=== PATIENT | female | born 1960 | race Caucasian/White ===

== ENCOUNTER 2021-08-31 11:47 | Emergency (ER) | payer OTHER, SELFPAY ==
--- NOTE | ~2021-08-31 | CT_ITS ---
EXAMINATION: CT ABDOMEN AND PELVIS WITHOUT CONTRAST CLINICAL INFORMATION: Difficulty voiding, significant L CVA tenderness COMPARISON: Ultrasound abdomen 12/09/[address] abdomen pelvis 08/05/2009r TECHNIQUE: Multidetector volumetric imaging was performed from the superior aspect of the liver through the pubic symphysis. Sagittal and coronal reformatted images were obtained on the technologist's workstation. This CT examination was performed using dose optimization techniques as appropriate, variously including the following: *Automated exposure control *Adjustment of mA and/or kV according to patient size (this includes techniques or standardized protocols for targeted exams where dose is matched to indication/reason for exam; i.e. extremities or head) *Use of iterative reconstruction technique DLP: 560 mGy-cm FINDINGS: LUNG BASES: The visualized lung bases are unremarkable. LIVER, GALLBLADDER, AND BILIARY TREE: The liver is enlarged measuring 21 cm in cephalocaudad dimension and demonstrates decreased attenuation consistent with hepatic steatosis. No focal hepatic lesion or biliary ductal dilatation is present. The gallbladder is unremarkable with no evidence of radiopaque gallstones, gallbladder wall thickening, or obvious pericholecystic inflammatory changes. PANCREAS: Unremarkable. SPLEEN: Unremarkable. ADRENAL GLANDS: Unremarkable. KIDNEYS AND URETERS: The kidneys are normal in size, shape, and attenuation. Benign bilateral parapelvic renal cysts are present, increased in size since 2009. No solid renal masses. No hydronephrosis, hydroureter, or calculi seen. No perinephric stranding. BLADDER: Unremarkable. GASTROINTESTINAL TRACT: The small and large bowel are unremarkable. The appendix is not seen but there is no evidence of appendicitis.. ABDOMINAL WALL: No significant hernia is appreciated. LYMPH NODES: Normal. VASCULAR: Unremarkable. PELVIC VISCERA: Uterus is mildly enlarged with lobulation consistent with fibroids which have been seen in the past. OSSEOUS STRUCTURES: Unremarkable. CT/CT abdomen pelvis wo con IMPRESSION: No evidence of obstructive uropathy. Benign bilateral parapelvic cysts which need no further imaging or follow-up. Redemonstration of uterine fibroids. Fleischner guidelines were followed.
[2021-08-31 13:25] VITALS: BP 114/67; PULSE 79; RESP 18; TEMP 36.7; O2SAT 100; BMI 28.1
[2021-08-31 14:33] VITALS: BP 104/69; PULSE 80; RESP 13; TEMP 36.9; O2SAT 97
--- NOTE | 2021-08-31 14:43 | ED_ITS ---
HPI - Female Genitourinary General Chief complaint: Urogenital-Female Stated complaint: Blatter pain ,trouble urinating and walking Time Seen by Provider: 08/31/21 14:26 Source: patient Mode of arrival: ambulatory Limitations: no limitations History of Present Illness HPI Narrative: Patient presents emergency department for evaluation of urinary symptoms. She reports onset of symptoms 2 days ago. Feeling suprapubic pressure having difficulty voiding, and voiding very small amounts of urine with a persistent f eeling of a full bladder afterwards. Urinary urgency as well. Today she is experiencing lower back pain radiating into the bilateral legs. She attempted to take azo [id number] for her symptoms this morning, but had no relief. She does report associated nausea without vomiting. Denies fevers, chills, upper abdominal pain, chest pain, shortness of breath, numbness or tingling of the extremities, weakness Related Data Previous Rx's Medication Instructions Recorded ciprofloxacin HCl 500 mg tablet 500 mg PO Q12H 7 days #14 tabs 08/31/21 Allergies Allergy/AdvReac Type Severity Reaction Status Date / Time No Known Allergies Allergy Verified 08/31/21 13:25 Review of Systems Review of Systems: Constitutional: No weight loss, fever, chills, weakness or fatigue. Skin: No rash or itching. Cardiovascular: No chest pain, chest pressure or chest discomfort. No palpitations Respiratory: No shortness of breath, cough or sputum production. Gastrointestinal: Positive nausea No vomiting or diarrhea. Positive abdominal pain Genitourinary: Positive burning micturition. Positive urinary urgency and hesitancy. Positive suprapubic pain Musculoskeletal: Positive back pain. No joint pain or stiffness. Psychiatric: No depression or anxiety. Yes all other systems are reviewed and are negative [facility] Past Medical History Attestation statement: The following information was validated with the patient. Source: old records reviewed Medical History (Updated 08/31/21 @ 16:37 by Lovely Moon CNP) Carpal tunnel syndrome, bilateral Diabetes HTN (hypertension) Surgical History (Updated 08/31/21 @ 15:49 by Vesta Hill) Hx of appendectomy Social History Social History Patient Tobacco Use Status: Never used Tobacco Use of substances other than those prescribed or required for medical reasons: No Advance Directives: Yes Advance Directives Information Provided: Yes Advance Directives on File: No Patient : No Physical Exam Vital Signs: Vital Signs: Last Vital Signs Temp 98.4 F 08/31/21 14:33 Pulse 75 08/31/21 15:37 Resp 14 08/31/21 15:37 BP 100/66 08/31/21 15:37 Pulse Ox 97 08/31/21 15:37 O2 Del Method 08/31/21 14:33 BMI result Body Mass Index 28.1 Vital signs have been reviewed as normal and appeared to be correct. Blood pressure normal.? Heart rate normal.? Respiration rate normal. Temperature normal.? Oxygen saturation normal. Appearance: Alert.?Oriented to person, place and time. No acute distress.?Normal affect. Eyes: Pupils equal, round and reactive to light.? ENT: Pharynx normal.?? Neck: Normal inspection.? Neck supple.?? CVS: Heart sounds normal. Normal heart rate and rhythm.? Pulses normal.?? Respiratory: No respiratory distress.? Lung sounds clear to auscultation bilaterally?? Abdomen: Soft with tenderness over the suprapubic region. Normoactive bowel sounds. Significant left CVA tenderness Skin: Skin warm and dry.? Normal skin color.? ?? Extremities: No lower extremity edema.? ? Neuro: Moves all extremities spontaneously. Sensation intact bilaterally. CN II- XII intact. No focal neuro deficits. Ambulates with normal steady gait. Course Course Course Narrative: Patient is a 61-year-old female with a past medical history of type 2 diabetes, hyperlipidemia presents emergency department for evaluation genitourinary complaints. She is overall well appearing, hemodynamically stable. Will obtain CBC to evaluate for leukocytosis/ anemia, CMP to evaluate for abnormal electrolytes /abnormal renal function/ abnormal hepatic function, Urinalysis., and CT of the abdomen/pelvis to evaluate for renal calculi, hydronephrosis given significant left CVA tenderness, in addition to a PVR bladder scan.. Reevaluation(s) Reevaluation #1: PVR bladder scan 92, no urinary retention. CBC overall unremarkable, no leukocytosis. CMP overall unremarkable, no SONI. Urinalysis reveals significant glucosuria, positive nitrates and WBC consistent with urinary tract infection, in addition microscopic hematuria. Time: 15:19 Reevaluation #2: CT of the abdomen reveals no obstructive pathology, benign bilateral parapelvic renal cysts, no hydronephrosis no perinephric stranding no calculi. At this time will treat patient for urinary tract infection with a course of antibiotics, discussed worrisome signs and symptoms to return back to the emergency department for outpatient follow-up with her primary care provider within 3 days, all questions were answered, and she was discharged home in stable condition. Time: 16:38 [facility] - Female Genitourinary Medical Records Attestation: I reviewed the patient's medical records. Lab Data Attestation: I reviewed the patient's lab results. Result diagrams: 08/31/21 14:40 08/31/21 14:40 Labs: Lab Results 08/31/21 08/31/21 08/31/21 Range/Units 14:40 14:40 14:41 WBC 8.6 (4.8-10.8) X10*3/uL RBC 5.47 (4.20-5.50) X10*6/uL Hgb 14.1 (12.0-16.0) g/dl Hct 43.8 (37.0-47.0) % MCV 80.1 (80.0-98.0) fL MCH 25.8 L (27.0-33.0) pg MCHC 32.2 (31.0-35.0) g/dl RDW 15.9 (11.0-16.0) % Plt Count 180 (160-400) X10*3/uL MPV 9.5 (9.4-12.3) fL Immature Gran % (Auto) 0.1 (0.0-0.4) % Neut % (Auto) 63.5 (45-73) % Lymph % (Auto) 28.0 (20-40) % Sampson % (Auto) 7.7 (2-11) % Eos % (Auto) 0.5 (0-4) % Baso % (Auto) 0.2 (0-2) % Lymph # (Auto) 2.4 (1.2-4.9) X10*3/uL Sampson # (Auto) 0.7 (0.1-1.2) X10*3/uL Eos # (Auto) 0.0 (0.0-0.4) X10*3/uL Baso # (Auto) 0.0 (0.0-0.2) X10*3/uL Abs Immat Gran (auto) 0.01 (0.00-0.03) X10*3/uL Absolute Neuts (auto) 5.5 (2.0-8.3) x10*3/uL Absolute Nucleated RBC 0.000 (0.0-0.012) X10*3/uL Nucleated RBC % (auto) 0.0 (0.0-0.2) /100WBC Sodium 140 (135-145) mmol/L Potassium 4.2 (3.3-5.1) mmol/L Chloride 107 (96-108) mmol/L Carbon Dioxide 25 (22-29) mmol/L Anion Gap 12 (12-20) BUN 17 H (9-16) mg/dL Creatinine 0.72 (0.5-1.4) mg/dL Estim Creat Clear Calc 92.4 Estimated GFR > 60 Random Glucose 140 H (60-115) mg/dL Calcium 9.5 (8.4-10.2) mg/dL Total Bilirubin 0.5 (0.0-1.0) mg/dL AST 12 (5-31) U/L ALT 21 (0-31) U/L Alkaline Phosphatase 84 (39-117) U/L Total Protein 6.7 (6.5-8.0) g/dL Albumin 4.2 (3.5-5.0) g/dL Urine Color ORANGE A Urine Appearance HAZY Urine pH 5.0 (5.0-8.0) Ur Specific [place] 1.025 (1.005-1.025) Urine Protein 2+ H (NEG-TRACE) MG/DL Urine Glucose (UA) >=1000 H (NEG) MG/DL Urine Ketones 5 (NEG) MG/DL Urine Blood 3+ H (NEG) Urine Nitrite POS H (NEG) Ur Leukocyte Esterase TRACE H (NEG) Urine RBC 30-49 H (0) /HPF Urine WBC 50-75 H (0-4) /HPF Ur Squamous Epith Cells NONE /LPF Urine Bacteria 3+ /LPF Imaging Data CT scan - abdomen: Radiologist's impression: CT/CT abdomen pelvis wo con IMPRESSION: No evidence of obstructive uropathy. Benign bilateral parapelvic cysts which need no further imaging or follow-up. Redemonstration of uterine fibroids Discharge Plan Discharge Clinical Impression: Urinary tract infection Patient Disposition: Home, Self-Care Instructions: Urinary Tract Infection in Women (ED) Additional Instructions: You were found to have a urinary tract infection, you have been given a prescription for an antibiotic, please complete this entire course. You should be re-evaluated if you develop severe or worsening symptoms such as fevers, chills, nausea with constant vomiting, worsening pain, inability to urinate. Follow-up with your primary care provider within 3 days. Prescriptions: New ciprofloxacin HCl 500 mg tablet 500 mg PO Q12H 7 Days Qty: 14 0RF Referrals: Ly Anderson NP [Primary Care Provider] - 3 days Interventions: ED Discharge Assessment Last Done: 08/31/21 16:59 Discharge Date/Time: 08/31/21 16:59 Print Language: [place]
[2021-08-31 14:45] LABS: MANUAL DIFF FLAG NO
[2021-08-31 14:50] LABS: Basophils Percent Auto 0.2 % (0-2); Eosinophils Percent Auto 0.5 % (0-4); Hematocrit 43.8 % (37.0-47.0); Hemoglobin 14.1 g/dl (12.0-16.0); Imm Gran Abs Auto 0.01 X10*3/uL (0.00-0.03); Imm Gran Pct Auto 0.1 % (0.0-0.4); Lymphocytes Absolute Auto 2.4 X10*3/uL (1.2-4.9); Mean Corpuscular HGB Conc 32.2 g/dl (31.0-35.0); Mean Corpuscular Hemoglobin 25.8 pg (27.0-33.0); Mean Corpuscular Volume 80.1 fL (80.0-98.0); Mean Platelet Volume 9.5 fL (9.4-12.3); Monocytes Absolute Auto 0.7 X10*3/uL (0.1-1.2); Monocytes Percent Auto 7.7 % (2-11); Neutrophils Absolute Auto 5.5 x10*3/uL (2.0-8.3); Neutrophils Percent Auto 63.5 % (45-73); Platelet Count 180 X10*3/uL (160-400); Red Blood Count 5.47 X10*6/uL (4.20-5.50); Red Cell Distribution Width 15.9 % (11.0-16.0); White Blood Count 8.6 X10*3/uL (4.8-10.8)
[2021-08-31 14:59] LABS: Appearance Urine HAZY; Color Urine ORANGE; Glucose Urine UA >=1000 MG/DL (NEG); Leukocyte Esterase Urine TRACE (NEG); Nitrite Urine POS (NEG); Specific Gravity - Urine 1.025 (1.005-1.025); UACC Culture Trigger YES; Urine Blood 3+ (NEG); Urine Ketones 5 MG/DL (NEG); Urine Protein 2+ MG/DL (NEG-TRACE)
[2021-08-31 15:08] LABS: Alanine Aminotransferase 21 U/L (0-31); Albumin Level 4.2 g/dL (3.5-5.0); Alkaline Phosphatase 84 U/L (39-117); Anion Gap 12 (12-20); Aspartate Amino Transferase 12 U/L (5-31); Bilirubin Total 0.5 mg/dL (0.0-1.0); Blood Urea Nitrogen 17 mg/dL (9-16); Calcium 9.5 mg/dL (8.4-10.2); Carbon Dioxide 25 mmol/L (22-29); Chloride 107 mmol/L (96-108); Creatinine Clr Calc Pharmacy 92.4; Estimated Glomerular Filt Rate > 60; Glucose Random 140 mg/dL (60-115); Potassium 4.2 mmol/L (3.3-5.1); Sodium 140 mmol/L (135-145); Total Protein 6.7 g/dL (6.5-8.0)
[2021-08-31 15:14] LABS: WBC Urine 50-75 /HPF (0-4)
[2021-08-31 15:15] LABS: Bacteria Urine 3+ /LPF; RBC Urine 30-49 /HPF (0)
[2021-08-31 15:37] VITALS: BP 100/66; PULSE 75; RESP 14; O2SAT 97
== END 2021-08-31 16:59 | disposition home or self-care (01) ==
PROVIDERS: Emergency Provider Emergency Medicine Emergency Medical Services; PCP Nurse Practitioner Family
DX: N39.0 Urinary tract infection, site not specified (principal); B96.20 Unspecified Escherichia coli [E. coli] as the cause of diseases classified elsewhere; R31.29 Other microscopic hematuria; R39.15 Urgency of urination; E11.9 Type 2 diabetes mellitus without complications; I10 Essential (primary) hypertension
CPT/HCPCS: 36415; 51798; 74176; 80053; 81001; 85025; 87086; 87088; 87186; 99284

== ENCOUNTER 2022-04-29 23:28 | Emergency (ER) | payer OTHER, SELFPAY ==
--- NOTE | ~2022-04-29 | CT_ITS ---
EXAMINATION: CT ABDOMEN AND PELVIS WITH CONTRAST CLINICAL INFORMATION: Epigastric pain COMPARISON: 08/31/2021 TECHNIQUE: Multidetector volumetric images were obtained from the superior aspect of the liver through the pubic symphysis following administration 85 mL of Omnipaque 350 intravenous contrast. Sagittal and coronal reformatted images were obtained on the technologist's workstation. Oral contrast: No This CT examination was performed using dose optimization techniques as appropriate, variously including the following: *Automated exposure control *Adjustment of mA and/or kV according to patient size (this includes techniques or standardized protocols for targeted exams where dose is matched to indication/reason for exam; i.e. extremities or head) *Use of iterative reconstruction technique DLP: 573 mGy-cm FINDINGS: LUNG BASES: The visualized lung bases are unremarkable. LIVER, GALLBLADDER, AND BILIARY TREE: The liver is enlarged measuring 21 cm in CC dimension. Normal shape and attenuation. No focal hepatic lesion or biliary ductal dilatation is present. The gallbladder is unremarkable with no evidence of radiopaque gallstones, gallbladder wall thickening, or obvious pericholecystic inflammatory changes. PANCREAS: Unremarkable. SPLEEN: Unremarkable. ADRENAL GLANDS: Unremarkable. KIDNEYS AND URETERS: The kidneys are normal in size, shape, and attenuation. No hydronephrosis, hydroureter, or calculi seen. No perinephric stranding. Simple cyst at the upper pole of the right kidney. Small parapelvic cysts on the left. No specific follow-up recommended. BLADDER: Unremarkable. GASTROINTESTINAL TRACT: The stomach is distended. Normal caliber small bowel. No obstruction. No colonic wall thickening or inflammation. No free air or free fluid. ABDOMINAL WALL: No significant hernia is appreciated. LYMPH NODES: Normal. VASCULAR: Unremarkable. PELVIC VISCERA: Anteverted uterus with lobulations, suggestive of fibroids. No adnexal mass. OSSEOUS STRUCTURES: No acute or suspicious osseous abnormality. Mild degenerative change in the spine and hips. Fixation hardware in the left femur. CT/CT abdomen pelvis w IV con IMPRESSION: 1. No acute findings in the abdomen or pelvis. No inflammatory changes. 2. Hepatomegaly. 3. Distended stomach Fleischner guidelines were followed.
[2022-04-29 23:30] VITALS: BP 127/83; PULSE 104; RESP 20; TEMP 36.5; O2SAT 99; BMI 26.6
[2022-04-30 00:09] LABS: MANUAL DIFF FLAG NO
[2022-04-30 00:11] LABS: Basophils Percent Auto 0.2 % (0-2); Eosinophils Absolute Auto 0.1 X10*3/uL (0.0-0.4); Eosinophils Percent Auto 1.5 % (0-4); Hematocrit 45.3 % (37.0-47.0); Hemoglobin 14.8 g/dl (12.0-16.0); Imm Gran Abs Auto 0.02 X10*3/uL (0.00-0.03); Imm Gran Pct Auto 0.2 % (0.0-0.4); Lymphocytes Absolute Auto 1.5 X10*3/uL (1.2-4.9); Lymphocytes Percent Auto 17.6 % (20-40); Mean Corpuscular HGB Conc 32.7 g/dl (31.0-35.0); Mean Corpuscular Volume 76.6 fL (80.0-98.0); Mean Platelet Volume 9.1 fL (9.4-12.3); Monocytes Absolute Auto 0.5 X10*3/uL (0.1-1.2); Monocytes Percent Auto 5.3 % (2-11); Neutrophils Absolute Auto 6.6 x10*3/uL (2.0-8.3); Neutrophils Percent Auto 75.2 % (45-73); Platelet Count 209 X10*3/uL (160-400); Red Blood Count 5.91 X10*6/uL (4.20-5.50); Red Cell Distribution Width 14.1 % (11.0-16.0); White Blood Count 8.8 X10*3/uL (4.8-10.8)
[2022-04-30 00:27] LABS: Alanine Aminotransferase 17 U/L (0-31); Alkaline Phosphatase 99 U/L (39-117); Anion Gap 15 (12-20); Aspartate Amino Transferase 15 U/L (5-31); Bilirubin Direct < 0.2 mg/dL (0.0-0.5); Bilirubin Total 0.6 mg/dL (0.0-1.0); Blood Urea Nitrogen 18 mg/dL (9-16); Calcium 9.2 mg/dL (8.4-10.2); Carbon Dioxide 25 mmol/L (22-29); Chloride 104 mmol/L (96-108); Creatinine Clr Calc Pharmacy 93.9; Estimated Glomerular Filt Rate > 60; Glucose Random 164 mg/dL (60-115); Lipase 20 U/L (8-78); Sodium 140 mmol/L (135-145); Total Protein 6.3 g/dL (6.5-8.0)
--- OUTSIDE RECORDS SUMMARY | 2022-04-30 00:34 | XMS_ITS | Continuity of Care Document ---
:1960 Author Organization [facility] Address [address] [place] [address]- Care Team Providers Name Role Phone Justin MIMS, Ly Rivers Primary Care Physician [phone] [place] [facility]): [place]/08[place]19 - 07/08/19 [facility] [address] [place] [id number] [facility] Attending Physician: Trevon Walls Admitting Physician: AdmtrTrevon Referring Physician: Admtr, Ar8 Allergies, Adverse Reactions, Alerts Substance Reaction Severity Status NKA Active Immunizations Given and Recorded Vaccine Date Status Refusal Reason influenza virus vaccine, inactivated1 03/10/19 Given tetanus/diphtheria/pertussis, acel(Tdap) 06/22/11 Recorde d Hepatitis B Vaccine (old term) 01/03/10 Recorded Hepatitis B Vaccine (old term) 03/19/08 Recorded Hepatitis B Vaccine (old term) 01/16/08 Recorded pneumococcal 23-valent vaccine 01/03/10 Recorded tetanus-diphtheria toxoids (Td) 05/20/07 Recorded 1Result Comment: [facility]U [facility] [id number] Medications amitriptyline 25 mg oral tablet 50 mg, 2, tablet, By Mouth, Daily at bedtime, 2 tab at bedtime. print in swedish please, # 60 tablet, Refills 6, Tot. Refills 6, Maintenance, 04/21/19 10:06:00 EDT, Route to Pharmacy Electronically, [facility] - [place], 167, cm, 03/17... Start Date: 04/21/19 Stop Date: 11/17/19 Status: OrderedGas-X Extra Strength 125 mg oral tablet, chewable See Instructions, 1 tablet Chew 4 times a day, # 90 tablet, 1 Refills, Maintenance, 08/18/18 9:53:36EDT, Chew Tablet Start Date: 08/18/18 Status: OrderedJardiance 10 mg oral tablet 1 tablet = 10 mg, By Mouth, Daily in AM, # 30 tablet, 4 Refills, Maintenance, 04/30/19 16:56:00 EDT,Tablet, [facility], 167, cm, 04/30/19 8:51:00 EDT, Height Start Date: 04/30/19 Stop Date: 09/27/19 Status: OrderedLantus Solostar Pen 100 units/mL subcutaneous solution = 45 units, Subcutaneous Injection, Daily at bedtime, rotate injection sites with evening meal, # 15mL, 3 Refills, Maintenance, 05/12/19 14:23:00 EDT, Injection, [facility], dose increase, 167, cm, 05/12/19 13:30:00 EDT, Height Start Date: 05/12/19 Stop Date: 09/09/19 Status: Orderedlisinopril 30 mg oral tablet 1 tablet = 30 mg, By Mouth, Daily, # 30 tablet, 5 Refills, Maintenance, 05/04/19 9:58:00 EDT, Tablet, [facility], 167, cm, 04/30/19 8:51:00 EDT, Height Start Date: 05/04/19 Stop Date: 10/31/19 Status: OrderedmetFORMIN 1000 mg oral tablet 1 tablet = 1,000 mg, By Mouth, 2 times a day, # 60 tablet, 5 Refills, Maintenance, 03/09/19 14:35:00EST, Tablet, [facility] - [place], 167, cm, 11/18/18 14:43:00 EDT, Height Start Date: 03/09/19 Stop Date: 09/05/19 Status: Orderedomeprazole 20 mg oral delayed release tablet 1 tablet = 20 mg, By Mouth, Daily, # 30 tablet, 11 Refills, Maintenance, 08/18/18 9:49:46 EDT Start Date: 08/18/18 Stop Date: 08/13/19 Status: Orderedsimvastatin 40 mg oral tablet 40 mg, 1, tablet, By Mouth, Daily at bedtime, # 30 tablet, Refills 5, Tot. Refills 5, Maintenance, 03/09/19 14:28:00 EST, Route to Pharmacy Electronically, [facility] - , 167, cm,11/18/18 14:43:00 EDT, Height Start Date: 03/09/19 Stop Date: 09/05/19 Status: OrderedTrulicity Pen 1.5 mg/0.5 mL subcutaneous solution 0.5 mL = 1.5 mg, Subcutaneous Injection, Every week, rotate injection sites, # 2 mL, 11 Refills, Maintenance, 05/12/19 14:21:00 EDT, Solution, [facility], 167, cm, 05/12/19 13:30:00EDT, Height Start Date: 05/12/19 Status: OrderedUlticare pen needles 4mm 32g Ulticare pen needles 4mm 32g, See Instructions, # 200 each, Refills 2, Tot. Refills 2, Maintenance, use daily to test blood sugars dx e11.6, 10/09/18 16:44:57 EDT, Compound Start Date: 10/09/18 Status: OrderedVitamin D3 2000 intl units oral capsule 1 capsule = 2,000 International_Units, By Mouth, Daily, # 30 capsule, 3 Refills, Maintenance, 07/01/19 14:51:00 EDT, Capsule, [facility], 167, cm, 05/12/19 13:30:00 EDT, Height Start Date: 07/01/19 Stop Date: 10/29/19 Status: Ordered Problem List Condition Effective Dates Status Health Status Informant Diabetes(Confirmed) Active Hypertension(Confirmed) Active Hypertriglyceridemia(Confirmed) Active Migraines(Confirmed) Active Uncontrolled type 2 diabetes Active mellitus(Confirmed) Social History Social History Type Response Smoking Status Never (less than 100 in life time) entered on: 06/12/18 Sex
--- OUTSIDE RECORDS SUMMARY | 2022-04-30 00:35 | XMS_ITS | Continuity of Care Document ---
:1960 Author Organization [facility] Address [address] [place] [address]- Care Team Providers Name Role Phone Justin MIMS, Ly Rivers Primary Care Physician [phone] [facility] [place] [facility] [address] [place] [id number]- Allergies, Adverse Reactions, Alerts No Known Allergies Immunizations Given and Recorded Vaccine Date Status Refusal Reason SARS-CoV-2 (COVID-19) mRNA BNT-162b2 vac 10/06/20 Recorde d SARS-CoV-2 (COVID-19) mRNA BNT-162b2 vac 09/15/20 Recorde d influenza virus vaccine, inactivated 10/15/19 Recorded influenza virus vaccine, inactivated1 03/10/19 Given influenza virus vaccine, inactivated 12/18/16 Recorded influenza virus vaccine, inactivated 12/09/13 Recorded influenza virus vaccine, inactivated 10/21/09 Recorded influenza virus vaccine, inactivated 01/16/08 Recorded Influenza Virus Vaccine (oldterm) 10/13/19 Recorded tetanus/diphtheria/pertussis, acel(Tdap) 06/22/11 Recorde d pneumococcal 23-valent vaccine 01/03/10 Recorded Hepatitis B Vaccine (old term) 01/03/10 Recorded Hepatitis B Vaccine (old term) 03/19/08 Recorded Hepatitis B Vaccine (old term) 01/16/08 Recorded tetanus-diphtheria toxoids (Td) 05/20/07 Recorded 1Result Comment: FLU [facility] 84133-414-86 Medications amitriptyline 25 mg oral tablet 2, tablet, By Mouth, Daily at bedtime, # 60 tablet, Refills 7, Route to Pharmacy Electronically, [facility], 167, cm, 08/03/21 14:26:00 EDT, Height Start Date: 08/15/21 Status: Orderedcetirizine 10 mg oral tablet 1 tablet = 10 mg, By Mouth, Daily, # 14 tablet, 0 Refills, Maintenance, 05/26/20 8:18:00 EDT, Tablet, [facility], [place] instructions, 167, cm, 04/19/20 9:56:00 EST, Height Start Date: 05/26/20 Stop Date: 06/09/20 Status: Ordereddulaglutide 1.5 mg/0.5 mL subcutaneous solution 0.5 mL = 1.5 mg, Subcutaneous Injection, Every week, # 4 each, 11 Refills, Maintenance, 07/20/21 9:20:00 EDT, Solution, [facility], Partial fill upon patient request if the prescription is for a schedule II opioid drug., 167, cm, 0... Start Date: 07/20/21 Stop Date: 07/15/22 Status: OrderedFreestyle lite glucometer Freestyle lite glucometer, See Instructions, # 1 pack/packet, Refills 0, Tot. Refills 0, Maintenance, freestyle lite glucometer, 05/17/21 16:04:00 EDT, Supply, 167, cm, 05/17/21 15:37:00 EDT, Height Start Date: 05/17/21 Status: Orderedfreestyle lite lancets freestyle lite lancets, See Instructions, # 1 pack/packet, Refills 6, Tot. Refills 6, Maintenance, to use to check blood sugars up to 4 times a day with 30 days supply, 05/17/21 16:04:00 EDT, Supply, 167, cm, 05/17/21 15:37:00 EDT, Height Start Date: 05/17/21 Status: Orderedfreestyle lite strips freestyle lite strips, See Instructions, # 1 pack/packet, Refills 6, Tot. Refills 6, Maintenance, freestyle lite strips to check blood sugars four times a day 30 days supply, 05/17/21 16:04:00 EDT, Supply, 167, cm, 05/17/21 15:37:00 EDT, Height Start Date: 05/17/21 Status: OrderedGas-X Extra Strength 125 mg oral tablet, chewable See Instructions, 1 tablet Chew 4 times a day, # 90 tablet, 1 Refills, Maintenance, 08/18/18 9:53:36EDT, Chew Tablet Start Date: 08/18/18 Status: Orderedhydrocortisone 2.5% topical ointment See Instructions, 1 application Topically 3 times a day, as needed for rash. apply in a thin film tothe affected skin and rub in gently and completel, # 20 Gm, 0 Refills, Maintenance, 08/16/21 16:27:00 EDT, Ointment, [facility],... Start Date: 08/16/21 Status: OrderedhydrOXYzine hydrochloride 25 mg oral tablet 1 tablet = 25 mg, By Mouth, 3 times a day, PRN for itching, # 90 tablet, 0 Refills, Maintenance, 08/23/20 11:33:00 EDT, Tablet, [facility], Partial fill upon patient request if the prescription is for a schedule II opioid drug., 16... Start Date: 08/23/20 Stop Date: 09/22/20 Status: OrderedJardiance 25 mg oral tablet 1 tablet = 25 mg, By Mouth, Daily in AM, # 30 tablet, 11 Refills, Maintenance, 10/25/20 16:03:00 EDT, Tablet, [facility], Partial fill upon patient request if the prescription is for a schedule II opioid drug., 167, cm, 10/25/20 15... Start Date: 10/25/20 Stop Date: 10/20/21 Status: OrderedLantus Solostar Pen 100 units/mL subcutaneous solution See Instructions, INJECT 50 UNITS SUBCUTANEOUSLY EVERY EVENING WITH DINNER. ROTATE INJECTION SITES.,# 15 mL, 5 Refills, 06/08/21 11:27:00 EDT, [facility], 167, cm, 05/17/21 15:37:00 EDT, Height Start Date: 06/08/21 Status: Orderedlisinopril 30 mg oral tablet See Instructions, TAKE 1 TABLET BY MOUTH EVERYDAY AT NOON, # 30 tablet, 2 Refills, [facility], 167, cm, 08/16/21 16:12:00 EDT, Height Start Date: 09/07/21 Status: OrderedmetFORMIN 1000 mg oral tablet See Instructions, TAKE 1 TABLET BY MOUTH TWICE DAILY IN THE MORNING AND AT BEDTIME, # 180 tablet, 1 Refills, 06/08/21 11:58:00 EDT, [facility], 167, cm, 05/17/21 15:37:00 EDT, Height Start Date: 06/08/21 Status: OrderedMetroCream 0.75% topical cream 1 application, Topically, 2 times a day, to facial rash, after washing, # 45 Gm, 0 Refills, Maintenance, 09/11/21 11:03:00 EDT, Cream, [facility], Partial fill upon patient request if the prescription is for a schedule II opioid dr... Start Date: 09/11/21 Status: Orderedomeprazole 20 mg oral delayed release tablet 1 tablet = 20 mg, By Mouth, Daily, PRN for acid reflux, for 30 days, # 30 tablet, 11 Refills, Acute 07/15/22 9:24:00 EDT, 07/20/21 9:24:00 EDT, [facility], 167, cm, 07/20/21 8:40:00EDT, Height Start Date: 07/20/21 Stop Date: 07/15/22 Status: OrderedPen [place], 31 G x 5 mm BD Ultra Fine III See Instructions, # 100 each, Refills 5, Tot. Refills 5, Maintenance, Use to inject insulin everydayDx: Type 2 Diabetes Mellitus, 01/23/21 14:48:00 EST, Supply, 167, cm, 10/25/20 16:32:00 EDT, Height Start Date: 01/23/21 Stop Date: 07/22/21 Status: OrderedProAir HFA 90 mcg/inh inhalation aerosol 1 puffs, Inhalation, 4 times a day, PRN Shortness of Breath, # 1 each, 0 Refills, Maintenance, 03/17/20 8:42:00 EST, Aerosol, [facility], Partial fill upon patient request if the prescription is for a schedule II opioid drug., 1 pu... Start Date: 03/17/20 Stop Date: 04/16/20 Status: Orderedsertraline 25 mg oral tablet 1 tablet = 25 mg, By Mouth, Daily, # 30 tablet, 6 Refills, Maintenance, 09/28/21 9:11:00 EDT, Tablet, [facility], Partial fill upon patient request if the prescription is for a schedule II opioid drug., 167, keny, 09/11/21 10:23:00 E... Start Date: 09/28/21 Stop Date: 04/26/22 Status: Orderedsimvastatin 40 mg oral tablet 1, tablet, By Mouth, Daily at bedtime, # 90 tablet, Refills 1, Route to Pharmacy Electronically, [facility], 167, keny, 05/17/21 15:37:00 EDT, Height Start Date: 06/01/21 Status: OrderedUlticare pen needles 4mm 32g Ulticare pen needles 4mm 32g, See Instructions, # 200 each, Refills 2, Tot. Refills 2, Maintenance, use daily to test blood sugars dx e11.6, 10/09/18 16:44:57 EDT, Compound Start Date: 10/09/18 Status: OrderedVitamin D3 2000 intl units oral capsule See Instructions, TAKE 1 CAPSULE BY MOUTH EVERYDAY AT NOON, # 30 capsule, 5 Refills, 09/07/21 15:33:00 EDT, [facility], 167, keny, 08/16/21 16:12:00 EDT, Height Start Date: 09/07/21 Status: Ordered Problem List Condition Effective Dates Status Health Status Informant Hypertension(Confirmed) Active Hypertriglyceridemia(Confirmed) Active Migraines(Confirmed) Active MDD (major depressive disorder), Active recurrent severe, 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
--- OUTSIDE RECORDS SUMMARY | 2022-04-30 00:35 | XMS_ITS | Continuity of Care Document ---
:1960 Author Organization [facility] Address [address] [place] [address]- Care Team Providers Name Role Phone Justin MIMS, Ly Rivers Primary Care Physician [phone] [place] [facility] [place]21 [facility] [address] [place] [phone]- Attending Physician: Ly Anderson NP Allergies, Adverse Reactions, Alerts No Known Allergies [...] toxoids (Td) 05/20/07 Recorded 1Result Comment: FLU [facility] [id number] Medications amitriptyline 25 mg oral tablet 2, tablet, By Mouth, Daily at bedtime, # 60 tablet, Refills 7, Route to Pharmacy Electronically, [facility], 167, cm, 10/25/20 16:32:00 EDT, Height Start Date: 11/29/20 Status: Orderedcetirizine 10 mg oral tablet 1 tablet = 10 mg, By Mouth, Daily, # 14 tablet, 0 Refills, Maintenance, 05/26/20 8:18:00 EDT, Tablet, [facility], [place] instructions, 167, cm, 04/19/20 9:56:00 EST, Height Start Date: 05/26/20 Stop Date: 06/09/20 Status: Ordereddulaglutide 1.5 mg/0.5 mL subcutaneous solution 0.5 mL = 1.5 mg, Subcutaneous Injection, Every week, # 4 each, 11 Refills, Maintenance, 07/20/21 9:20:00 EDT, Solution, [facility], Partial fill upon patient request if [...] 9:53:36EDT, Chew Tablet Start Date: 08/18/18 Status: OrderedhydrOXYzine hydrochloride 25 mg oral tablet 1 tablet = 25 mg, By Mouth, 3 times a day, PRN for itching, # 90 tablet, 0 Refills, Maintenance, 08/23/20 11:33:00 EDT, Tablet, [facility], Partial fill upon patient request if the prescription is for a schedule II opioid drug., 16... Start Date: 08/23/20 Stop Date: 09/22/20 Status: OrderedJardiance 25 mg oral tablet 1 tablet = 25 mg, By Mouth, Daily in AM, # 30 tablet, 11 Refills, Maintenance, 10/25/20 16:03:00 EDT, Tablet, [facility], Partial fill upon patient request if the prescription is for a schedule II opioid drug., 167, cm, 10/25/20 15... Start Date: 10/25/20 Stop Date: 10/20/21 Status: OrderedLantus Solostar Pen 100 units/mL subcutaneous solution See Instructions, INJECT 50 UNITS SUBCUTANEOUSLY EVERY EVENING WITH DINNER. ROTATE INJECTION SITES.,# 15 mL, 5 Refills, 06/08/21 11:27:00 EDT, [facility], 167, cm, 05/17/21 15:37:00 EDT, Height Start Date: 06/08/21 Status: Orderedlisinopril 30 mg oral tablet See Instructions, TAKE 1 TABLET BY MOUTH EVERYDAY AT NOON, # 30 tablet, 2 Refills, [facility], 167, cm, 05/17/21 15:37:00 EDT, Height Start Date: 06/08/21 Status: OrderedmetFORMIN 1000 mg oral tablet See Instructions, TAKE 1 TABLET BY MOUTH TWICE DAILY IN THE MORNING AND AT BEDTIME, # 180 tablet, 1 Refills, 06/08/21 11:58:00 EDT, [facility], 167, cm, 05/17/21 15:37:00 EDT, Height Start Date: 06/08/21 Status: Orderedomeprazole 20 mg oral delayed release tablet 1 tablet = 20 mg, By Mouth, Daily, PRN for acid reflux, for 30 days, # 30 tablet, 11 Refills, Acute 07/15/22 9:24:00 EDT, 07/20/21 9:24:00 EDT, [facility], 167, cm, 07/20/21 8:40:00EDT, Height Start Date: 07/20/21 Stop Date: 07/15/22 Status: OrderedPen [place], 31 G x 5 mm BD Ultra [...] 0 Refills, Maintenance, 03/17/20 8:42:00 EST, Aerosol, [facility], Partial fill upon patient request if the prescription is for a schedule II opioid drug., 1 pu... Start Date: 03/17/20 Stop Date: 04/16/20 Status: Orderedsimvastatin 40 mg oral tablet 1, tablet, By Mouth, Daily at bedtime, # 90 tablet, Refills 1, Route to Pharmacy Electronically, [facility], 167, cm, 05/17/21 15:37:00 EDT, Height Start Date: 06/01/21 [...] AT NOON, # 30 capsule, 5 Refills, [facility], 167, cm, 02/24/21 11:47:00 EST, Height Start Date: 03/05/21 Status: Ordered Problem List Condition Effective Dates Status Health Status Informant Hypertension(Confirmed) Active Hypertriglyceridemia(Confirmed) Active Migraines(Confirmed) Active Uncontrolled type 2 diabetes Active mellitus(Confirmed) Social History Social History Type Response Smoking Status Never (less than 100 in life time) entered on: 06/12/18 Sex
--- OUTSIDE RECORDS SUMMARY | 2022-04-30 00:35 | XMS_ITS | Continuity of Care Document ---
:1960 Author Organization [facility] Address [address] [place] [id number]- Care Team Providers Name Role Phone Justin MIMS, Ly Rivers Primary Care Physician [place] [facility] [place] 05[place]14/[address] [address]- [facility] Discharge Disposition: A-D/C Home Attending Physician: Ly Anderson NP Admitting Physician: Ly Anderson NP Referring Physician: Ly Anderson NP Allergies, Adverse Reactions, Alerts Substance Reaction Severity [...] toxoids (Td) 05/20/07 Recorded 1Result Comment: FLU [facility] [id number] Medications amitriptyline 25 mg oral tablet 50 mg, 2, tablet, By Mouth, Daily at bedtime, 2 tab at bedtime. print in romansh please, # 60 tablet, Refills 6, Tot. Refills 6, Maintenance, 04/21/19 10:06:00 EDT, Route to Pharmacy Electronically, [facility] [place], 167, cm, 03/17... [...] tablet, 4 Refills, Maintenance, 04/30/19 16:56:00 EDT,Tablet, [facility], 167, cm, 04/30/19 8:51:00 EDT, Height Start Date: 04/30/19 Stop Date: 09/27/19 Status: OrderedLantus Solostar Pen 100 units/mL subcutaneous solution = 45 units, Subcutaneous Injection, Daily at bedtime, rotate injection sites with evening meal, # 15mL, 3 Refills, Maintenance, 05/12/19 14:23:00 EDT, Injection, [facility], dose increase, 167, cm, 05/12/19 13:30:00 EDT, Height Start Date: 05/12/19 Stop Date: 09/09/19 Status: Orderedlisinopril 30 mg oral tablet 1 tablet = 30 mg, By Mouth, Daily, # 30 tablet, 5 Refills, Maintenance, 05/04/19 9:58:00 EDT, Tablet, [facility], 167, cm, 04/30/19 8:51:00 EDT, Height Start Date: 05/04/19 Stop Date: 10/31/19 Status: OrderedmetFORMIN 1000 mg oral tablet 1 tablet = 1,000 mg, By Mouth, 2 times a day, # 60 tablet, 5 Refills, Maintenance, 03/09/19 14:35:00EST, Tablet, [facility] [place], 167, cm, 11/18/18 [...] 03/09/19 14:28:00 EST, Route to Pharmacy Electronically, [facility] - , 167, cm,11/18/18 14:43:00 EDT, Height Start Date: 03/09/19 Stop Date: 09/05/19 Status: OrderedTrulicity Pen 1.5 mg/0.5 mL subcutaneous solution 0.5 mL = 1.5 mg, Subcutaneous Injection, Every week, rotate injection sites, # 2 mL, 11 Refills, Maintenance, 05/12/19 14:21:00 EDT, Solution, [facility], 167, cm, 05/12/19 13:30:00EDT, Height [...] Daily, # 30 capsule, 3 Refills, Maintenance, 03/09/19 11:00:00 EST, Capsule, [facility] - , 167, cm, 11/18/18 14:43:00 EDT, Height Start Date: 03/09/19 Stop Date: 07/07/19 Status: Ordered Problem List Condition Effective Dates Status Health Status Informant Diabetes(Confirmed) Active Hypertension(Confirmed) Active Hypertriglyceridemia(Confirmed) Active Migraines(Confirmed) Active Uncontrolled type 2 diabetes Active mellitus(Confirmed) Social History Social History Type Response Smoking Status Never (less than 100 in life time) entered on: 06/12/18 Sex
--- OUTSIDE RECORDS SUMMARY | 2022-04-30 00:35 | XMS_ITS | Continuity of Care Document ---
:1960 Author Organization [facility] Address [address] [place] [address]- Care Team Providers Name Role Phone Justin MIMS, Ly Rivers Primary Care Physician [place] [facility] [place] 08[place]21 [facility] [address] [place] [address]- Encounter Diagnosis Facial rash (Discharge Diagnosis) - 08/16/21 Attending Physician: Kevin Vale DO Referring Physician: Ly Anderson NP Allergies, Adverse [...] toxoids (Td) 05/20/07 Recorded 1Result Comment: FLU [facility] [id number] Medications amitriptyline 25 mg oral tablet 2, tablet, By Mouth, Daily at bedtime, # 60 tablet, Refills 7, Route to Pharmacy Electronically, [facility], 167, cm, 08/03/21 14:26:00 EDT, Height Start Date: 08/15/21 Status: Orderedcetirizine 10 mg oral tablet 1 tablet = 10 mg, By Mouth, Daily, # 14 tablet, 0 Refills, Maintenance, 05/26/20 8:18:00 EDT, Tablet, [facility], [place] instructions, 167, cm, 04/19/20 9:56:00 EST, Height Start Date: 05/26/20 Stop Date: 06/09/20 Status: Ordereddulaglutide 1.5 mg/0.5 mL subcutaneous solution 0.5 mL = 1.5 mg, Subcutaneous Injection, Every week, # 4 each, 11 Refills, Maintenance, 07/20/21 9:20:00 EDT, Solution, [facility], Partial fill upon patient request if [...] 0 Refills, Maintenance, 08/16/21 16:27:00 EDT, Ointment, [facility],... Start Date: 08/16/21 Status: OrderedhydrOXYzine hydrochloride 25 mg oral tablet 1 tablet = 25 mg, By Mouth, 3 times a day, PRN for itching, # 90 tablet, 0 Refills, Maintenance, 08/23/20 11:33:00 EDT, Tablet, [facility], Partial fill upon patient request if the prescription is for a schedule II opioid drug., 16... Start Date: 08/23/20 Stop Date: 09/22/20 Status: OrderedJardiance 25 mg oral tablet 1 tablet = 25 mg, By Mouth, Daily in AM, # 30 tablet, 11 Refills, Maintenance, 10/25/20 16:03:00 EDT, Tablet, [facility], Partial fill upon patient request if the prescription is for a schedule II opioid drug., 167, cm, 10/25/20 15... Start Date: 10/25/20 Stop Date: 10/20/21 Status: OrderedLantus Solostar Pen 100 units/mL subcutaneous solution See Instructions, INJECT 50 UNITS SUBCUTANEOUSLY EVERY EVENING WITH DINNER. ROTATE INJECTION SITES.,# 15 mL, 5 Refills, 06/08/21 11:27:00 EDT, [facility], 167, cm, 05/17/21 15:37:00 EDT, Height Start Date: 06/08/21 Status: Orderedlisinopril 30 mg oral tablet See Instructions, TAKE 1 TABLET BY MOUTH EVERYDAY AT NOON, # 30 tablet, 2 Refills, [facility], 167, cm, 05/17/21 15:37:00 EDT, Height Start Date: 06/08/21 Status: OrderedmetFORMIN 1000 mg oral tablet See Instructions, TAKE 1 TABLET BY MOUTH TWICE DAILY IN THE MORNING AND AT BEDTIME, # 180 tablet, 1 Refills, 06/08/21 11:58:00 EDT, [facility], 167, cm, 05/17/21 15:37:00 EDT, Height Start Date: 06/08/21 Status: Orderedomeprazole 20 mg oral delayed release tablet 1 tablet = 20 mg, By Mouth, Daily, PRN for acid reflux, for 30 days, # 30 tablet, 11 Refills, Acute 07/15/22 9:24:00 EDT, 07/20/21 9:24:00 EDT, [facility], 167, cm, 07/20/21 8:40:00EDT, Height Start Date: 07/20/21 Stop Date: 07/15/22 Status: OrderedPen [place], 31 G x 5 mm BD Ultra [...] 0 Refills, Maintenance, 03/17/20 8:42:00 EST, Aerosol, [facility], Partial fill upon patient request if the prescription is for a schedule II opioid drug., 1 pu... Start Date: 03/17/20 Stop Date: 04/16/20 Status: Orderedsimvastatin 40 mg oral tablet 1, tablet, By Mouth, Daily at bedtime, # 90 tablet, Refills 1, Route to Pharmacy Electronically, [facility], 167, cm, 05/17/21 15:37:00 EDT, Height [...] AT NOON, # 30 capsule, 5 Refills, [facility], 167, cm, 02/24/21 11:47:00 EST, Height Start Date: 03/05/21 Status: Ordered Problem List Condition Effective Dates Status Health Status Informant Hypertension(Confirmed) Active Hypertriglyceridemia(Confirmed) Active Migraines(Confirmed) Active MDD (major depressive disorder), Active recurrent severe, 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) Uncontrolled type 2 diabetes Active mellitus(Confirmed) Diagnosis Diagnosis Type Effective Dates Health Status Clinical Serv ice Informant Facial rash Discharge 08/16/21 Diagnosis Vital Signs Most recent to oldest [Reference Range]: 1 Height 167 cm (08/16/21 4:12 PM) Oxygen Saturation [94-100 %] 100 % (08/16/21 4:12 PM) Pulse Rate [55-90 bpm] 69 bpm (08/16/21 4:12 PM) Blood Pressure [90-138/55-84 mm Hg] 121/72 mm Hg (08/16/21 4:12 PM) Respiratory Rate [16-30 br/min] 18 br/min (08/16/21 4:12 PM) Temperature [96.8-100.4 DegF] 97.6 DegF (08/16/21 4:12 PM) Mode of Delivery (Oxygen) Room air (08/16/21 4:12 PM) Blood pressure sites Arm, right (08/16/21 4:12 PM) Temperature Route Temporal (08/16/21 4:12 PM) Social History Social History Type Response Smoking Status Never (less than 100 in life time) entered on: 06/12/18 Sex
--- OUTSIDE RECORDS SUMMARY | 2022-04-30 00:35 | XMS_ITS | Continuity of Care Document ---
:1960 Author Organization [facility] Address [address] [place] [address], 3rd Floor, [address] [place] [address]- Care Team Providers Name Role Phone Justin MIMS, Ly Rivers Primary Care Physician [phone] [place] [facility] [place]): [place]20 - 04/21/20 [facility] [address] [facility], 3rd Floor, [address] [place] [id number] Attending Physician: Mackenzie Woodard MD Referring Physician: Ly Anderson NP Allergies, Adverse Reactions, Alerts Substance Reaction Severity Status NKA Active Immunizations Given and Recorded Vaccine Date Status Refusal Reason Influenza Virus Vaccine (oldterm) 10/13/19 Recorded influenza virus vaccine, inactivated1 03/10/19 Given tetanus/diphtheria/pertussis, acel(Tdap) 06/22/11 Recorde d pneumococcal 23-valent vaccine 01/03/10 Recorded Hepatitis B Vaccine (old term) 01/03/10 Recorded Hepatitis B Vaccine (old term) 03/19/08 Recorded Hepatitis B Vaccine (old term) 01/16/08 Recorded tetanus-diphtheria toxoids (Td) 05/20/07 Recorded 1Result Comment: FLU [facility] [id number] Medications amitriptyline 25 mg oral tablet 50 mg, 2, tablet, By Mouth, Daily at bedtime, 2 tab at bedtime. print in salvadorean please, # 60 tablet, Refills 7, Tot. Refills 7, Maintenance, 04/14/20 13:04:00 EST, Route to Pharmacy Electronically, [facility], 167, cm, 03/17/20 7... Start Date: 04/14/20 Stop Date: 12/10/20 Status: OrderedGas-X Extra Strength 125 mg oral tablet, chewable See Instructions, 1 tablet Chew 4 times a day, # 90 tablet, 1 Refills, Maintenance, 08/18/18 9:53:36EDT, Chew Tablet Start Date: 08/18/18 Status: OrderedJardiance 10 mg oral tablet 1 tablet = 10 mg, By Mouth, Daily in AM, # 30 tablet, 4 Refills, Maintenance, 02/24/20 10:42:00 EST,Tablet, [facility], 167, cm, 12/25/19 10:26:00 EST, Height Start Date: 02/24/20 Stop Date: 07/23/20 Status: OrderedLantus Solostar Pen 100 units/mL subcutaneous solution = 45 units, Subcutaneous Injection, Daily at bedtime, rotate injection sites with evening meal, # 15mL, 3 Refills, Maintenance, 02/23/20 14:16:00 EST, Injection, [facility], dose increase, 167, cm, 12/25/19 10:26:00 EST, Height Start Date: 02/23/20 Stop Date: 06/22/20 Status: Orderedlisinopril 30 mg oral tablet 1 tablet = 30 mg, By Mouth, Daily, # 30 tablet, 2 Refills, Maintenance, 02/24/20 10:42:00 EST, Tablet, [facility], 167, cm, 12/25/19 10:26:00 EST, Height Start Date: 02/24/20 Stop Date: 05/24/20 Status: OrderedmetFORMIN 1000 mg oral tablet 1 tablet = 1,000 mg, By Mouth, 2 times a day, # 60 tablet, 2 Refills, Maintenance, 03/23/20 10:18:00EST, Tablet, [facility], 167, cm, 03/17/20 7:33:00 EST, Height Start Date: 03/23/20 Stop Date: 06/21/20 Status: Orderedomeprazole 20 mg oral delayed release tablet 1 tablet = 20 mg, By Mouth, Daily, # 30 tablet, 11 Refills, Maintenance, 09/03/19 21:29:00 EDT, [facility], 167, cm, 08/21/19 16:17:00 EDT, Height Start Date: 09/03/19 Stop Date: 08/28/20 Status: OrderedPen [place], 31 G x 5 mm BD Ultra Fine III See Instructions, # 100 each, Refills 5, Tot. Refills 5, Maintenance, Use to inject insulin everydayDx: Type 2 Diabetes Mellitus, 10/30/19 10:32:00 EDT, Supply, 167, cm, 10/15/19 12:43:00 EDT, Height Start Date: 10/30/19 Stop Date: 04/27/20 Status: OrderedProAir HFA 90 mcg/inh inhalation aerosol 1 puffs, Inhalation, 4 times a day, PRN Shortness of Breath, # 1 each, 0 Refills, Maintenance, 03/17/20 8:42:00 EST, Aerosol, [facility], Partial fill upon patient request if the prescription is for a schedule II opioid drug., 1 pu... Start Date: 03/17/20 Stop Date: 04/16/20 Status: Orderedsimvastatin 40 mg oral tablet 40 mg, 1, tablet, By Mouth, Daily at bedtime, # 90 tablet, Refills 0, Tot. Refills 0, Maintenance, 03/23/20 10:17:00 EST, Route to Pharmacy Electronically, [facility], 167, cm, 03/17/20 7:33:00 EST, Height Start Date: 03/23/20 Stop Date: 09/19/20 Status: OrderedTrulicity Pen 0.75 mg/0.5 mL subcutaneous solution = 0.75 mg, Intramuscular, Every week, # 4 each, 2 Refills, Maintenance, 02/15/20 12:22:00 EST, [facility], 167, cm, 12/25/19 10:26:00 EST, Height Start Date: 02/15/20 Stop Date: 05/15/20 Status: OrderedUlticare pen needles 4mm 32g Ulticare pen needles 4mm 32g, See Instructions, # 200 each, Refills 2, Tot. Refills 2, Maintenance, use daily to test blood sugars dx e11.6, 10/09/18 16:44:57 EDT, Compound Start Date: 10/09/18 Status: OrderedVitamin D3 2000 intl units oral capsule See Instructions, TAKE 1 CAPSULE BY MOUTH EVERYDAY AT NOON, # 30 capsule, 5 Refills, 03/15/20 7:53:00 EST, [facility], 167, cm, 03/03/20 12:52:00 EST, Height Start Date: 03/15/20 Status: Ordered Problem List Condition Effective Dates Status Health Status Informant Diabetes(Confirmed) Active Hypertension(Confirmed) Active Hypertriglyceridemia(Confirmed) Active Migraines(Confirmed) Active Uncontrolled type 2 diabetes Active mellitus(Confirmed) Social History Social History Type Response Smoking Status Never (less than 100 in life time) entered on: 06/12/18 Sex
--- OUTSIDE RECORDS SUMMARY | 2022-04-30 00:35 | XMS_ITS | Continuity of Care Document ---
:1960 Author Organization [facility] Address [address] [place] [address]- Care Team Providers Name Role Phone Justin MIMS, Ly Rivers Primary Care Physician [place] [facility] [place] 05[place]19 [facility] [address] [place] [id number]- [facility] Attending Physician: Trevon Walls Admitting Physician: [...] toxoids (Td) 05/20/07 Recorded 1Result Comment: FLU [facility] [id number] Medications amitriptyline 25 mg oral tablet 50 mg, 2, tablet, By Mouth, Daily at bedtime, 2 tab at bedtime. print in senegalese please, # 60 tablet, Refills 6, Tot. Refills 6, Maintenance, 04/21/19 10:06:00 EDT, Route to Pharmacy Electronically, [facility], 167, cm, 03/17... Start [...] tablet, 4 Refills, Maintenance, 04/30/19 16:56:00 EDT,Tablet, [facility], 167, cm, 04/30/19 8:51:00 EDT, Height Start Date: 04/30/19 Stop Date: 09/27/19 Status: OrderedLantus Solostar Pen 100 units/mL subcutaneous solution = 45 units, Subcutaneous Injection, Daily at bedtime, rotate injection sites with evening meal, # 15mL, 3 Refills, Maintenance, 05/12/19 14:23:00 EDT, Injection, [facility], dose increase, 167, cm, 05/12/19 13:30:00 EDT, Height Start Date: 05/12/19 Stop Date: 09/09/19 Status: Orderedlisinopril 30 mg oral tablet 1 tablet = 30 mg, By Mouth, Daily, # 30 tablet, 5 Refills, Maintenance, 05/04/19 9:58:00 EDT, Tablet, [facility], 167, cm, 04/30/19 8:51:00 EDT, Height Start Date: 05/04/19 Stop Date: 10/31/19 Status: OrderedmetFORMIN 1000 mg oral tablet 1 tablet = 1,000 mg, By Mouth, 2 times a day, # 60 tablet, 5 Refills, Maintenance, 03/09/19 14:35:00EST, Tablet, [facility] - , 167, cm, 11/18/18 14:43:00 [...] 03/09/19 14:28:00 EST, Route to Pharmacy Electronically, [facility] - , 167, cm,11/18/18 14:43:00 EDT, Height Start Date: 03/09/19 Stop Date: 09/05/19 Status: OrderedTrulicity Pen 1.5 mg/0.5 mL subcutaneous solution 0.5 mL = 1.5 mg, Subcutaneous Injection, Every week, rotate injection sites, # 2 mL, 11 Refills, Maintenance, 05/12/19 14:21:00 EDT, Solution, [facility], 167, cm, 05/12/19 13:30:00EDT, Height Start [...] 3 Refills, Maintenance, 03/09/19 11:00:00 EST, Capsule, [facility] - , 167, cm, 11/18/18 14:43:00 [...]
--- OUTSIDE RECORDS SUMMARY | 2022-04-30 00:35 | XMS_ITS | Continuity of Care Document ---
:1960 Author Organization [facility] Address [address] [place] [id number]- Care Team Providers Name Role Phone Justin MIMS, Ly Rivers Primary Care Physician [phone] [place] [facility] [place]21 [facility] [address] [place] [id number] Allergies, Adverse Reactions, Alerts No Known Allergies [...] toxoids (Td) 05/20/07 Recorded 1Result Comment: [place] [facility] [place] [id number] Medications amitriptyline 25 mg oral tablet 2, tablet, By Mouth, Daily at bedtime, # 60 tablet, Refills 7, Route to Pharmacy Electronically, [facility], 167, cm, 10/25/20 16:32:00 EDT, Height Start Date: 11/29/20 Status: Orderedcetirizine 10 mg oral tablet 1 tablet = 10 mg, By Mouth, Daily, # 14 tablet, 0 Refills, Maintenance, 05/26/20 8:18:00 EDT, Tablet, [facility], Faroese instructions, 167, cm, 04/19/20 9:56:00 EST, Height Start Date: 05/26/20 Stop Date: 06/09/20 Status: Ordereddulaglutide 1.5 mg/0.5 mL subcutaneous solution 0.5 mL = 1.5 mg, Subcutaneous Injection, Every week, # 2.5 mL, 7 Refills, Maintenance, 06/08/21 11:27:00 EDT, Solution, [facility], Partial fill upon patient request if the prescription is for a schedule II opioid drug., 167, cm, 0... Start Date: 06/08/21 Stop Date: 02/03/22 Status: OrderedFreestyle lite glucometer Freestyle lite glucometer, [...] 0 Refills, Maintenance, 08/23/20 11:33:00 EDT, Tablet, [facility], Partial fill upon patient request if the prescription is for a schedule II opioid drug., 16... Start Date: 08/23/20 Stop Date: 09/22/20 Status: OrderedJardiance 25 mg oral tablet 1 tablet = 25 mg, By Mouth, Daily in AM, # 30 tablet, 11 Refills, Maintenance, 10/25/20 16:03:00 EDT, Tablet, [facility], Partial fill upon patient request if the prescription is for a schedule II opioid drug., 167, cm, 10/25/20 15... Start Date: 10/25/20 Stop Date: 10/20/21 Status: OrderedLantus Solostar Pen 100 units/mL subcutaneous solution See Instructions, INJECT 50 UNITS SUBCUTANEOUSLY EVERY EVENING WITH DINNER. ROTATE INJECTION SITES.,# 15 mL, 5 Refills, 06/08/21 11:27:00 EDT, [facility], 167, cm, 05/17/21 15:37:00 EDT, Height Start Date: 06/08/21 Status: Orderedlisinopril 30 mg oral tablet See Instructions, TAKE 1 TABLET BY MOUTH EVERYDAY AT NOON, # 30 tablet, 2 Refills, [facility], 167, cm, 05/17/21 15:37:00 EDT, Height Start Date: 06/08/21 Status: OrderedmetFORMIN 1000 mg oral tablet See Instructions, TAKE 1 TABLET BY MOUTH TWICE DAILY IN THE MORNING AND AT BEDTIME, # 180 tablet, 1 Refills, 06/08/21 11:58:00 EDT, [facility], 167, cm, 05/17/21 15:37:00 EDT, Height Start Date: 06/08/21 Status: Orderedomeprazole 20 mg oral delayed release tablet 1 tablet = 20 mg, By Mouth, Daily, # 30 tablet, 11 Refills, Maintenance, 08/17/20 13:14:00 EDT, [facility], 167, cm, 06/01/20 12:40:00 EDT, Height Start Date: 08/17/20 Stop Date: 08/12/21 Status: OrderedPen [place], 31 G x 5 mm BD Ultra [...] 0 Refills, Maintenance, 03/17/20 8:42:00 EST, Aerosol, [facility], Partial fill upon patient request if the prescription is for a schedule II opioid drug., 1 pu... Start Date: 03/17/20 Stop Date: 04/16/20 Status: Orderedsimvastatin 40 mg oral tablet 1, tablet, By Mouth, Daily at bedtime, # 90 tablet, Refills 1, Route to Pharmacy Electronically, [facility], 167, cm, 05/17/21 15:37:00 EDT, [...] AT NOON, # 30 capsule, 5 Refills, [facility], 167, cm, 02/24/21 11:47:00 EST, Height Start Date: 03/05/21 Status: Ordered Problem List Condition Effective Dates Status Health Status Informant Hypertension(Confirmed) Active Hypertriglyceridemia(Confirmed) Active Migraines(Confirmed) Active Uncontrolled type 2 diabetes Active mellitus(Confirmed) Social History Social History Type Response Smoking Status Never (less than 100 in life time) entered on: 06/12/18 Sex
--- OUTSIDE RECORDS SUMMARY | 2022-04-30 00:35 | XMS_ITS | Continuity of Care Document ---
:1960 Author Organization [facility] Address [address] [place] [phone]- Care Team Providers Name Role Phone Justin MIMS, Ly Rivers Primary Care Physician [phone] [place] [id number] Date(s): 01/19/19 - 01/29/19 [facility] [address] [place] [phone]- [facility] Attending Physician: Trevon Walls Admitting Physician: Admtr, Ta8 Referring Physician: Admtr, Ar8 Allergies, Adverse Reactions, Alerts Substance Reaction Severity Status NKA Active Immunizations Given and Recorded Vaccine Date Status Refusal Reason tetanus/diphtheria/pertussis, acel(Tdap) 06/22/11 Recorde d Hepatitis B Vaccine (old term) 01/03/10 Recorded Hepatitis B Vaccine (old term) 03/19/08 Recorded Hepatitis B Vaccine (old term) 01/16/08 Recorded pneumococcal 23-valent vaccine 01/03/10 Recorded tetanus-diphtheria toxoids (Td) 05/20/07 Recorded Medications amitriptyline 25 mg oral tablet 50 mg, 2, tablet, By Mouth, Daily at bedtime, week 1 take 1 tab, then increase to 2 tab at bedtime. print in slovak please, # 60 tablet, Refills 5, Tot. Refills 5, Maintenance, 10/17/18 10:29:25 EDT, Route to Pharmacy Electronically, [id number]... Start Date: 10/17/18 Stop Date: 04/15/19 Status: OrderedGas-X Extra Strength 125 mg oral tablet, chewable See Instructions, 1 tablet Chew 4 times a day, # 90 tablet, 1 Refills, Maintenance, 08/18/18 9:53:36EDT, Chew Tablet Start Date: 08/18/18 Status: OrderedLantus Solostar Pen 100 units/mL subcutaneous solution = 40 units, Subcutaneous Injection, Daily at bedtime, # 6 each, 3 Refills, Maintenance, 06/12/18 9:41:10 EDT, Injection Start Date: 06/12/18 Stop Date: 10/10/18 Status: Orderedlisinopril 30 mg oral tablet 1 tablet = 30 mg, By Mouth, Daily, # 30 tablet, 5 Refills, Maintenance, 12/01/18 11:02:47 EDT, Tablet Start Date: 12/01/18 Stop Date: 05/30/19 Status: OrderedmetFORMIN 1000 mg oral tablet 1 tablet = 1,000 mg, By Mouth, 2 times a day, # 60 tablet, 3 Refills, Maintenance, 10/09/18 13:43:22EDT, Tablet Start Date: 10/09/18 Stop Date: 02/06/19 Status: Orderedomeprazole 20 mg oral delayed release tablet 1 tablet = 20 mg, By Mouth, Daily, # 30 tablet, 11 Refills, Maintenance, 08/18/18 9:49:46 EDT Start Date: 08/18/18 Stop Date: 08/13/19 Status: Orderedsimvastatin 40 mg oral tablet 40 mg, 1, tablet, By Mouth, Daily at bedtime, # 30 tablet, Refills 3, Tot. Refills 3, Maintenance, 10/09/18 13:34:55 EDT, Route to Pharmacy Electronically, [id number], [facility] - Start Date: 10/09/18 Stop Date: 02/06/19 Status: OrderedTrulicity Pen 0.75 mg/0.5 mL subcutaneous solution 0.5 mL = 0.75 mg, Subcutaneous Injection, Every week, # 4 each, 3 Refills, Maintenance, 10/09/18 13:41:45 EDT, Solution Start Date: 10/09/18 Stop Date: 02/06/19 Status: OrderedUlticare pen needles 4mm 32g Ulticare pen needles 4mm 32g, See Instructions, # 200 each, Refills 2, Tot. Refills 2, Maintenance, use daily to test blood sugars dx e11.6, 10/09/18 16:44:57 EDT, Compound Start Date: 10/09/18 Status: OrderedVitamin D3 2000 intl units oral capsule 1 capsule = 2,000 International_Units, By Mouth, Daily, # 30 capsule, 3 Refills, Maintenance, 10/09/18 13:37:33 EDT, Capsule Start Date: 10/09/18 Stop Date: 02/06/19 Status: OrderedVitamin D3 1999 intl units oral capsule 1 capsule = 2,000 International_Units, By Mouth, Daily, # 30 capsule, 3 Refills, Maintenance, 06/12/18 9:41:51 EDT, Capsule Start Date: 06/12/18 Stop Date: 10/10/18 Status: Ordered Problem List Condition Effective Dates Status Health Status Informant Diabetes(Confirmed) Active Hypertension(Confirmed) Active Migraines(Confirmed) Active Social History Social History Type Response Smoking Status Never (less than 100 in life time) entered on: 06/12/18 Sex
--- OUTSIDE RECORDS SUMMARY | 2022-04-30 00:35 | XMS_ITS | Continuity of Care Document ---
:1960 Author Organization [facility] Address [address] [place] [address]- Care Team Providers Name Role Phone Justin MIMS, Ly Rivers Primary Care Physician Encounter [facility] [place] Date(s): 06/01/20 - 06/08/20 [facility] [address] [place] [phone]- Encounter Diagnosis COVID-19 (Discharge Diagnosis) - 06/01/20 Attending Physician: Ly Anderson NP Allergies, Adverse [...] toxoids (Td) 05/20/07 Recorded 1Result Comment: [facility] [id number] Medications amitriptyline 25 mg oral tablet 50 mg, 2, tablet, By Mouth, Daily at bedtime, 2 tab at bedtime. print in bengali please, # 60 tablet, Refills 7, Tot. Refills 7, Maintenance, 04/14/20 13:04:00 EST, Route to Pharmacy Electronically, [facility], 167, cm, 03/17/20 7... Start Date: 04/14/20 Stop Date: 12/10/20 Status: Orderedcetirizine 10 mg oral tablet 1 tablet = 10 mg, By Mouth, Daily, # 14 tablet, 0 Refills, Maintenance, 05/26/20 8:18:00 EDT, Tablet, [facility], Sinhala instructions, 167, cm, 04/19/20 9:56:00 EST, Height Start Date: 05/26/20 Stop Date: 06/09/20 Status: OrderedGas-X Extra Strength 125 mg oral tablet, chewable See Instructions, 1 tablet Chew 4 times a day, # 90 tablet, 1 Refills, Maintenance, 08/18/18 9:53:36EDT, Chew Tablet Start Date: 08/18/18 Status: OrderedJardiance 10 mg oral tablet 1 tablet = 10 mg, By Mouth, Daily in AM, # 30 tablet, 4 Refills, Maintenance, 02/24/20 10:42:00 EST,Tablet, [facility], 167, cm, 12/25/19 10:26:00 EST, Height Start Date: 02/24/20 Stop Date: 07/23/20 Status: OrderedLantus Solostar Pen 100 units/mL subcutaneous solution = 45 units, Subcutaneous Injection, Daily at bedtime, rotate injection sites with evening meal, # 15mL, 3 Refills, Maintenance, 02/23/20 14:16:00 EST, Injection, [facility], dose increase, 167, cm, 12/25/19 10:26:00 EST, Height Start Date: 02/23/20 Stop Date: 06/22/20 Status: Orderedlisinopril 30 mg oral tablet 1 tablet = 30 mg, By Mouth, Daily, # 30 tablet, 5 Refills, Maintenance, 05/24/20 10:42:00 EDT, Tablet, [facility], 167, cm, 04/19/20 9:56:00 EST, Height Start Date: 05/24/20 Stop Date: 11/20/20 Status: OrderedmetFORMIN 1000 mg oral tablet 1 tablet = 1,000 mg, By Mouth, 2 times a day, # 60 tablet, 2 Refills, Maintenance, 03/23/20 10:18:00EST, Tablet, [facility], 167, cm, 03/17/20 7:33:00 EST, Height Start Date: 03/23/20 Stop Date: 06/21/20 Status: Orderedomeprazole 20 mg oral delayed release tablet 1 tablet = 20 mg, By Mouth, Daily, # 30 tablet, 11 Refills, Maintenance, 09/03/19 21:29:00 EDT, [facility], 167, cm, 08/21/19 16:17:00 EDT, Height Start Date: 09/03/19 Stop Date: 08/28/20 Status: OrderedPen [place], 31 G x 5 mm BD Ultra [...] 0 Refills, Maintenance, 03/17/20 8:42:00 EST, Aerosol, [facility], Partial fill upon patient request if the prescription is for a schedule II opioid drug., 1 pu... Start Date: 03/17/20 Stop Date: 04/16/20 Status: Orderedsimvastatin 40 mg oral tablet 40 mg, 1, tablet, By Mouth, Daily at bedtime, # 90 tablet, Refills 0, Tot. Refills 0, Maintenance, 03/23/20 10:17:00 EST, Route to Pharmacy Electronically, [facility], 167, cm, 03/17/20 7:33:00 EST, Height Start Date: 03/23/20 Stop Date: 09/19/20 Status: OrderedTrulicity Pen 0.75 mg/0.5 mL subcutaneous solution = 0.75 mg, Intramuscular, Every week, # 2 mL, 5 Refills, Maintenance, 05/15/20 12:22:00 EDT, [facility], 167, cm, 04/19/20 9:56:00 EST, Height Start Date: 05/15/20 Stop Date: 11/11/20 Status: OrderedUlticare pen needles 4mm 32g Ulticare pen needles 4mm 32g, See Instructions, # 200 each, Refills 2, Tot. Refills 2, Maintenance, use daily to test blood sugars dx e11.6, 10/09/18 16:44:57 EDT, Compound Start Date: 10/09/18 Status: OrderedVitamin D3 2000 intl units oral capsule See Instructions, TAKE 1 CAPSULE BY MOUTH EVERYDAY AT NOON, # 30 capsule, 5 Refills, 03/15/20 7:53:00 EST, [facility], 167, cm, 03/03/20 12:52:00 EST, Height Start Date: 03/15/20 Status: Ordered Problem List Condition Effective Dates Status Health Status Informant Diabetes(Confirmed) Active Hypertension(Confirmed) Active Hypertriglyceridemia(Confirmed) Active Migraines(Confirmed) Active Uncontrolled type 2 diabetes Active mellitus(Confirmed) Diagnosis Diagnosis Type Effective Dates Health Status Clinical Serv ice Informant COVID-19 Discharge 06/01/20 Diagnosis Vital Signs Most recent to oldest [Reference Range]: 1 Height 167 cm (06/01/20 12:40 PM) Social History Social History Type Response Smoking Status Never (less than 100 in life time) entered on: 06/12/18 Sex
--- OUTSIDE RECORDS SUMMARY | 2022-04-30 00:35 | XMS_ITS | Continuity of Care Document ---
:1960 Author Organization [facility] Address [address] [place] [address]- Care Team Providers Name Role Phone Justin MIMS, Ly Rivers Primary Care Physician Encounter [facility] [place] Date(s): 11/19/19 - 12/19/19 [facility] [address] [place] [id number] Allergies, Adverse Reactions, Alerts Substance Reaction Severity [...] toxoids (Td) 05/20/07 Recorded 1Result Comment: FLU [facility] [id number] Medications amitriptyline 25 mg oral tablet 50 mg, 2, tablet, By Mouth, Daily at bedtime, 2 tab at bedtime. print in anguillan please, # 60 tablet, Refills 7, Tot. Refills 7, Maintenance, 10/15/19 13:03:00 EDT, Route to Pharmacy Electronically, [facility], 167, cm, 10/15/19 1... Start Date: 10/15/19 Stop Date: 06/11/20 Status: OrderedGas-X Extra Strength 125 mg oral tablet, chewable See Instructions, 1 tablet Chew 4 times a day, # 90 tablet, 1 Refills, Maintenance, 08/18/18 9:53:36EDT, Chew Tablet Start Date: 08/18/18 Status: OrderedJardiance 10 mg oral tablet 1 tablet = 10 mg, By Mouth, Daily in AM, # 30 tablet, 4 Refills, Maintenance, 09/23/19 11:28:00 EDT,Tablet, [facility], 167, cm, 08/21/19 16:17:00 EDT, Height Start Date: 09/23/19 Stop Date: 02/20/20 Status: OrderedLantus Solostar Pen 100 units/mL subcutaneous solution = 45 units, Subcutaneous Injection, Daily at bedtime, rotate injection sites with evening meal, # 15mL, 3 Refills, Maintenance, 09/25/19 8:59:00 EDT, Injection, [facility], dose increase, 167, cm, 08/21/19 16:17:00 EDT, Height Start Date: 09/25/19 Stop Date: 01/23/20 Status: Orderedlisinopril 30 mg oral tablet 1 tablet = 30 mg, By Mouth, Daily, # 30 tablet, 2 Refills, Maintenance, 12/01/19 15:23:00 EDT, Tablet, [facility], 167, cm, 11/23/19 14:14:00 EDT, Height Start Date: 12/01/19 Stop Date: 02/29/20 Status: OrderedmetFORMIN 1000 mg oral tablet 1 tablet = 1,000 mg, By Mouth, 2 times a day, # 60 tablet, 5 Refills, Maintenance, 10/02/19 13:18:00EDT, Tablet, [facility], 167, cm, 08/21/19 16:17:00 EDT, Height Start Date: 10/02/19 Stop Date: 03/30/20 Status: Orderednaproxen 500 mg oral tablet 1 tablet = 500 mg, By Mouth, 2 times a day, for 30 days, # 60 tablet, 0 Refills, Acute 12/23/19 14:07:00 EST, 11/23/19 14:07:00 EDT, [facility], 167, cm, 11/23/19 13:51:00 EDT, Height Start Date: 11/23/19 Stop Date: 12/23/19 Status: Orderedomeprazole 20 mg oral delayed release tablet 1 tablet = 20 mg, By Mouth, Daily, # 30 tablet, 11 Refills, Maintenance, 09/03/19 21:29:00 EDT, [facility], 167, cm, 08/21/19 16:17:00 EDT, Height Start Date: 09/03/19 Stop Date: 08/28/20 Status: OrderedPen [place], 31 G x 5 mm BD Ultra Fine III See Instructions, # 100 each, Refills 5, Tot. Refills 5, Maintenance, Use to inject insulin everydayDx: Type 2 Diabetes Mellitus, 10/30/19 10:32:00 EDT, Supply, 167, cm, 10/15/19 12:43:00 EDT, Height Start Date: 10/30/19 Stop Date: 04/27/20 Status: Orderedsimvastatin 40 mg oral tablet 40 mg, 1, tablet, By Mouth, Daily at bedtime, # 30 tablet, Refills 5, Tot. Refills 5, Maintenance, 09/29/19 14:25:00 EDT, Route to Pharmacy Electronically, [facility], 167, cm, 08/21/19 16:17:00 EDT, Height Start Date: 09/29/19 Stop Date: 03/27/20 Status: OrderedTrulicity Pen 0.75 mg/0.5 mL subcutaneous solution = 0.75 mg, Intramuscular, Every week, # 4 each, 3 Refills, Maintenance, 10/13/19 17:07:00 EDT, [facility], 167, cm, 10/13/19 14:02:00 EDT, Height Start Date: 10/13/19 Stop Date: 02/10/20 Status: OrderedUlticare pen needles 4mm 32g Ulticare pen needles 4mm 32g, See Instructions, # 200 each, Refills 2, Tot. Refills 2, Maintenance, use daily to test blood sugars dx e11.6, 10/09/18 16:44:57 EDT, Compound Start Date: 10/09/18 Status: OrderedVitamin D3 2000 intl units oral capsule See Instructions, TAKE 1 CAPSULE BY MOUTH EVERYDAY AT NOON, # 30 capsule, 3 Refills, Maintenance, [facility], 167, cm, 10/15/19 12:43:00 EDT, Height Start Date: 11/19/19 Status: Ordered Problem List Condition Effective Dates Status Health Status Informant Diabetes(Confirmed) Active Hypertension(Confirmed) Active Hypertriglyceridemia(Confirmed) Active Migraines(Confirmed) Active Uncontrolled type 2 diabetes Active mellitus(Confirmed) Social History Social History Type Response Smoking Status Never (less than 100 in life time) entered on: 06/12/18 Sex
--- OUTSIDE RECORDS SUMMARY | 2022-04-30 00:35 | XMS_ITS | Continuity of Care Document ---
:1960 Author Organization [facility] Address [address] [place] [address], [address] Floor, [address] [place] [address]- Care Team Providers Name Role Phone Justin MIMS, Ly Rivers Primary Care Physician Encounter [facility] [place] R [id number] Date(s): 01/20/19 - 01/30/19 [facility] [address] [place], [address], [address] [place] [address]- [facility] Attending Physician: Trevon Walls Admitting Physician: AdmTrevon britton Referring Physician: AdmtrTrevon Allergies, Adverse Reactions, Alerts Substance Reaction Severity [...] to 2 tab at bedtime. print in turkmen please, # 60 tablet, Refills 5, Tot. Refills 5, Maintenance, 10/17/18 10:29:25 EDT, Route to Pharmacy Electronically, [id number]... Start Date: 10/17/18 Stop Date: 04/15/19 Status: [...] 10/09/18 13:34:55 EDT, Route to Pharmacy Electronically, [id number], [facility] - Start Date: 10/09/18 Stop Date: [...] 10/09/18 Stop Date: 02/06/19 Status: OrderedVitamin D3 2000 intl units oral [...]
--- OUTSIDE RECORDS SUMMARY | 2022-04-30 00:35 | XMS_ITS | Continuity of Care Document ---
:1960 Author Organization [facility] Address [address] [place] [address]- Care Team Providers Name Role Phone Justin MIMS, Ly Rivers Primary Care Physician Encounter [facility] [place] Date(s): 01/13/20 - 02/10/[address] [address] Discharge Disposition: A-D/C Home Attending Physician: Ly [...] (Td) 05/20/07 Recorded 1Result Comment: FLU [facility] [id number] Medications amitriptyline 25 mg oral tablet 50 mg, 2, tablet, By Mouth, Daily at bedtime, 2 tab at bedtime. print in ethiopian please, # 60 tablet, Refills 7, Tot. Refills 7, Maintenance, 10/15/19 13:03:00 EDT, Route to Pharmacy Electronically, [facility], 167, cm, 10/15/19 1... Start Date: [...] tablet, 4 Refills, Maintenance, 09/23/19 11:28:00 EDT,Tablet, [facility], 167, cm, 08/21/19 16:17:00 EDT, Height Start Date: 09/23/19 Stop Date: 02/20/20 Status: OrderedLantus Solostar Pen 100 units/mL subcutaneous solution = 45 units, Subcutaneous Injection, Daily at bedtime, rotate injection sites with evening meal, # 15mL, 3 Refills, Maintenance, 09/25/19 8:59:00 EDT, Injection, [facility], dose increase, 167, cm, 08/21/19 16:17:00 EDT, Height Start Date: 09/25/19 Stop Date: 01/23/20 Status: Orderedlisinopril 30 mg oral tablet 1 tablet = 30 mg, By Mouth, Daily, # 30 tablet, 2 Refills, Maintenance, 12/01/19 15:23:00 EDT, Tablet, [facility], 167, cm, 11/23/19 14:14:00 EDT, Height Start Date: 12/01/19 Stop Date: 02/29/20 Status: OrderedmetFORMIN 1000 mg oral tablet 1 tablet = 1,000 mg, By Mouth, 2 times a day, # 60 tablet, 5 Refills, Maintenance, 10/02/19 13:18:00EDT, Tablet, [facility], 167, cm, 08/21/19 16:17:00 EDT, Height Start Date: 10/02/19 Stop Date: 03/30/20 Status: Orderedomeprazole 20 mg oral delayed release tablet 1 tablet = 20 mg, By Mouth, Daily, # 30 tablet, 11 Refills, Maintenance, 09/03/19 21:29:00 EDT, [facility], 167, cm, 08/21/19 16:17:00 EDT, Height Start Date: 09/03/19 Stop Date: 08/28/20 Status: OrderedPen [place], 31 G x 5 mm BD Ultra [...] 09/29/19 14:25:00 EDT, Route to Pharmacy Electronically, [facility], 167, cm, 08/21/19 16:17:00 EDT, Height Start Date: 09/29/19 Stop Date: 03/27/20 Status: OrderedTrulicity Pen 0.75 mg/0.5 mL subcutaneous solution = 0.75 mg, Intramuscular, Every week, # 4 each, 3 Refills, Maintenance, 10/13/19 17:07:00 EDT, [facility], 167, cm, 10/13/19 14:02:00 EDT, Height [...] NOON, # 30 capsule, 3 Refills, Maintenance, [facility], 167, cm, 10/15/19 12:43:00 EDT, Height Start Date: 11/19/19 Status: Ordered Problem List Condition Effective Dates Status Health Status Informant Diabetes(Confirmed) Active Hypertension(Confirmed) Active Hypertriglyceridemia(Confirmed) Active Migraines(Confirmed) Active Uncontrolled type 2 diabetes Active mellitus(Confirmed) Social History Social History Type Response Smoking Status Never (less than 100 in life time) entered on: 06/12/18 Sex
--- OUTSIDE RECORDS SUMMARY | 2022-04-30 00:35 | XMS_ITS | Continuity of Care Document ---
:1960 Author Organization [facility] Address [address] [place] [address]- Care Team Providers Name Role Phone Justin MIMS, Ly Rivers Primary Care Physician Encounter [facility] [place] Date(s): 03/13/21 - 04/12/21 [facility] [address] [place] [address]- Attending Physician: Trevon Walls Admitting Physician: AdmtrTrevon Referring Physician: trTrevon Allergies, Adverse Reactions, Alerts No Known Allergies [...] toxoids (Td) 05/20/07 Recorded 1Result Comment: FLU [facility] [id number] Medications amitriptyline 25 mg oral tablet 2, tablet, By Mouth, Daily at bedtime, # 60 tablet, Refills 7, Route to Pharmacy Electronically, [facility], 167, cm, 10/25/20 16:32:00 EDT, Height Start Date: 11/29/20 Status: Orderedcetirizine 10 mg oral tablet 1 tablet = 10 mg, By Mouth, Daily, # 14 tablet, 0 Refills, Maintenance, 05/26/20 8:18:00 EDT, Tablet, [facility], Cambodian instructions, 167, cm, 04/19/20 9:56:00 EST, Height [...] 0 Refills, Maintenance, 08/23/20 11:33:00 EDT, Tablet, [facility], Partial fill upon patient request if the prescription is for a schedule II opioid drug., 16... Start Date: 08/23/20 Stop Date: 09/22/20 Status: OrderedJardiance 25 mg oral tablet 1 tablet = 25 mg, By Mouth, Daily in AM, # 30 tablet, 11 Refills, Maintenance, 10/25/20 16:03:00 EDT, Tablet, [facility], Partial fill upon patient request if the prescription is for a schedule II opioid drug., 167, cm, 10/25/20 15... Start Date: 10/25/20 Stop Date: 10/20/21 Status: OrderedLantus Solostar Pen 100 units/mL subcutaneous solution See Instructions, INJECT 45 UNITS SUBCUTANEOUSLY EVERY EVENING WITH DINNER. ROTATE INJECTION SITES.,# 15 mL, 5 Refills, [facility], 167, cm, 02/01/21 13:19:00 EST, Height Start Date: 02/11/21 Status: Orderedlisinopril 30 mg oral tablet See Instructions, TAKE 1 TABLET BY MOUTH EVERYDAY AT NOON, # 30 tablet, 3 Refills, [facility], 167, cm, 02/01/21 13:19:00 EST, Height Start Date: 02/09/21 Status: OrderedmetFORMIN 1000 mg oral tablet See Instructions, TAKE 1 TABLET BY MOUTH TWICE DAILY IN THE MORNING AND AT BEDTIME, # 60 tablet, 5 Refills, [facility], 167, cm, 10/25/20 16:32:00 EDT, Height Start Date: 11/29/20 Status: Orderednaproxen 500 mg oral tablet 1 tablet = 500 mg, By Mouth, 2 times a day, for 30 days, # 60 tablet, 0 Refills, Acute 04/15/21 15:10:00 EST, 03/16/21 15:10:00 EST, Tablet, [facility], Partial fill upon patient request if the prescription is for a schedule II opi... Start Date: 03/16/21 Stop Date: 04/15/21 Status: Orderedomeprazole 20 mg oral delayed release tablet 1 tablet = 20 mg, By Mouth, Daily, # 30 tablet, 11 Refills, Maintenance, 08/17/20 13:14:00 EDT, [facility], 167, cm, 06/01/20 12:40:00 EDT, Height Start Date: 08/17/20 Stop Date: 08/12/21 Status: OrderedPen [place], 31 G x 5 mm BD Ultra [...] 0 Refills, Maintenance, 03/17/20 8:42:00 EST, Aerosol, [facility], Partial fill upon patient request if the prescription is for a schedule II opioid drug., 1 pu... Start Date: 03/17/20 Stop Date: 04/16/20 Status: Orderedsimvastatin 40 mg oral tablet 1, tablet, By Mouth, Daily at bedtime, # 90 tablet, Refills 1, Route to Pharmacy Electronically, [facility], 167, cm, 10/25/20 16:32:00 EDT, Height Start Date: 12/28/20 Status: OrderedTrulicity Pen 0.75 mg/0.5 mL subcutaneous solution = 0.75 mg, Intramuscular, Every week, # 2 mL, 5 Refills, Maintenance, 11/11/20 11:26:00 EDT, [facility], 167, cm, 10/25/20 16:32:00 EDT, Height Start Date: 11/11/20 Stop Date: 05/10/21 Status: OrderedUlticare pen needles 4mm 32g Ulticare pen needles 4mm 32g, See Instructions, # 200 each, Refills 2, Tot. Refills 2, Maintenance, use daily to test blood sugars dx e11.6, 10/09/18 16:44:57 EDT, Compound Start Date: 10/09/18 Status: OrderedVitamin D3 2000 intl units oral capsule See Instructions, TAKE 1 CAPSULE BY MOUTH EVERYDAY AT NOON, # 30 capsule, 5 Refills, [facility], 167, cm, 02/24/21 11:47:00 EST, Height Start Date: 03/05/21 Status: Ordered Problem List Condition Effective Dates Status Health Status Informant Hypertension(Confirmed) Active Hypertriglyceridemia(Confirmed) Active Migraines(Confirmed) Active Uncontrolled type 2 diabetes Active mellitus(Confirmed) Social History Social History Type Response Smoking Status Never (less than 100 in life time) entered on: 06/12/18 Sex
--- OUTSIDE RECORDS SUMMARY | 2022-04-30 00:35 | XMS_ITS | Continuity of Care Document ---
:1960 Author Organization [facility] Address [address] [place] [address]- Care Team Providers Name Role Phone Justin MIMS, Ly Rivers Primary Care Physician Encounter [facility] [place] Date(s): 10/13/19 - 11/12/19 [facility] [address] [place] [address] [facility] Allergies, Adverse Reactions, Alerts Substance Reaction Severity [...] toxoids (Td) 05/20/07 Recorded 1Result Comment: FLU [facility] [id number] Medications amitriptyline 25 mg oral tablet 50 mg, 2, tablet, By Mouth, Daily at bedtime, 2 tab at bedtime. print in egyptian please, # 60 tablet, Refills 7, Tot. Refills 7, Maintenance, 10/15/19 13:03:00 EDT, Route to Pharmacy Electronically, [facility], 167, cm, 10/15/19 1... Start Date: [...] tablet, 4 Refills, Maintenance, 09/23/19 11:28:00 EDT,Tablet, [facility], 167, cm, 08/21/19 16:17:00 EDT, Height Start Date: 09/23/19 Stop Date: 02/20/20 Status: OrderedLantus Solostar Pen 100 units/mL subcutaneous solution = 45 units, Subcutaneous Injection, Daily at bedtime, rotate injection sites with evening meal, # 15mL, 3 Refills, Maintenance, 09/25/19 8:59:00 EDT, Injection, [facility], dose increase, 167, cm, 08/21/19 16:17:00 EDT, Height Start Date: 09/25/19 Stop Date: 01/23/20 Status: Orderedlisinopril 30 mg oral tablet 1 tablet = 30 mg, By Mouth, Daily, # 30 tablet, 5 Refills, Maintenance, 05/04/19 9:58:00 EDT, Tablet, [facility], 167, cm, 04/30/19 8:51:00 EDT, Height Start Date: 05/04/19 Stop Date: 10/31/19 Status: OrderedmetFORMIN 1000 mg oral tablet 1 tablet = 1,000 mg, By Mouth, 2 times a day, # 60 tablet, 5 Refills, Maintenance, 10/02/19 13:18:00EDT, Tablet, [facility], 167, cm, 08/21/19 16:17:00 EDT, Height Start Date: 10/02/19 Stop Date: 03/30/20 Status: Orderedomeprazole 20 mg oral delayed release tablet 1 tablet = 20 mg, By Mouth, Daily, # 30 tablet, 11 Refills, Maintenance, 09/03/19 21:29:00 EDT, [facility], 167, cm, 08/21/19 16:17:00 EDT, Height Start Date: 09/03/19 Stop Date: 08/28/20 Status: OrderedPen [place], 31 G x 5 mm BD Ultra [...] 09/29/19 14:25:00 EDT, Route to Pharmacy Electronically, [facility], 167, cm, 08/21/19 16:17:00 EDT, Height Start Date: 09/29/19 Stop Date: 03/27/20 Status: OrderedTrulicity Pen 0.75 mg/0.5 mL subcutaneous solution = 0.75 mg, Intramuscular, Every week, # 4 each, 3 Refills, Maintenance, 10/13/19 17:07:00 EDT, [facility], 167, cm, 10/13/19 14:02:00 EDT, Height [...] 3 Refills, Maintenance, 07/01/19 14:51:00 EDT, Capsule, [facility], 167, cm, 05/12/19 13:30:00 EDT, Height [...]
--- OUTSIDE RECORDS SUMMARY | 2022-04-30 00:35 | XMS_ITS | Continuity of Care Document ---
:1960 Author Organization [facility] Address [address] [place] [phone]- Care Team Providers Name Role Phone Justin MIMS, Ly Rivers Primary Care Physician [phone] Encounter [facility] [place] Date(s): 02/10/20 - 03/11/[address] [address] Attending Physician: Trevon Walls Admitting Physician: AdmtrTrevon [...] toxoids (Td) 05/20/07 Recorded 1Result Comment: FLU [facility] [id number] Medications amitriptyline 25 mg oral tablet 50 mg, 2, tablet, By Mouth, Daily at bedtime, 2 tab at bedtime. print in angolan please, # 60 tablet, Refills 7, Tot. Refills 7, Maintenance, 10/15/19 13:03:00 EDT, Route to Pharmacy Electronically, [facility], 167, cm, 10/15/19 1... Start [...] tablet, 4 Refills, Maintenance, 02/24/20 10:42:00 EST,Tablet, [facility], 167, cm, 12/25/19 10:26:00 EST, Height Start Date: 02/24/20 Stop Date: 07/23/20 Status: OrderedLantus Solostar Pen 100 units/mL subcutaneous solution = 45 units, Subcutaneous Injection, Daily at bedtime, rotate injection sites with evening meal, # 15mL, 3 Refills, Maintenance, 02/23/20 14:16:00 EST, Injection, [facility], dose increase, 167, cm, 12/25/19 10:26:00 EST, Height Start Date: 02/23/20 Stop Date: 06/22/20 Status: Orderedlisinopril 30 mg oral tablet 1 tablet = 30 mg, By Mouth, Daily, # 30 tablet, 2 Refills, Maintenance, 02/24/20 10:42:00 EST, Tablet, [facility], 167, cm, 12/25/19 10:26:00 EST, Height Start Date: 02/24/20 Stop Date: 05/24/20 Status: OrderedmetFORMIN 1000 mg oral tablet 1 tablet = 1,000 mg, By Mouth, 2 times a day, # 60 tablet, 5 Refills, Maintenance, 10/02/19 13:18:00EDT, Tablet, [facility], 167, cm, 08/21/19 16:17:00 EDT, Height Start Date: 10/02/19 Stop Date: 03/30/20 Status: Orderedomeprazole 20 mg oral delayed release tablet 1 tablet = 20 mg, By Mouth, Daily, # 30 tablet, 11 Refills, Maintenance, 09/03/19 21:29:00 EDT, [facility], 167, cm, 08/21/19 16:17:00 EDT, Height Start Date: 09/03/19 Stop Date: 08/28/20 Status: OrderedPen [place], 31 G x 5 mm BD Ultra [...] 09/29/19 14:25:00 EDT, Route to Pharmacy Electronically, [facility], 167, cm, 08/21/19 16:17:00 EDT, Height Start Date: 09/29/19 Stop Date: 03/27/20 Status: OrderedTrulicity Pen 0.75 mg/0.5 mL subcutaneous solution = 0.75 mg, Intramuscular, Every week, # 4 each, 2 Refills, Maintenance, 02/15/20 12:22:00 EST, [facility], 167, cm, 12/25/19 10:26:00 EST, Height [...] NOON, # 30 capsule, 3 Refills, Maintenance, [facility], 167, cm, 10/15/19 12:43:00 EDT, Height Start Date: 11/19/19 Status: Ordered Problem List Condition Effective Dates Status Health Status Informant Diabetes(Confirmed) Active Hypertension(Confirmed) Active Hypertriglyceridemia(Confirmed) Active Migraines(Confirmed) Active Uncontrolled type 2 diabetes Active mellitus(Confirmed) Social History Social History Type Response Smoking Status Never (less than 100 in life time) entered on: 06/12/18 Sex
--- OUTSIDE RECORDS SUMMARY | 2022-04-30 00:36 | XMS_ITS | Continuity of Care Document ---
:1960 Author Organization [facility] Address [address] [place] [address]- Care Team Providers Name Role Phone Ly Anderson NP Primary Care Physician Encounter [place] Date(s): 08/21/19 - 08/28/19 [facility] [address] [place] [address]- [facility] Attending Physician: Ly Anderson NP Allergies, Adverse [...] toxoids (Td) 05/20/07 Recorded 1Result Comment: FLU [facility] [id number] Medications amitriptyline 25 mg oral tablet 50 mg, 2, tablet, By Mouth, Daily at bedtime, 2 tab at bedtime. print in new zealander please, # 60 tablet, Refills 6, Tot. Refills 6, Maintenance, 04/21/19 10:06:00 EDT, Route to Pharmacy Electronically, [facility], 167, cm, 03/17... [...] tablet, 4 Refills, Maintenance, 04/30/19 16:56:00 EDT,Tablet, [facility], 167, cm, 04/30/19 8:51:00 EDT, Height Start Date: 04/30/19 Stop Date: 09/27/19 Status: OrderedLantus Solostar Pen 100 units/mL subcutaneous solution = 45 units, Subcutaneous Injection, Daily at bedtime, rotate injection sites with evening meal, # 15mL, 3 Refills, Maintenance, 05/12/19 14:23:00 EDT, Injection, [facility], dose increase, 167, cm, 05/12/19 13:30:00 EDT, Height Start Date: 05/12/19 Stop Date: 09/09/19 Status: Orderedlisinopril 30 mg oral tablet 1 tablet = 30 mg, By Mouth, Daily, # 30 tablet, 5 Refills, Maintenance, 05/04/19 9:58:00 EDT, Tablet, [facility], 167, cm, 04/30/19 8:51:00 EDT, Height Start Date: 05/04/19 Stop Date: 10/31/19 Status: OrderedmetFORMIN 1000 mg oral tablet 1 tablet = 1,000 mg, By Mouth, 2 times a day, # 60 tablet, 5 Refills, Maintenance, 03/09/19 14:35:00EST, Tablet, [facility], 167, cm, 11/18/18 [...] 03/09/19 14:28:00 EST, Route to Pharmacy Electronically, [facility] - , 167, cm,11/18/18 14:43:00 EDT, Height Start Date: 03/09/19 Stop Date: 09/05/19 Status: OrderedTrulicity Pen 0.75 mg/0.5 mL subcutaneous solution 0.5 mL = 0.75 mg, Subcutaneous Injection, Every week, for 30 days, # 4 each, 3 Refills, Hard Stop 12/24/19 10:14:00 EST, 08/26/19 10:14:00 EDT, Solution, [facility], 167, cm, 08/21/19 16:17:00 EDT, Height Start Date: 08/26/19 Stop Date: 12/24/19 Status: OrderedTrulicity Pen 1.5 mg/0.5 mL subcutaneous solution 0.5 mL = 1.5 mg, Subcutaneous Injection, Every week, rotate injection sites, # 2 mL, 11 Refills, Maintenance, 05/12/19 14:21:00 EDT, Solution, [facility], 167, cm, 05/12/19 13:30:00EDT, Height [...] 3 Refills, Maintenance, 07/01/19 14:51:00 EDT, Capsule, [facility], 167, cm, 05/12/19 13:30:00 EDT, Height Start Date: 07/01/19 Stop Date: 10/29/19 Status: Ordered Problem List Condition Effective Dates Status Health Status Informant Diabetes(Confirmed) Active Hypertension(Confirmed) Active Hypertriglyceridemia(Confirmed) Active Migraines(Confirmed) Active Uncontrolled type 2 diabetes Active mellitus(Confirmed) Vital Signs Most recent to oldest [Reference Range]: 1 2 Height 167 cm 167 cm (08/21/19 4:17 PM) (08/21/19 3:55 PM) Weight 82.2 kg (08/21/19 3:55 PM) Oxygen Saturation [94-100 %] 98 % (08/21/19 3:55 PM) Pulse Rate [55-90 bpm] 81 bpm (08/21/19 3:55 PM) Body Mass Index [18.5-24.99] 29.47 *H* (08/21/19 3:55 PM) Blood Pressure [90-138/55-84 mm Hg] 118/72 mm Hg 130/ 80 mm Hg (08/21/19 4:17 PM) (08/21/19 3:55 PM) Blood pressure sites Arm, left Arm, right (08/21/19 4:17 PM) (08/21/19 3:55 PM) Weight Obtained Via Standing scale (08/21/19 3:55 PM) Social History Social History Type Response Smoking Status Never (less than 100 in life time) entered on: 06/12/18 Sex
--- OUTSIDE RECORDS SUMMARY | 2022-04-30 00:36 | XMS_ITS | Continuity of Care Document ---
:1960 Author Organization [facility] p Address [address] [place] [address], [address] [place] [address]- Care Team Providers Name Role Phone Justin MIMS, Ly Rivers Primary Care Physician [phone] Encounter [facility] Date(s): 02/01/21 - 03/03/21 [facility] [address], [address] [place] [id number] Attending Physician: Trevon Walls Admitting Physician: Admtr, Trevon Referring Physician: Admtr, Ar8 Allergies, Adverse Reactions, Alerts No Known Allergies [...] (Td) 05/20/07 Recorded 1Result Comment: FLU [facility] [id number] Medications amitriptyline 25 mg oral tablet 2, tablet, By Mouth, Daily at bedtime, # 60 tablet, Refills 7, Route to Pharmacy Electronically, [facility], 167, cm, 10/25/20 16:32:00 EDT, Height Start Date: 11/29/20 Status: Orderedcetirizine 10 mg oral tablet 1 tablet = 10 mg, By Mouth, Daily, # 14 tablet, 0 Refills, Maintenance, 05/26/20 8:18:00 EDT, Tablet, [facility], Zambian instructions, 167, cm, 04/19/20 9:56:00 EST, Height [...] 0 Refills, Maintenance, 08/23/20 11:33:00 EDT, Tablet, [facility], Partial fill upon patient request if the prescription is for a schedule II opioid drug., 16... Start Date: 08/23/20 Stop Date: 09/22/20 Status: OrderedJardiance 25 mg oral tablet 1 tablet = 25 mg, By Mouth, Daily in AM, # 30 tablet, 11 Refills, Maintenance, 10/25/20 16:03:00 EDT, Tablet, [facility], Partial fill upon patient request if the prescription is for a schedule II opioid drug., 167, cm, 10/25/20 15... Start Date: 10/25/20 Stop Date: 10/20/21 Status: OrderedLantus Solostar Pen 100 units/mL subcutaneous solution See Instructions, INJECT 45 UNITS SUBCUTANEOUSLY EVERY EVENING WITH DINNER. ROTATE INJECTION SITES.,# 15 mL, 5 Refills, [facility], 167, cm, 02/01/21 13:19:00 EST, Height Start Date: 02/11/21 Status: Orderedlisinopril 30 mg oral tablet See Instructions, TAKE 1 TABLET BY MOUTH EVERYDAY AT NOON, # 30 tablet, 3 Refills, [facility], 167, cm, 02/01/21 13:19:00 EST, Height Start Date: 02/09/21 Status: OrderedmetFORMIN 1000 mg oral tablet See Instructions, TAKE 1 TABLET BY MOUTH TWICE DAILY IN THE MORNING AND AT BEDTIME, # 60 tablet, 5 Refills, [facility], 167, cm, 10/25/20 16:32:00 EDT, Height Start Date: 11/29/20 Status: Orderedomeprazole 20 mg oral delayed release tablet 1 tablet = 20 mg, By Mouth, Daily, # 30 tablet, 11 Refills, Maintenance, 08/17/20 13:14:00 EDT, [facility], 167, cm, 06/01/20 12:40:00 EDT, Height Start Date: 08/17/20 Stop Date: 08/12/21 Status: OrderedPen [place], 31 G x 5 mm BD Ultra [...] 0 Refills, Maintenance, 03/17/20 8:42:00 EST, Aerosol, [facility], Partial fill upon patient request if the prescription is for a schedule II opioid drug., 1 pu... Start Date: 03/17/20 Stop Date: 04/16/20 Status: Orderedsimvastatin 40 mg oral tablet 1, tablet, By Mouth, Daily at bedtime, # 90 tablet, Refills 1, Route to Pharmacy Electronically, [facility], 167, cm, 10/25/20 16:32:00 EDT, Height Start Date: 12/28/20 Status: OrderedTrulicity Pen 0.75 mg/0.5 mL subcutaneous solution = 0.75 mg, Intramuscular, Every week, # 2 mL, 5 Refills, Maintenance, 11/11/20 11:26:00 EDT, [facility], 167, cm, 10/25/20 16:32:00 EDT, Height [...] AT NOON, # 30 capsule, 5 Refills, 09/07/20 10:39:00 EDT, [facility], 167, cm, 08/23/20 11:40:00 EDT, Height Start Date: 09/07/20 Status: Ordered Problem List Condition Effective Dates Status Health Status Informant Hypertension(Confirmed) Active Hypertriglyceridemia(Confirmed) Active Migraines(Confirmed) Active Uncontrolled type 2 diabetes Active mellitus(Confirmed) Social History Social History Type Response Smoking Status Never (less than 100 in life time) entered on: 06/12/18 Sex
--- OUTSIDE RECORDS SUMMARY | 2022-04-30 00:36 | XMS_ITS | Continuity of Care Document ---
:1960 Author Organization [facility] Address [address] [place] [address]- Care Team Providers Name Role Phone Justin MIMS, Ly Rivers Primary Care Physician [phone] [id number] Date(s): 05/26/20 - 06/02/20 [facility] [address] [place] [address]- Attending Physician: Not on Staff, Attending MD Referring Physician: Ly Anderson NP Allergies, [...] toxoids (Td) 05/20/07 Recorded 1Result Comment: FLU [facility] [id number] Medications amitriptyline 25 mg oral tablet 50 mg, 2, tablet, By Mouth, Daily at bedtime, 2 tab at bedtime. print in lebanese please, # 60 tablet, Refills 7, Tot. Refills 7, Maintenance, 04/14/20 13:04:00 EST, Route to Pharmacy Electronically, [facility], 167, cm, 03/17/20 7... Start Date: 04/14/20 Stop Date: 12/10/20 Status: Orderedcetirizine 10 mg oral tablet 1 tablet = 10 mg, By Mouth, Daily, # 14 tablet, 0 Refills, Maintenance, 05/26/20 8:18:00 EDT, Tablet, [facility], Bengali instructions, 167, cm, 04/19/20 9:56:00 EST, Height [...] tablet, 4 Refills, Maintenance, 02/24/20 10:42:00 EST,Tablet, [facility], 167, cm, 12/25/19 10:26:00 EST, Height Start Date: 02/24/20 Stop Date: 07/23/20 Status: OrderedLantus Solostar Pen 100 units/mL subcutaneous solution = 45 units, Subcutaneous Injection, Daily at bedtime, rotate injection sites with evening meal, # 15mL, 3 Refills, Maintenance, 02/23/20 14:16:00 EST, Injection, [facility], dose increase, 167, cm, 12/25/19 10:26:00 EST, Height Start Date: 02/23/20 Stop Date: 06/22/20 Status: Orderedlisinopril 30 mg oral tablet 1 tablet = 30 mg, By Mouth, Daily, # 30 tablet, 5 Refills, Maintenance, 05/24/20 10:42:00 EDT, Tablet, [facility], 167, cm, 04/19/20 9:56:00 EST, Height Start Date: 05/24/20 Stop Date: 11/20/20 Status: OrderedmetFORMIN 1000 mg oral tablet 1 tablet = 1,000 mg, By Mouth, 2 times a day, # 60 tablet, 2 Refills, Maintenance, 03/23/20 10:18:00EST, Tablet, [facility], 167, cm, 03/17/20 7:33:00 EST, Height Start Date: 03/23/20 Stop Date: 06/21/20 Status: Orderedomeprazole 20 mg oral delayed release tablet 1 tablet = 20 mg, By Mouth, Daily, # 30 tablet, 11 Refills, Maintenance, 09/03/19 21:29:00 EDT, [facility], 167, cm, 08/21/19 16:17:00 EDT, Height Start Date: 09/03/19 Stop Date: 08/28/20 Status: OrderedPen [place], 31 G x 5 mm BD Ultra [...] 0 Refills, Maintenance, 03/17/20 8:42:00 EST, Aerosol, [facility], Partial fill upon patient request if the prescription is for a schedule II opioid drug., 1 pu... Start Date: 03/17/20 Stop Date: 04/16/20 Status: Orderedsimvastatin 40 mg oral tablet 40 mg, 1, tablet, By Mouth, Daily at bedtime, # 90 tablet, Refills 0, Tot. Refills 0, Maintenance, 03/23/20 10:17:00 EST, Route to Pharmacy Electronically, [facility], 167, cm, 03/17/20 7:33:00 EST, Height Start Date: 03/23/20 Stop Date: 09/19/20 Status: OrderedTrulicity Pen 0.75 mg/0.5 mL subcutaneous solution = 0.75 mg, Intramuscular, Every week, # 2 mL, 5 Refills, Maintenance, 05/15/20 12:22:00 EDT, [facility], 167, cm, 04/19/20 9:56:00 EST, Height Start Date: 05/15/20 Stop Date: 11/11/20 Status: OrderedUlticare pen needles 4mm 32g Ulticare pen needles 4mm 32g, See Instructions, # 200 each, Refills 2, Tot. Refills 2, Maintenance, use daily to test blood sugars dx e11.6, 08/29/19 16:44:57 EDT, Compound Start Date: 10/09/18 Status: OrderedVitamin D3 2000 intl units oral capsule See Instructions, TAKE 1 CAPSULE BY MOUTH EVERYDAY AT NOON, # 30 capsule, 5 Refills, 03/15/20 7:53:00 EST, [facility], 167, cm, 03/03/20 12:52:00 EST, Height Start Date: 03/15/20 Status: Ordered Problem List Condition Effective Dates Status Health Status Informant Diabetes(Confirmed) Active Hypertension(Confirmed) Active Hypertriglyceridemia(Confirmed) Active Migraines(Confirmed) Active Uncontrolled type 2 diabetes Active mellitus(Confirmed) Social History Social History Type Response Smoking Status Never (less than 100 in life time) entered on: 06/12/18 Sex
--- OUTSIDE RECORDS SUMMARY | 2022-04-30 00:36 | XMS_ITS | Continuity of Care Document ---
:1960 Author Organization [facility] Address [address] [place] [address]- Care Team Providers Name Role Phone Justin MIMS, Ly Rivers Primary Care Physician [phone] Encounter [facility] Date(s): 10/25/20 - 11/01/[address] [address]- Encounter Diagnosis Physical exam (Discharge Diagnosis) - 10/25/20 Diabetes (Discharge Diagnosis) - 10/25/20 Hypertension (Discharge Diagnosis) - 10/25/20 Hypertriglyceridemia (Discharge Diagnosis) - 10/25/20 Migraines (Discharge Diagnosis) - 10/25/20 Attending Physician: Ly Anderson NP Allergies, Adverse [...] toxoids (Td) 05/20/07 Recorded 1Result Comment: FLU [facility] [id number] Medications amitriptyline 25 mg oral tablet 50 mg, 2, tablet, By Mouth, Daily at bedtime, 2 tab at bedtime. print in maori please, # 60 tablet, Refills 7, Tot. Refills 7, Maintenance, 04/14/20 13:04:00 EST, Route to Pharmacy Electronically, [facility], 167, cm, 03/17/20 7... Start Date: 04/14/20 Stop Date: 12/10/20 Status: Orderedcetirizine 10 mg oral tablet 1 tablet = 10 mg, By Mouth, Daily, # 14 tablet, 0 Refills, Maintenance, 05/26/20 8:18:00 EDT, Tablet, [facility], Persian instructions, 167, cm, 04/19/20 9:56:00 EST, Height [...] 0 Refills, Maintenance, 08/23/20 11:33:00 EDT, Tablet, [facility], Partial fill upon patient request if the prescription is for a schedule II opioid drug., 16... Start Date: 08/23/20 Stop Date: 09/22/20 Status: OrderedJardiance 10 mg oral tablet 1 tablet, By Mouth, Daily in AM, # 30 tablet, 4 Refills, Maintenance, 07/21/20 8:45:00 EDT, [facility], 167, cm, 06/01/20 12:40:00 EDT, Height Start Date: 07/21/20 Status: OrderedJardiance 25 mg oral tablet 1 tablet = 25 mg, By Mouth, Daily in AM, # 30 tablet, 11 Refills, Maintenance, 10/25/20 16:03:00 EDT, Tablet, [facility], Partial fill upon patient request if the prescription is for a schedule II opioid drug., 167, cm, 10/25/20 15... Start Date: 10/25/20 Stop Date: 10/20/21 Status: OrderedLantus Solostar Pen 100 units/mL subcutaneous solution See Instructions, INJECT 45 UNITS EVERY EVENING WITH DINNER. ROTATE INJECTION SITES, # 15 mL, 3 Refills, Maintenance, [facility], 167, cm, 06/01/20 12:40:00 EDT, Height Start Date: 07/18/20 Status: Orderedlisinopril 30 mg oral tablet 1 tablet = 30 mg, By Mouth, Daily, # 30 tablet, 5 Refills, Maintenance, 05/24/20 10:42:00 EDT, Tablet, [facility], 167, cm, 04/19/20 9:56:00 EST, Height Start Date: 05/24/20 Stop Date: 11/20/20 Status: OrderedmetFORMIN 1000 mg oral tablet 1 tablet = 1,000 mg, By Mouth, 2 times a day, # 60 tablet, 5 Refills, Maintenance, 06/15/20 10:42:00EDT, Tablet, [facility], 167, cm, 06/01/20 12:40:00 EDT, Height Start Date: 06/15/20 Stop Date: 12/12/20 Status: Orderedomeprazole 20 mg oral delayed release tablet 1 tablet = 20 mg, By Mouth, Daily, # 30 tablet, 11 Refills, Maintenance, 08/17/20 13:14:00 EDT, [facility], 167, cm, 06/01/20 12:40:00 EDT, Height Start Date: 08/17/20 Stop Date: 08/12/21 Status: OrderedPen [place], 31 G x 5 mm BD Ultra [...] 0 Refills, Maintenance, 03/17/20 8:42:00 EST, Aerosol, [facility], Partial fill upon patient request if the prescription is for a schedule II opioid drug., 1 pu... Start Date: 03/17/20 Stop Date: 04/16/20 Status: Orderedsimvastatin 40 mg oral tablet 40 mg, 1, tablet, By Mouth, Daily at bedtime, # 90 tablet, Refills 1, Tot. Refills 1, Maintenance, 09/19/20 10:17:00 EDT, Route to Pharmacy Electronically, [facility], 167, cm, 06/01/20 12:40:00 EDT, Height Start Date: 09/19/20 Status: OrderedTrulicity Pen 0.75 mg/0.5 mL subcutaneous solution = 0.75 mg, Intramuscular, Every week, # 2 mL, 5 Refills, Maintenance, 05/15/20 12:22:00 EDT, [facility], 167, cm, 04/19/20 9:56:00 EST, Height [...] 30 capsule, 5 Refills, 09/07/20 10:39:00 EDT, [facility], 167, cm, 08/23/20 11:40:00 EDT, Height Start Date: 09/07/20 Status: Ordered Problem List Condition Effective Dates Status Health Status Informant Diabetes(Confirmed) Active Hypertension(Confirmed) Active Hypertriglyceridemia(Confirmed) Active Migraines(Confirmed) Active Uncontrolled type 2 diabetes Active mellitus(Confirmed) Diagnosis Diagnosis Type Effective Dates Health Clinical Infor [facility] Status Service Physical exam Discharge 10/25/20 Diagnosis Diabetes Discharge 10/25/20 Diagnosis Hypertension Discharge 10/25/20 Diagnosis Hypertriglyceridemia Discharge 10/25/20 Diagnosis Migraines Discharge 10/25/20 Diagnosis Vital Signs Most recent to oldest [Reference Range]: 1 2 Height 167 cm 167 cm (10/25/20 4:32 PM) (10/25/20 3:31 PM) Weight 82.5 kg (10/25/20 3:31 PM) Oxygen Saturation [94-100 %] 97 % (10/25/20 3:31 PM) Pulse Rate [55-90 bpm] 98 bpm *H* (10/25/20 3:31 PM) Body Mass Index [18.5-24.99] 29.58 *H* (10/25/20 3:31 PM) Blood Pressure [90-138/55-84 mm Hg] 128/82 mm Hg 115/ 73 mm Hg (10/25/20 4:32 PM) (10/25/20 3:31 PM) Mode of Delivery (Oxygen) Room air (10/25/20 3:31 PM) Blood pressure sites Arm, left Arm, right (10/25/20 4:32 PM) (10/25/20 3:31 PM) Weight Obtained Via Standing scale (10/25/20 3:31 PM) Social History Social History Type Response Smoking Status Never (less than 100 in life time) entered on: 06/12/18 Sex
--- OUTSIDE RECORDS SUMMARY | 2022-04-30 00:36 | XMS_ITS | Continuity of Care Document ---
:1960 Author Organization [facility] Address [address] [place] [address]- Care Team Providers Name Role Phone Justin MIMS, Ly Rivers Primary Care Physician [place] [facility] [place](s[place] 09/03/19 - 10/03/19 [facility] [address] [place] [address]- [facility] Allergies, Adverse Reactions, Alerts Substance Reaction Severity [...] toxoids (Td) 05/20/07 Recorded 1Result Comment: FLU [facility] [id number] Medications amitriptyline 25 mg oral tablet 50 mg, 2, tablet, By Mouth, Daily at bedtime, 2 tab at bedtime. print in bruneian please, # 60 tablet, Refills 6, Tot. Refills 6, Maintenance, 04/21/19 10:06:00 EDT, Route to Pharmacy Electronically, [facility], 167, cm, 03/17... Start [...] tablet, 4 Refills, Maintenance, 09/23/19 11:28:00 EDT,Tablet, [facility], 167, cm, 08/21/19 16:17:00 EDT, Height Start Date: 09/23/19 Stop Date: 02/20/20 Status: OrderedLantus Solostar Pen 100 units/mL subcutaneous solution = 45 units, Subcutaneous Injection, Daily at bedtime, rotate injection sites with evening meal, # 15mL, 3 Refills, Maintenance, 09/25/19 8:59:00 EDT, Injection, [facility], dose increase, 167, cm, 08/21/19 16:17:00 EDT, Height Start Date: 09/25/19 Stop Date: 01/23/20 Status: Orderedlisinopril 30 mg oral tablet 1 tablet = 30 mg, By Mouth, Daily, # 30 tablet, 5 Refills, Maintenance, 05/04/19 9:58:00 EDT, Tablet, [facility], 167, cm, 04/30/19 8:51:00 EDT, Height Start Date: 05/04/19 Stop Date: 10/31/19 Status: OrderedmetFORMIN 1000 mg oral tablet 1 tablet = 1,000 mg, By Mouth, 2 times a day, # 60 tablet, 5 Refills, Maintenance, 10/02/19 13:18:00EDT, Tablet, [facility], 167, cm, 08/21/19 16:17:00 EDT, Height Start Date: 10/02/19 Stop Date: 03/30/20 Status: Orderedomeprazole 20 mg oral delayed release tablet 1 tablet = 20 mg, By Mouth, Daily, # 30 tablet, 11 Refills, Maintenance, 09/03/19 21:29:00 EDT, [facility], 167, cm, 08/21/19 16:17:00 EDT, Height Start Date: 09/03/19 Stop Date: 08/28/20 Status: Orderedsimvastatin 40 mg oral tablet 40 mg, 1, tablet, By Mouth, Daily at bedtime, # 30 tablet, Refills 5, Tot. Refills 5, Maintenance, 09/29/19 14:25:00 EDT, Route to Pharmacy Electronically, [facility], 167, cm, 08/21/19 16:17:00 EDT, Height Start Date: 09/29/19 Stop Date: 03/27/20 Status: OrderedTrulicity Pen 0.75 mg/0.5 mL subcutaneous solution 0.5 mL = 0.75 mg, Subcutaneous Injection, Every week, for 30 days, # 4 each, 3 Refills, Hard Stop 12/24/19 10:14:00 EST, 08/26/19 10:14:00 EDT, Solution, [facility], 167, cm, 08/21/19 16:17:00 EDT, Height Start Date: 08/26/19 Stop Date: 12/24/19 Status: OrderedTrulicity Pen 1.5 mg/0.5 mL subcutaneous solution 0.5 mL = 1.5 mg, Subcutaneous Injection, Every week, rotate injection sites, # 2 mL, 11 Refills, Maintenance, 05/12/19 14:21:00 EDT, Solution, [facility], 167, cm, 05/12/19 13:30:00EDT, Height Start [...] 3 Refills, Maintenance, 07/01/19 14:51:00 EDT, Capsule, [facility], 167, cm, 05/12/19 13:30:00 EDT, Height [...]
--- OUTSIDE RECORDS SUMMARY | 2022-04-30 00:36 | XMS_ITS | Continuity of Care Document ---
:1960 Author Organization [facility] Address [address] [place] [address]- Care Team Providers Name Role Phone Justin MIMS, Ly Rivers Primary Care Physician [id number] [address] [place] [id number] [facility] Encounter Diagnosis Preop examination (Discharge Diagnosis) - 04/30/19 Diabetes (Discharge Diagnosis) - 04/30/19 Attending Physician: Ly Anderson NP Referring Physician: Jacky Berman DPM Allergies, Adverse Reactions, Alerts Substance Reaction Severity [...] toxoids (Td) 05/20/07 Recorded 1Result Comment: FLU [facility] [id number] Medications amitriptyline 25 mg oral tablet 50 mg, 2, tablet, By Mouth, Daily at bedtime, 2 tab at bedtime. print in albanian please, # 60 tablet, Refills 6, Tot. Refills 6, Maintenance, 04/21/19 10:06:00 EDT, Route to Pharmacy Electronically, [facility], 167, cm, 03/17... [...] tablet, 4 Refills, Maintenance, 04/30/19 16:56:00 EDT,Tablet, [facility], 167, cm, 04/30/19 8:51:00 EDT, [...] 5 Refills, Maintenance, 05/04/19 9:58:00 EDT, Tablet, [facility], 167, cm, 04/30/19 8:51:00 EDT, Height Start Date: 05/04/19 Stop Date: 10/31/19 Status: OrderedmetFORMIN 1000 mg oral tablet 1 tablet = 1,000 mg, By Mouth, 2 times a day, # 60 tablet, 5 Refills, Maintenance, 03/09/19 14:35:00EST, Tablet, [facility] - , 167, cm, 11/18/18 [...] 03/09/19 14:28:00 EST, Route to Pharmacy Electronically, [facility], 167, cm,11/18/18 14:43:00 EDT, Height Start Date: 03/09/19 Stop Date: 09/05/19 Status: OrderedTrulicity Pen 0.75 mg/0.5 mL subcutaneous solution 0.5 mL = 0.75 mg, Subcutaneous Injection, Every week, # 4 each, 3 Refills, Maintenance, 04/13/19 11:07:00 EST, Solution, [facility], 167, cm, 03/17/19 16:02:00 EST, Height Start Date: 04/13/19 Stop Date: 08/11/19 Status: OrderedUlticare pen needles 4mm 32g Ulticare pen needles 4mm 32g, See Instructions, # 200 each, Refills 2, Tot. Refills 2, Maintenance, use daily to test blood sugars dx e11.6, 10/09/18 16:44:57 EDT, Compound Start Date: 10/09/18 Status: OrderedVitamin D3 2000 intl units oral capsule 1 capsule = 2,000 International_Units, By Mouth, Daily, # 30 capsule, 3 Refills, Maintenance, 03/09/19 11:00:00 EST, Capsule, [facility], 167, cm, 11/18/18 14:43:00 EDT, Height Start Date: 03/09/19 Stop Date: 07/07/19 Status: Ordered Problem List Condition Effective Dates Status Health Status Informant Diabetes(Confirmed) Active Hypertension(Confirmed) Active Migraines(Confirmed) Active Diagnosis Diagnosis Type Effective Dates Health Clinical Infor mant Status Service Preop examination Discharge 04/30/19 Diagnosis Diabetes Discharge 04/30/19 Diagnosis Vital Signs Most recent to oldest [Reference Range]: 1 Height 167 cm (04/30/19 8:51 AM) Weight 81.9 kg (04/30/19 8:51 AM) Oxygen Saturation [94-100 %] 96 % (04/30/19 8:51 AM) Pulse Rate [55-90 bpm] 106 bpm *H* (04/30/19 8:51 AM) Body Mass Index [18.5-24.99] 29.37 *H* (04/30/19 8:51 AM) Blood Pressure [90-138/55-84 mm Hg] 120/66 mm Hg (04/30/19 8:51 AM) Temperature [96.8-100.4 DegF] 98.3 DegF (04/30/19 8:51 AM) Mode of Delivery (Oxygen) Room air (04/30/19 8:51 AM) Blood pressure sites Arm, right (04/30/19 8:51 AM) Temperature Route Oral (04/30/19 8:51 AM) Weight Obtained Via Standing scale (04/30/19 8:51 AM) Social History Social History Type Response Smoking Status Never (less than 100 in life time) entered on: 06/12/18 Sex
--- OUTSIDE RECORDS SUMMARY | 2022-04-30 00:36 | XMS_ITS | Continuity of Care Document ---
:1960 Author Organization [facility] Address [address], 3rd [address], [address] [place] [address]- Care Team Providers Name Role Phone Justin F[employer] DEVELOPER, Ly Rivers Primary Care Physician [phone] Encounter [facility] [place] Date(s): 04/14/20 - 05/14/20 [facility] [address], [address], [address] [place] [id number] Attending Physician: Trevon Walls Admitting Physician: Admtr, Ar8 Referring Physician: Admtr, Ar8 Allergies, Adverse Reactions, [...] toxoids (Td) 05/20/07 Recorded 1Result Comment: FLU [facility][NOTE 3] [id number] Medications amitriptyline 25 mg oral tablet 50 mg, 2, tablet, By Mouth, Daily at bedtime, 2 tab at bedtime. print in tamazight please, # 60 tablet, Refills 7, Tot. Refills 7, Maintenance, 04/14/20 13:04:00 EST, Route to Pharmacy Electronically, [facility], 167, cm, 03/17/20 7... [...] tablet, 4 Refills, Maintenance, 02/24/20 10:42:00 EST,Tablet, [facility], 167, cm, 12/25/19 10:26:00 EST, Height Start Date: 02/24/20 Stop Date: 07/23/20 Status: OrderedLantus Solostar Pen 100 units/mL subcutaneous solution = 45 units, Subcutaneous Injection, Daily at bedtime, rotate injection sites with evening meal, # 15mL, 3 Refills, Maintenance, 02/23/20 14:16:00 EST, Injection, [facility], dose increase, 167, cm, 12/25/19 10:26:00 EST, Height Start Date: 02/23/20 Stop Date: 06/22/20 Status: Orderedlisinopril 30 mg oral tablet 1 tablet = 30 mg, By Mouth, Daily, for 30 days, # 30 tablet, 2 Refills, Hard Stop 05/24/20 10:42:00 EDT, 02/24/20 10:42:00 EST, Tablet, [facility], 167, cm, 12/25/19 10:26:00 EST, Height Start Date: 02/24/20 Stop Date: 05/24/20 Status: Orderedlisinopril 30 mg oral tablet 1 tablet = 30 mg, By Mouth, Daily, # 30 tablet, 5 Refills, Maintenance, 05/24/20 10:42:00 EDT, Tablet, [facility], 167, cm, 04/19/20 9:56:00 EST, Height Start Date: 05/24/20 Stop Date: 11/20/20 Status: OrderedmetFORMIN 1000 mg oral tablet 1 tablet = 1,000 mg, By Mouth, 2 times a day, # 60 tablet, 2 Refills, Maintenance, 03/23/20 10:18:00EST, Tablet, [facility], 167, cm, 03/17/20 7:33:00 EST, Height Start Date: 03/23/20 Stop Date: 06/21/20 Status: Orderedomeprazole 20 mg oral delayed release tablet 1 tablet = 20 mg, By Mouth, Daily, # 30 tablet, 11 Refills, Maintenance, 09/03/19 21:29:00 EDT, [facility], 167, cm, 08/21/19 16:17:00 EDT, Height Start Date: 09/03/19 Stop Date: 08/28/20 Status: OrderedPen [place], 31 G x 5 mm BD Ultra [...] 0 Refills, Maintenance, 03/17/20 8:42:00 EST, Aerosol, [facility], Partial fill upon patient request if the prescription is for a schedule II opioid drug., 1 pu... Start Date: 03/17/20 Stop Date: 04/16/20 Status: Orderedsimvastatin 40 mg oral tablet 40 mg, 1, tablet, By Mouth, Daily at bedtime, # 90 tablet, Refills 0, Tot. Refills 0, Maintenance, 03/23/20 10:17:00 EST, Route to Pharmacy Electronically, [facility], 167, cm, 03/17/20 7:33:00 EST, Height Start Date: 03/23/20 Stop Date: 09/19/20 Status: OrderedTrulicity Pen 0.75 mg/0.5 mL subcutaneous solution = 0.75 mg, Intramuscular, Every week, # 2 mL, 5 Refills, Maintenance, 05/15/20 12:22:00 EDT, [facility], 167, cm, 04/19/20 9:56:00 EST, Height Start Date: 05/15/20 Stop Date: 11/11/20 Status: OrderedTrulicity Pen 0.75 mg/0.5 mL subcutaneous solution = 0.75 mg, Intramuscular, Every week, for 30 days, # 4 each, 2 Refills, Hard Stop 05/15/20 12:22:00 EDT, 02/15/20 12:22:00 EST, [facility], 167, cm, 12/25/19 10:26:00 EST, [...] 30 capsule, 5 Refills, 03/15/20 7:53:00 EST, [facility], 167, cm, 03/03/20 12:52:00 EST, Height Start Date: 03/15/20 Status: Ordered Problem List Condition Effective Dates Status Health Status Informant Diabetes(Confirmed) Active Hypertension(Confirmed) Active Hypertriglyceridemia(Confirmed) Active Migraines(Confirmed) Active Uncontrolled type 2 diabetes Active mellitus(Confirmed) Social History Social History Type Response Smoking Status Never (less than 100 in life time) entered on: 06/12/18 Sex
--- OUTSIDE RECORDS SUMMARY | 2022-04-30 00:36 | XMS_ITS | Continuity of Care Document ---
:1960 Author Organization [facility] Address [address] [place] [address]- Care Team Providers Name Role Phone Justin MIMS, Ly Rivers Primary Care Physician Encounter [facility] Date(s): 08/21/19 - 09/20/19 [facility] [address] [place] [id number]- [facility] Attending Physician: Titi, Trevon Admitting Physician: AdmtrTrevon Referring Physician: Admtr, Ar8 [...] (Td) 05/20/07 Recorded 1Result Comment: FLU [facility] [id number] Medications amitriptyline 25 mg oral tablet 50 mg, 2, tablet, By Mouth, Daily at bedtime, 2 tab at bedtime. print in portuguese please, # 60 tablet, Refills 6, Tot. Refills 6, Maintenance, 04/21/19 10:06:00 EDT, Route to Pharmacy Electronically, [facility], 167, cm, 03/17... [...] 4 Refills, Maintenance, 04/30/19 16:56:00 EDT,Tablet, [facility], 167, cm, 04/30/19 8:51:00 EDT, Height Start Date: 04/30/19 Stop Date: 09/27/19 Status: OrderedLantus Solostar Pen 100 units/mL subcutaneous solution = 45 units, Subcutaneous Injection, Daily at bedtime, rotate injection sites with evening meal, # 15mL, 3 Refills, Maintenance, 05/12/19 14:23:00 EDT, Injection, [facility], dose increase, 167, cm, 05/12/19 13:30:00 EDT, Height Start Date: 05/12/19 Stop Date: 09/09/19 Status: Orderedlisinopril 30 mg oral tablet 1 tablet = 30 mg, By Mouth, Daily, # 30 tablet, 5 Refills, Maintenance, 05/04/19 9:58:00 EDT, Tablet, [facility], 167, cm, 04/30/19 8:51:00 EDT, Height Start Date: 05/04/19 Stop Date: 10/31/19 Status: OrderedmetFORMIN 1000 mg oral tablet 1 tablet = 1,000 mg, By Mouth, 2 times a day, # 60 tablet, 5 Refills, Maintenance, 03/09/19 14:35:00EST, Tablet, [facility] - , 167, cm, 11/18/18 14:43:00 EDT, Height Start Date: 03/09/19 Stop Date: 09/05/19 Status: Orderedomeprazole 20 mg oral delayed release tablet 1 tablet = 20 mg, By Mouth, Daily, # 30 tablet, 11 Refills, Maintenance, 09/03/19 21:29:00 EDT, [facility], 167, cm, 08/21/19 16:17:00 EDT, Height Start Date: 09/03/19 Stop Date: 08/28/20 Status: Orderedsimvastatin 40 mg oral tablet 40 mg, 1, tablet, By Mouth, Daily at bedtime, # 30 tablet, Refills 5, Tot. Refills 5, Maintenance, 03/09/19 14:28:00 EST, Route to Pharmacy Electronically, [facility] - , 167, cm,11/18/18 14:43:00 EDT, Height Start Date: 03/09/19 Stop Date: 09/05/19 Status: OrderedTrulicity Pen 0.75 mg/0.5 mL subcutaneous solution 0.5 mL = 0.75 mg, Subcutaneous Injection, Every week, for 30 days, # 4 each, 3 Refills, Hard Stop 12/24/19 10:14:00 EST, 08/26/19 10:14:00 EDT, Solution, [facility], 167, cm, 08/21/19 16:17:00 EDT, Height Start Date: 08/26/19 Stop Date: 12/24/19 Status: OrderedTrulicity Pen 1.5 mg/0.5 mL subcutaneous solution 0.5 mL = 1.5 mg, Subcutaneous Injection, Every week, rotate injection sites, # 2 mL, 11 Refills, Maintenance, 05/12/19 14:21:00 EDT, Solution, [facility], 167, cm, 05/12/19 13:30:00EDT, Height [...] Refills, Maintenance, 07/01/19 14:51:00 EDT, Capsule, [facility], 167, cm, 05/12/19 13:30:00 EDT, [...]
--- OUTSIDE RECORDS SUMMARY | 2022-04-30 00:36 | XMS_ITS | Continuity of Care Document ---
:1960 Author Organization [facility] Address [address] [place] [address]- Care Team Providers Name Role Phone Justin MIMS, Ly Rivers Primary Care Physician Encounter [facility] [place] Date(s): 06/01/20 - 07/01/20 [facility] [address] [place] [phone]- Attending Physician: Trevon Walls Admitting Physician: AdmTrevon [...] toxoids (Td) 05/20/07 Recorded 1Result Comment: FLU [facility] [id number] Medications amitriptyline 25 mg oral tablet 50 mg, 2, tablet, By Mouth, Daily at bedtime, 2 tab at bedtime. print in lithuanian please, # 60 tablet, Refills 7, Tot. Refills 7, Maintenance, 04/14/20 13:04:00 EST, Route to Pharmacy Electronically, [facility], 167, cm, 03/17/20 7... Start Date: 04/14/20 Stop Date: 12/10/20 Status: Orderedcetirizine 10 mg oral tablet 1 tablet = 10 mg, By Mouth, Daily, # 14 tablet, 0 Refills, Maintenance, 05/26/20 8:18:00 EDT, Tablet, [facility], [place] instructions, 167, cm, 04/19/20 9:56:00 EST, Height [...] tablet, 4 Refills, Maintenance, 02/24/20 10:42:00 EST,Tablet, [facility], 167, cm, 12/25/19 10:26:00 EST, Height Start Date: 02/24/20 Stop Date: 07/23/20 Status: OrderedLantus Solostar Pen 100 units/mL subcutaneous solution = 45 units, Subcutaneous Injection, Daily at bedtime, rotate injection sites with evening meal, # 15mL, 3 Refills, Maintenance, 02/23/20 14:16:00 EST, Injection, [facility], dose increase, 167, cm, 12/25/19 10:26:00 EST, Height Start Date: 02/23/20 Stop Date: 06/22/20 Status: Orderedlisinopril 30 mg oral tablet 1 tablet = 30 mg, By Mouth, Daily, # 30 tablet, 5 Refills, Maintenance, 05/24/20 10:42:00 EDT, Tablet, [facility], 167, cm, 04/19/20 9:56:00 EST, Height Start Date: 05/24/20 Stop Date: 11/20/20 Status: OrderedmetFORMIN 1000 mg oral tablet 1 tablet = 1,000 mg, By Mouth, 2 times a day, # 60 tablet, 5 Refills, Maintenance, 06/15/20 10:42:00EDT, Tablet, [facility], 167, cm, 06/01/20 12:40:00 EDT, Height Start Date: 06/15/20 Stop Date: 12/12/20 Status: Orderedomeprazole 20 mg oral delayed release tablet 1 tablet = 20 mg, By Mouth, Daily, # 30 tablet, 11 Refills, Maintenance, 09/03/19 21:29:00 EDT, [facility], 167, cm, 08/21/19 16:17:00 EDT, Height Start Date: 09/03/19 Stop Date: 08/28/20 Status: OrderedPen [place], 31 G x 5 mm BD Ultra [...] 0 Refills, Maintenance, 03/17/20 8:42:00 EST, Aerosol, [facility], Partial fill upon patient request if the prescription is for a schedule II opioid drug., 1 pu... Start Date: 03/17/20 Stop Date: 04/16/20 Status: Orderedsimvastatin 40 mg oral tablet 40 mg, 1, tablet, By Mouth, Daily at bedtime, # 90 tablet, Refills 0, Tot. Refills 0, Hard Stop 09/19/20 10:17:00 EDT, 03/23/20 10:17:00 EST, Route to Pharmacy Electronically, [facility], 167, cm, 03/17/20 7:33:00 EST, Height Start Date: 03/23/20 Stop Date: 09/19/20 Status: Orderedsimvastatin 40 mg oral tablet 40 mg, 1, tablet, By Mouth, Daily at bedtime, # 90 tablet, Refills 1, Tot. Refills 1, Maintenance, 09/19/20 10:17:00 EDT, Route to Pharmacy Electronically, [facility], 167, cm, 06/01/20 12:40:00 EDT, Height Start Date: 09/19/20 Status: OrderedTrulicity Pen 0.75 mg/0.5 mL subcutaneous solution = 0.75 mg, Intramuscular, Every week, # 2 mL, 5 Refills, Maintenance, 05/15/20 12:22:00 EDT, [facility], 167, cm, 04/19/20 9:56:00 EST, [...] 30 capsule, 5 Refills, 03/15/20 7:53:00 EST, [facility], 167, cm, 03/03/20 12:52:00 EST, Height Start Date: 03/15/20 Status: Ordered Problem List Condition Effective Dates Status Health Status Informant Diabetes(Confirmed) Active Hypertension(Confirmed) Active Hypertriglyceridemia(Confirmed) Active Migraines(Confirmed) Active Uncontrolled type 2 diabetes Active mellitus(Confirmed) Social History Social History Type Response Smoking Status Never (less than 100 in life time) entered on: 06/12/18 Sex
--- OUTSIDE RECORDS SUMMARY | 2022-04-30 00:36 | XMS_ITS | Continuity of Care Document ---
:1960 Author Organization [facility] Address [address] [place] [address]- Care Team Providers Name Role Phone Ly Anderson NP Primary Care Physician [place] [facility] [place] 02/24[place]21 - 03/03/21 [facility] [address] [place] [id number]- Encounter Diagnosis Depression (Discharge Diagnosis) - 02/24/21 Hypertension (Discharge Diagnosis) - 02/24/21 Hypertriglyceridemia (Discharge Diagnosis) - 02/24/21 Migraines (Discharge Diagnosis) - 02/24/21 Uncontrolled type 2 diabetes mellitus (Discharge Diagnosis) - 02/24/21 Attending Physician: Ly Anderson NP Allergies, Adverse [...] toxoids (Td) 05/20/07 Recorded 1Result Comment: FLU [facility] [id number] Medications amitriptyline 25 mg oral tablet 2, tablet, By Mouth, Daily at bedtime, # 60 tablet, Refills 7, Route to Pharmacy Electronically, [facility], 167, cm, 10/25/20 16:32:00 EDT, Height Start Date: 11/29/20 Status: Orderedcetirizine 10 mg oral tablet 1 tablet = 10 mg, By Mouth, Daily, # 14 tablet, 0 Refills, Maintenance, 05/26/20 8:18:00 EDT, Tablet, [facility], [place]ese instructions, 167, cm, 04/19/20 9:56:00 EST, Height [...] 0 Refills, Maintenance, 08/23/20 11:33:00 EDT, Tablet, [facility], Partial fill upon patient request if the prescription is for a schedule II opioid drug., 16... Start Date: 08/23/20 Stop Date: 09/22/20 Status: OrderedJardiance 25 mg oral tablet 1 tablet = 25 mg, By Mouth, Daily in AM, # 30 tablet, 11 Refills, Maintenance, 10/25/20 16:03:00 EDT, Tablet, [facility], Partial fill upon patient request if the prescription is for a schedule II opioid drug., 167, cm, 10/25/20 15... Start Date: 10/25/20 Stop Date: 10/20/21 Status: OrderedLantus Solostar Pen 100 units/mL subcutaneous solution See Instructions, INJECT 45 UNITS SUBCUTANEOUSLY EVERY EVENING WITH DINNER. ROTATE INJECTION SITES.,# 15 mL, 5 Refills, [facility], 167, cm, 02/01/21 13:19:00 EST, Height Start Date: 02/11/21 Status: Orderedlisinopril 30 mg oral tablet See Instructions, TAKE 1 TABLET BY MOUTH EVERYDAY AT NOON, # 30 tablet, 3 Refills, [facility], 167, cm, 02/01/21 13:19:00 EST, Height Start Date: 02/09/21 Status: OrderedmetFORMIN 1000 mg oral tablet See Instructions, TAKE 1 TABLET BY MOUTH TWICE DAILY IN THE MORNING AND AT BEDTIME, # 60 tablet, 5 Refills, [facility], 167, cm, 10/25/20 16:32:00 EDT, Height Start Date: 11/29/20 Status: Orderedomeprazole 20 mg oral delayed release tablet 1 tablet = 20 mg, By Mouth, Daily, # 30 tablet, 11 Refills, Maintenance, 08/17/20 13:14:00 EDT, [facility], 167, cm, 06/01/20 12:40:00 EDT, Height Start Date: 08/17/20 Stop Date: 08/12/21 Status: OrderedPen [place], 31 G x 5 mm BD Ultra [...] 0 Refills, Maintenance, 03/17/20 8:42:00 EST, Aerosol, [facility], Partial fill upon patient request if the prescription is for a schedule II opioid drug., 1 pu... Start Date: 03/17/20 Stop Date: 04/16/20 Status: Orderedsimvastatin 40 mg oral tablet 1, tablet, By Mouth, Daily at bedtime, # 90 tablet, Refills 1, Route to Pharmacy Electronically, [facility], 167, cm, 10/25/20 16:32:00 EDT, Height Start Date: 12/28/20 Status: OrderedTrulicity Pen 0.75 mg/0.5 mL subcutaneous solution = 0.75 mg, Intramuscular, Every week, # 2 mL, 5 Refills, Maintenance, 11/11/20 11:26:00 EDT, [facility], 167, cm, 10/25/20 16:32:00 EDT, [...] 30 capsule, 5 Refills, 09/07/20 10:39:00 EDT, [facility], 167, cm, 08/23/20 11:40:00 EDT, Height Start Date: 09/07/20 Status: Ordered Problem List Condition Effective Dates Status Health Status Informant Hypertension(Confirmed) Active Hypertriglyceridemia(Confirmed) Active Migraines(Confirmed) Active Uncontrolled type 2 diabetes Active mellitus(Confirmed) Diagnosis Diagnosis Type Effective Health Clinical Informant Dates Status Service Depression Discharge 02/24/21 Diagnosis Hypertension Discharge 02/24/21 Diagnosis Hypertriglyceridemia Discharge 02/24/21 Diagnosis Migraines Discharge 02/24/21 Diagnosis Uncontrolled type 2 Discharge 02/24/21 diabetes mellitus Diagnosis Vital Signs Most recent to oldest [Reference Range]: 1 2 Height 167 cm 167 cm (02/24/21 11:47 AM) (02/24/21 11:16 AM) Weight 83.6 kg (02/24/21 11:16 AM) Oxygen Saturation [94-100 %] 98 % (02/24/21 11:16 AM) Pulse Rate [55-90 bpm] 92 bpm *H* (02/24/21 11:16 AM) Body Mass Index [18.5-24.99] 29.98 *H* (02/24/21 11:16 AM) Blood Pressure [90-138/55-84 mm Hg] 128/82 mm Hg 105/ 69 mm Hg (02/24/21 11:47 AM) (02/24/21 11:16 AM) Mode of Delivery (Oxygen) Room air (02/24/21 11:16 AM) Blood pressure sites Arm, left Arm, left (02/24/21 11:47 AM) (02/24/21 11:16 AM) Weight Obtained Via Standing scale (02/24/21 11:16 AM) Social History Social History Type Response Smoking Status Never (less than 100 in life time) entered on: 06/12/18 Sex
--- OUTSIDE RECORDS SUMMARY | 2022-04-30 00:36 | XMS_ITS | Continuity of Care Document ---
:1960 Author Organization [facility] Address [address] [place] [address]- Care Team Providers Name Role Phone Justin MIMS, Ly Rivers Primary Care Physician [place] [facility] [place] 08/[place]19 - 09/30/19 [facility] [address] [place] [id number]- [facility] Allergies, Adverse Reactions, Alerts Substance Reaction Severity [...] [facility] [id number] Medications amitriptyline 25 mg oral tablet 50 mg, 2, tablet, By Mouth, Daily at bedtime, 2 tab at bedtime. print in panamanian please, # 60 tablet, Refills 6, Tot. Refills 6, Maintenance, 04/21/19 10:06:00 EDT, Route to Pharmacy Electronically, [facility], 167, cm, 03/17... [...] tablet, 4 Refills, Maintenance, 09/23/19 11:28:00 EDT,Tablet, [facility], 167, cm, 08/21/19 16:17:00 EDT, Height Start Date: 09/23/19 Stop Date: 02/20/20 Status: OrderedLantus Solostar Pen 100 units/mL subcutaneous solution = 45 units, Subcutaneous Injection, Daily at bedtime, rotate injection sites with evening meal, # 15mL, 3 Refills, Maintenance, 09/25/19 8:59:00 EDT, Injection, [facility], dose increase, 167, cm, 08/21/19 16:17:00 EDT, Height Start Date: 09/25/19 Stop Date: 01/23/20 Status: Orderedlisinopril 30 mg oral tablet 1 tablet = 30 mg, By Mouth, Daily, # 30 tablet, 5 Refills, Maintenance, 05/04/19 9:58:00 EDT, Tablet, [facility], 167, cm, 04/30/19 8:51:00 EDT, Height Start Date: 05/04/19 Stop Date: 10/31/19 Status: OrderedmetFORMIN 1000 mg oral tablet 1 tablet = 1,000 mg, By Mouth, 2 times a day, # 60 tablet, 5 Refills, Maintenance, 03/09/19 14:35:00EST, Tablet, [facility] - , 167, cm, 11/18/18 14:43:00 EDT, Height Start Date: 03/09/19 Stop Date: 09/05/19 Status: Orderedomeprazole 20 mg oral delayed release tablet 1 tablet = 20 mg, By Mouth, Daily, # 30 tablet, 11 Refills, Maintenance, 09/03/19 21:29:00 EDT, [facility], 167, cm, 08/21/19 16:17:00 EDT, Height Start Date: 09/03/19 Stop Date: 08/28/20 Status: Orderedsimvastatin 40 mg oral tablet 40 mg, 1, tablet, By Mouth, Daily at bedtime, # 30 tablet, Refills 5, Tot. Refills 5, Maintenance, 09/29/19 14:25:00 EDT, Route to Pharmacy Electronically, [facility], 167, cm, 08/21/19 16:17:00 EDT, Height Start Date: 09/29/19 Stop Date: 03/27/20 Status: OrderedTrulicity Pen 0.75 mg/0.5 mL subcutaneous solution 0.5 mL = 0.75 mg, Subcutaneous Injection, Every week, for 30 days, # 4 each, 3 Refills, Hard Stop 12/24/19 10:14:00 EST, 08/26/19 10:14:00 EDT, Solution, [facility], 167, cm, 08/21/19 16:17:00 EDT, Height Start Date: 08/26/19 Stop Date: 12/24/19 Status: OrderedTrulicity Pen 1.5 mg/0.5 mL subcutaneous solution 0.5 mL = 1.5 mg, Subcutaneous Injection, Every week, rotate injection sites, # 2 mL, 11 Refills, Maintenance, 05/12/19 14:21:00 EDT, Solution, [facility], 167, cm, 05/12/19 13:30:00EDT, Height [...] 3 Refills, Maintenance, 07/01/19 14:51:00 EDT, Capsule, [facility], 167, cm, 05/12/19 13:30:00 EDT, [...]
--- OUTSIDE RECORDS SUMMARY | 2022-04-30 00:36 | XMS_ITS | Continuity of Care Document ---
:1960 Author Organization [facility] Adult Address [address] [place] [address]- Care Team Providers Name Role Phone Justin DESKTOP PUBLISHING ASSOCIATE, Ly Rivers Primary Care Physician [phone] Encounter [facility] Date(s): 03/16/20 - 04/15/20 [facility] Adult [address] [place] [id number]- Allergies, Adverse Reactions, Alerts Substance Reaction Severity [...] 05/20/07 Recorded 1Result Comment: FLU [facility] 58214-229-13 Medications amitriptyline 25 mg oral tablet 50 mg, 2, tablet, By Mouth, Daily at bedtime, 2 tab at bedtime. print in belizean please, # 60 tablet, Refills 7, Tot. Refills 7, Maintenance, 04/14/20 13:04:00 EST, Route to Pharmacy Electronically, [facility], 167, cm, 03/17/20 7... Start Date: [...] tablet, 4 Refills, Maintenance, 02/24/20 10:42:00 EST,Tablet, [facility], 167, cm, 12/25/19 10:26:00 EST, Height Start Date: 02/24/20 Stop Date: 07/23/20 Status: OrderedLantus Solostar Pen 100 units/mL subcutaneous solution = 45 units, Subcutaneous Injection, Daily at bedtime, rotate injection sites with evening meal, # 15mL, 3 Refills, Maintenance, 02/23/20 14:16:00 EST, Injection, [facility], dose increase, 167, cm, 12/25/19 10:26:00 EST, Height Start Date: 02/23/20 Stop Date: 06/22/20 Status: Orderedlisinopril 30 mg oral tablet 1 tablet = 30 mg, By Mouth, Daily, # 30 tablet, 2 Refills, Maintenance, 02/24/20 10:42:00 EST, Tablet, [facility], 167, cm, 12/25/19 10:26:00 EST, Height Start Date: 02/24/20 Stop Date: 05/24/20 Status: OrderedmetFORMIN 1000 mg oral tablet 1 tablet = 1,000 mg, By Mouth, 2 times a day, # 60 tablet, 2 Refills, Maintenance, 03/23/20 10:18:00EST, Tablet, [facility], 167, cm, 03/17/20 7:33:00 EST, Height Start Date: 03/23/20 Stop Date: 06/21/20 Status: Orderedomeprazole 20 mg oral delayed release tablet 1 tablet = 20 mg, By Mouth, Daily, # 30 tablet, 11 Refills, Maintenance, 09/03/19 21:29:00 EDT, [facility], 167, cm, 08/21/19 16:17:00 EDT, Height Start Date: 09/03/19 Stop Date: 08/28/20 Status: OrderedPen [place], 31 G x 5 mm BD Ultra [...] 0 Refills, Maintenance, 03/17/20 8:42:00 EST, Aerosol, [facility], Partial fill upon patient request if the prescription is for a schedule II opioid drug., 1 pu... Start Date: 03/17/20 Stop Date: 04/16/20 Status: Orderedsimvastatin 40 mg oral tablet 40 mg, 1, tablet, By Mouth, Daily at bedtime, # 90 tablet, Refills 0, Tot. Refills 0, Maintenance, 03/23/20 10:17:00 EST, Route to Pharmacy Electronically, [facility], 167, cm, 03/17/20 7:33:00 EST, Height Start Date: 03/23/20 Stop Date: 09/19/20 Status: OrderedTrulicity Pen 0.75 mg/0.5 mL subcutaneous solution = 0.75 mg, Intramuscular, Every week, # 4 each, 2 Refills, Maintenance, 02/15/20 12:22:00 EST, [facility], 167, cm, 12/25/19 10:26:00 EST, Height [...] 30 capsule, 5 Refills, 03/15/20 7:53:00 EST, [facility], 167, cm, 03/03/20 12:52:00 EST, Height Start Date: 03/15/20 Status: Ordered Problem List Condition Effective Dates Status Health Status Informant Diabetes(Confirmed) Active Hypertension(Confirmed) Active Hypertriglyceridemia(Confirmed) Active Migraines(Confirmed) Active Uncontrolled type 2 diabetes Active mellitus(Confirmed) Social History Social History Type Response Smoking Status Never (less than 100 in life time) entered on: 06/12/18 Sex
--- OUTSIDE RECORDS SUMMARY | 2022-04-30 00:36 | XMS_ITS | Continuity of Care Document ---
:1960 Author Organization [facility] Adult Address [address] [place] [address]- Care Team Providers Name Role Phone Ly Anderson NP Primary Care Physician Encounter [facility] [place] Date(s): 11/23/19 - 11/30/19 [facility] Adult [address] [place] [id number]- [facility] Encounter Diagnosis Right leg pain (Discharge Diagnosis) - 11/23/19 Attending Physician: Ly Anderson NP Allergies, Adverse [...] Comment: FLU [facility] [id number] Medications amitriptyline 25 mg oral tablet 50 mg, 2, tablet, By Mouth, Daily at bedtime, 2 tab at bedtime. print in beninese please, # 60 tablet, Refills 7, Tot. Refills 7, Maintenance, 10/15/19 13:03:00 EDT, Route to Pharmacy Electronically, [facility], 167, cm, 10/15/19 1... Start [...] tablet, 4 Refills, Maintenance, 09/23/19 11:28:00 EDT,Tablet, [facility], 167, cm, 08/21/19 16:17:00 EDT, Height Start Date: 09/23/19 Stop Date: 02/20/20 Status: OrderedLantus Solostar Pen 100 units/mL subcutaneous solution = 45 units, Subcutaneous Injection, Daily at bedtime, rotate injection sites with evening meal, # 15mL, 3 Refills, Maintenance, 09/25/19 8:59:00 EDT, Injection, [facility], dose increase, 167, cm, 08/21/19 16:17:00 EDT, Height Start Date: 09/25/19 Stop Date: 01/23/20 Status: Orderedlisinopril 30 mg oral tablet 1 tablet = 30 mg, By Mouth, Daily, # 30 tablet, 5 Refills, Maintenance, 05/04/19 9:58:00 EDT, Tablet, [facility], 167, cm, 04/30/19 8:51:00 EDT, Height Start Date: 05/04/19 Stop Date: 10/31/19 Status: OrderedmetFORMIN 1000 mg oral tablet 1 tablet = 1,000 mg, By Mouth, 2 times a day, # 60 tablet, 5 Refills, Maintenance, 10/02/19 13:18:00EDT, Tablet, [facility], 167, cm, 08/21/19 16:17:00 EDT, Height Start Date: 10/02/19 Stop Date: 03/30/20 Status: Orderednaproxen 500 mg oral tablet 1 tablet = 500 mg, By Mouth, 2 times a day, for 30 days, # 60 tablet, 0 Refills, Acute 12/23/19 14:07:00 EST, 11/23/19 14:07:00 EDT, [facility], 167, cm, 11/23/19 13:51:00 EDT, Height Start Date: 11/23/19 Stop Date: 12/23/19 Status: Orderedomeprazole 20 mg oral delayed release tablet 1 tablet = 20 mg, By Mouth, Daily, # 30 tablet, 11 Refills, Maintenance, 09/03/19 21:29:00 EDT, [facility], 167, cm, 08/21/19 16:17:00 EDT, Height Start Date: 09/03/19 Stop Date: 08/28/20 Status: OrderedPen [place], 31 G x 5 mm BD Ultra [...] 09/29/19 14:25:00 EDT, Route to Pharmacy Electronically, [facility], 167, cm, 08/21/19 16:17:00 EDT, Height Start Date: 09/29/19 Stop Date: 03/27/20 Status: OrderedTrulicity Pen 0.75 mg/0.5 mL subcutaneous solution = 0.75 mg, Intramuscular, Every week, # 4 each, 3 Refills, Maintenance, 10/13/19 17:07:00 EDT, [facility], 167, cm, 10/13/19 14:02:00 EDT, [...] NOON, # 30 capsule, 3 Refills, Maintenance, [facility], 167, cm, 10/15/19 12:43:00 EDT, Height Start Date: 11/19/19 Status: Ordered Problem List Condition Effective Dates Status Health Status Informant Diabetes(Confirmed) Active Hypertension(Confirmed) Active Hypertriglyceridemia(Confirmed) Active Migraines(Confirmed) Active Uncontrolled type 2 diabetes Active mellitus(Confirmed) Diagnosis Diagnosis Type Effective Dates Health Status Clinical In formant Service Right leg pain Discharge 11/23/19 Diagnosis Vital Signs Most recent to oldest [Reference Range]: 1 2 Height 167 cm 167 cm (11/23/19 2:14 PM) (11/23/19 1:51 PM) Weight 81.6 kg (11/23/19 1:51 PM) Oxygen Saturation [94-100 %] 98 % (11/23/19 1:51 PM) Pulse Rate [55-90 bpm] 86 bpm (11/23/19 1:51 PM) Body Mass Index [18.5-24.99] 29.26 *H* (11/23/19 1:51 PM) Blood Pressure [90-138/55-84 mm Hg] 108/72 mm Hg 116/ 70 mm Hg (11/23/19 2:14 PM) (11/23/19 1:51 PM) Blood pressure sites Arm, left Arm, left (11/23/19 2:14 PM) (11/23/19 1:51 PM) Weight Obtained Via Standing scale (11/23/19 1:51 PM) Social History Social History Type Response Smoking Status Never (less than 100 in life time) entered on: 06/12/18 Sex
--- OUTSIDE RECORDS SUMMARY | 2022-04-30 00:36 | XMS_ITS | Continuity of Care Document ---
:1960 Author Organization [facility] Adult Address [address] [place] [address]- Care Team Providers Name Role Phone Ly Anderson NP Primary Care Physician Encounter [facility] Date(s): 07/20/21 - 07/27/21 [facility] Adult [address] [place] [phone]- Encounter Diagnosis Abdominal pain (Discharge Diagnosis) - 07/20/21 Pain in right shoulder (Discharge Diagnosis) - 07/20/21 Anxiety and depression (Discharge Diagnosis) - 07/20/21 GERD with esophagitis (Discharge Diagnosis) - 07/20/21 Attending Physician: Ly Anderson NP Allergies, Adverse [...] toxoids (Td) 05/20/07 Recorded 1Result Comment: FLU [facility] 43033-458-68 Medications amitriptyline 25 mg oral tablet 2, tablet, By Mouth, Daily at bedtime, # 60 tablet, Refills 7, Route to Pharmacy Electronically, [facility], 167, cm, 10/25/20 16:32:00 EDT, Height Start Date: 11/29/20 Status: Orderedcetirizine 10 mg oral tablet 1 tablet = 10 mg, By Mouth, Daily, # 14 tablet, 0 Refills, Maintenance, 05/26/20 8:18:00 EDT, Tablet, [facility], Algerian instructions, 167, cm, 04/19/20 9:56:00 EST, Height Start Date: 05/26/20 Stop Date: 06/09/20 Status: Ordereddulaglutide 1.5 mg/0.5 mL subcutaneous solution 0.5 mL = 1.5 mg, Subcutaneous Injection, Every week, # 4 each, 11 Refills, Maintenance, 07/20/21 9:20:00 EDT, Solution, [facility], Partial fill upon patient request [...] 0 Refills, Maintenance, 08/23/20 11:33:00 EDT, Tablet, [facility], Partial fill upon patient request if the prescription is for a schedule II opioid drug., 16... Start Date: 08/23/20 Stop Date: 09/22/20 Status: OrderedJardiance 25 mg oral tablet 1 tablet = 25 mg, By Mouth, Daily in AM, # 30 tablet, 11 Refills, Maintenance, 10/25/20 16:03:00 EDT, Tablet, [facility], Partial fill upon patient request if the prescription is for a schedule II opioid drug., 167, cm, 10/25/20 15... Start Date: 10/25/20 Stop Date: 10/20/21 Status: OrderedLantus Solostar Pen 100 units/mL subcutaneous solution See Instructions, INJECT 50 UNITS SUBCUTANEOUSLY EVERY EVENING WITH DINNER. ROTATE INJECTION SITES.,# 15 mL, 5 Refills, 06/08/21 11:27:00 EDT, [facility], 167, cm, 05/17/21 15:37:00 EDT, Height Start Date: 06/08/21 Status: Orderedlisinopril 30 mg oral tablet See Instructions, TAKE 1 TABLET BY MOUTH EVERYDAY AT NOON, # 30 tablet, 2 Refills, [facility], 167, cm, 05/17/21 15:37:00 EDT, Height Start Date: 06/08/21 Status: OrderedmetFORMIN 1000 mg oral tablet See Instructions, TAKE 1 TABLET BY MOUTH TWICE DAILY IN THE MORNING AND AT BEDTIME, # 180 tablet, 1 Refills, 06/08/21 11:58:00 EDT, [facility], 167, cm, 05/17/21 15:37:00 EDT, Height Start Date: 06/08/21 Status: Orderedomeprazole 20 mg oral delayed release tablet 1 tablet = 20 mg, By Mouth, Daily, PRN for acid reflux, for 30 days, # 30 tablet, 11 Refills, Acute 07/15/22 9:24:00 EDT, 07/20/21 9:24:00 EDT, [facility], 167, cm, 07/20/21 8:40:00EDT, Height Start Date: 07/20/21 Stop Date: 07/15/22 Status: OrderedPen [place], 31 G x 5 mm BD Ultra [...] 0 Refills, Maintenance, 03/17/20 8:42:00 EST, Aerosol, [facility], Partial fill upon patient request if the prescription is for a schedule II opioid drug., 1 pu... Start Date: 03/17/20 Stop Date: 04/16/20 Status: Orderedsimvastatin 40 mg oral tablet 1, tablet, By Mouth, Daily at bedtime, # 90 tablet, Refills 1, Route to Pharmacy Electronically, [facility], 167, cm, 05/17/21 15:37:00 EDT, [...] AT NOON, # 30 capsule, 5 Refills, [facility], 167, cm, 02/24/21 11:47:00 EST, Height Start Date: 03/05/21 Status: Ordered Problem List Condition Effective Dates Status Health Status Informant Hypertension(Confirmed) Active Hypertriglyceridemia(Confirmed) Active Migraines(Confirmed) Active Uncontrolled type 2 diabetes Active mellitus(Confirmed) Diagnosis Diagnosis Type Effective Dates Health Clinical Infor mant Status Service Abdominal pain Discharge 07/20/21 Diagnosis Pain in right Discharge 07/20/21 shoulder Diagnosis Anxiety and Discharge 07/20/21 depression Diagnosis GERD with Discharge 07/20/21 esophagitis Diagnosis Vital Signs Most recent to oldest [Reference Range]: 1 Height 167 cm (07/20/21 8:40 AM) Weight 81.7 kg (07/20/21 8:40 AM) Body Mass Index [18.5-24.99] 29.29 *H* (07/20/21 8:40 AM) Weight Obtained Via Patient/family stated (07/20/21 8:40 AM) Social History Social History Type Response Smoking Status Never (less than 100 in life time) entered on: 06/12/18 Sex
--- OUTSIDE RECORDS SUMMARY | 2022-04-30 00:36 | XMS_ITS | Continuity of Care Document ---
:1960 Author Organization [facility] Adult Address [address] [place] [address]- Care Team Providers Name Role Phone Justin MIMS, Ly Rivers Primary Care Physician [place] [facility] [place]s): 08/23/20 - 09/22/20 [facility] [address] [place] [address]- Attending Physician: AdmTrevon britton Admitting Physician: Admtr, Trevon Referring Physician: Admtr, Ar8 Allergies, Adverse Reactions, Alerts Substance Reaction Severity Status NKA Active Immunizations Given and Recorded Vaccine Date Status Refusal Reason influenza virus vaccine, inactivated 10/15/19 Recorded influenza [...] 1Result Comment: FLU [facility] 77184-472-41 Medications amitriptyline 25 mg oral tablet 50 mg, 2, tablet, By Mouth, Daily at bedtime, 2 tab at bedtime. print in guinean please, # 60 tablet, Refills 7, Tot. Refills 7, Maintenance, 04/14/20 13:04:00 EST, Route to Pharmacy Electronically, [facility], 167, cm, 03/17/20 7... Start Date: 04/14/20 Stop Date: 12/10/20 Status: Orderedcetirizine 10 mg oral tablet 1 tablet = 10 mg, By Mouth, Daily, # 14 tablet, 0 Refills, Maintenance, 05/26/20 8:18:00 EDT, Tablet, [facility], Tristanian instructions, 167, cm, 04/19/20 9:56:00 EST, Height [...] 0 Refills, Maintenance, 08/23/20 11:33:00 EDT, Tablet, [facility], Partial fill upon patient request if the prescription is for a schedule II opioid drug., 16... Start Date: 08/23/20 Stop Date: 09/22/20 Status: OrderedJardiance 10 mg oral tablet 1 tablet, By Mouth, Daily in AM, # 30 tablet, 4 Refills, Maintenance, 07/21/20 8:45:00 EDT, [facility], 167, cm, 06/01/20 12:40:00 EDT, Height Start Date: 07/21/20 Status: OrderedLantus Solostar Pen 100 units/mL subcutaneous solution See Instructions, INJECT 45 UNITS EVERY EVENING WITH DINNER. ROTATE INJECTION SITES, # 15 mL, 3 Refills, Maintenance, [facility], 167, cm, 06/01/20 12:40:00 EDT, Height Start Date: 07/18/20 Status: Orderedlisinopril 30 mg oral tablet 1 tablet = 30 mg, By Mouth, Daily, # 30 tablet, 5 Refills, Maintenance, 05/24/20 10:42:00 EDT, Tablet, [facility], 167, cm, 04/19/20 9:56:00 EST, Height Start Date: 05/24/20 Stop Date: 11/20/20 Status: OrderedmetFORMIN 1000 mg oral tablet 1 tablet = 1,000 mg, By Mouth, 2 times a day, # 60 tablet, 5 Refills, Maintenance, 06/15/20 10:42:00EDT, Tablet, [facility], 167, cm, 06/01/20 12:40:00 EDT, Height Start Date: 06/15/20 Stop Date: 12/12/20 Status: Orderedomeprazole 20 mg oral delayed release tablet 1 tablet = 20 mg, By Mouth, Daily, # 30 tablet, 11 Refills, Maintenance, 08/17/20 13:14:00 EDT, [facility], 167, cm, 06/01/20 12:40:00 EDT, Height Start Date: 08/17/20 Stop Date: 08/12/21 Status: OrderedPen [place], 31 G x 5 mm BD Ultra [...] 0 Refills, Maintenance, 03/17/20 8:42:00 EST, Aerosol, [facility], Partial fill upon patient request if the prescription is for a schedule II opioid drug., 1 pu... Start Date: 03/17/20 Stop Date: 04/16/20 Status: Orderedsimvastatin 40 mg oral tablet 40 mg, 1, tablet, By Mouth, Daily at bedtime, # 90 tablet, Refills 1, Tot. Refills 1, Maintenance, 09/19/20 10:17:00 EDT, Route to Pharmacy Electronically, [facility], 167, cm, 06/01/20 12:40:00 EDT, Height Start Date: 09/19/20 Status: OrderedTrulicity Pen 0.75 mg/0.5 mL subcutaneous solution = 0.75 mg, Intramuscular, Every week, # 2 mL, 5 Refills, Maintenance, 05/15/20 12:22:00 EDT, [facility], 167, cm, 04/19/20 9:56:00 EST, Height [...] 30 capsule, 5 Refills, 09/07/20 10:39:00 EDT, [facility], 167, cm, 08/23/20 11:40:00 EDT, Height Start Date: 09/07/20 Status: Ordered Problem List Condition Effective Dates Status Health Status Informant Diabetes(Confirmed) Active Hypertension(Confirmed) Active Hypertriglyceridemia(Confirmed) Active Migraines(Confirmed) Active Uncontrolled type 2 diabetes Active mellitus(Confirmed) Social History Social History Type Response Smoking Status Never (less than 100 in life time) entered on: 06/12/18 Sex
--- OUTSIDE RECORDS SUMMARY | 2022-04-30 00:36 | XMS_ITS | Continuity of Care Document ---
:1960 Author Organization [facility] Address [address] [place] [phone]- Care Team Providers Name Role Phone Justin BAR MACHINE OPERATOR MULTIPLE SPINDLE, Ly Rivers Primary Care Physician [place] [facility] [place]/03/19 - 06/03/[address] [id number] [facility] Attending Physician: Jacky Berman DPM Admitting Physician: Cullen REILLY, Jacky Lara Allergies, Adverse Reactions, Alerts Substance Reaction Severity [...] Comment: FLU [facility] 41211-802-54 Medications amitriptyline 25 mg oral tablet 50 mg, 2, tablet, By Mouth, Daily at bedtime, 2 tab at bedtime. print in montserratian please, # 60 tablet, Refills 6, Tot. Refills 6, Maintenance, 04/21/19 10:06:00 EDT, Route to Pharmacy Electronically, [facility], 167, cm, 03/17... Start [...] tablet, 4 Refills, Maintenance, 04/30/19 16:56:00 EDT,Tablet, [facility], 167, cm, 04/30/19 8:51:00 EDT, Height Start Date: 04/30/19 Stop Date: 09/27/19 Status: OrderedLantus Solostar Pen 100 units/mL subcutaneous solution = 45 units, Subcutaneous Injection, Daily at bedtime, rotate injection sites with evening meal, # 15mL, 3 Refills, Maintenance, 05/12/19 14:23:00 EDT, Injection, [facility], dose increase, 167, cm, 05/12/19 13:30:00 EDT, Height Start Date: 05/12/19 Stop Date: 09/09/19 Status: Orderedlisinopril 30 mg oral tablet 1 tablet = 30 mg, By Mouth, Daily, # 30 tablet, 5 Refills, Maintenance, 05/04/19 9:58:00 EDT, Tablet, [facility], 167, cm, 04/30/19 8:51:00 EDT, Height Start Date: 05/04/19 Stop Date: 10/31/19 Status: OrderedmetFORMIN 1000 mg oral tablet 1 tablet = 1,000 mg, By Mouth, 2 times a day, # 60 tablet, 5 Refills, Maintenance, 03/09/19 14:35:00EST, Tablet, [facility] - , 167, cm, 11/18/18 14:43:00 [...] 03/09/19 14:28:00 EST, Route to Pharmacy Electronically, [facility] - , 167, cm,11/18/18 14:43:00 EDT, Height Start Date: 03/09/19 Stop Date: 09/05/19 Status: OrderedTrulicity Pen 1.5 mg/0.5 mL subcutaneous solution 0.5 mL = 1.5 mg, Subcutaneous Injection, Every week, rotate injection sites, # 2 mL, 11 Refills, Maintenance, 05/12/19 14:21:00 EDT, Solution, [facility], 167, cm, 05/12/19 13:30:00EDT, Height Start [...] 3 Refills, Maintenance, 03/09/19 11:00:00 EST, Capsule, [facility] - , 167, cm, 11/18/18 14:43:00 [...]
--- OUTSIDE RECORDS SUMMARY | 2022-04-30 00:36 | XMS_ITS | Continuity of Care Document ---
:1960 Author Organization [facility] Address [address] [place] [phone]- Care Team Providers Name Role Phone Justin MIMS, Ly Rivers Primary Care Physician [place] [facility] [id number] Date(s): 11/13/18 - 02/18/19 [facility] [address] [place] [phone]- [facility] Attending Physician: Navdeep López MD Admitting Physician: Navdeep López MD Referring Physician: Chris Anderson MD Allergies, Adverse Reactions, Alerts Substance Reaction Severity [...] to 2 tab at bedtime. print in afghan please, # 60 tablet, Refills 5, Tot. Refills 5, Maintenance, 10/17/18 10:29:25 EDT, Route to Pharmacy Electronically, [id number]... Start Date: 10/17/18 Stop Date: 04/15/19 Status: [...] 10/09/18 13:34:55 EDT, Route to Pharmacy Electronically, [id number], [facility] - Start Date: 10/09/18 Stop Date: [...]
--- OUTSIDE RECORDS SUMMARY | 2022-04-30 00:36 | XMS_ITS | Continuity of Care Document ---
:1960 Author Organization [facility] Address [address] [place] [id number]- Care Team Providers Name Role Phone Justin MIMS, Ly Rivers Primary Care Physician [place] [facility] [place] 06[place]21 [facility] [address] [place] [id number] Allergies, Adverse Reactions, Alerts No Known Allergies [...] toxoids (Td) 05/20/07 Recorded 1Result Comment: FLU [facility] [id number] Medications amitriptyline 25 mg oral tablet 2, tablet, By Mouth, Daily at bedtime, # 60 tablet, Refills 7, Route to Pharmacy Electronically, [facility], 167, cm, 10/25/20 16:32:00 EDT, Height Start Date: 11/29/20 Status: Orderedcetirizine 10 mg oral tablet 1 tablet = 10 mg, By Mouth, Daily, # 14 tablet, 0 Refills, Maintenance, 05/26/20 8:18:00 EDT, Tablet, [facility], Lao instructions, 167, cm, 04/19/20 9:56:00 EST, Height Start Date: 05/26/20 Stop Date: 06/09/20 Status: Ordereddulaglutide 1.5 mg/0.5 mL subcutaneous solution 0.5 mL = 1.5 mg, Subcutaneous Injection, Every week, # 2.5 mL, 7 Refills, Maintenance, 06/08/21 11:27:00 EDT, Solution, [facility], Partial fill upon patient request if [...] 0 Refills, Maintenance, 08/23/20 11:33:00 EDT, Tablet, [facility], Partial fill upon patient request if the prescription is for a schedule II opioid drug., 16... Start Date: 08/23/20 Stop Date: 09/22/20 Status: OrderedJardiance 25 mg oral tablet 1 tablet = 25 mg, By Mouth, Daily in AM, # 30 tablet, 11 Refills, Maintenance, 10/25/20 16:03:00 EDT, Tablet, [facility], Partial fill upon patient request if the prescription is for a schedule II opioid drug., 167, cm, 10/25/20 15... Start Date: 10/25/20 Stop Date: 10/20/21 Status: OrderedLantus Solostar Pen 100 units/mL subcutaneous solution See Instructions, INJECT 50 UNITS SUBCUTANEOUSLY EVERY EVENING WITH DINNER. ROTATE INJECTION SITES.,# 15 mL, 5 Refills, 06/08/21 11:27:00 EDT, [facility], 167, cm, 05/17/21 15:37:00 EDT, Height Start Date: 06/08/21 Status: Orderedlisinopril 30 mg oral tablet See Instructions, TAKE 1 TABLET BY MOUTH EVERYDAY AT NOON, # 30 tablet, 2 Refills, [facility], 167, cm, 05/17/21 15:37:00 EDT, Height Start Date: 06/08/21 Status: OrderedmetFORMIN 1000 mg oral tablet See Instructions, TAKE 1 TABLET BY MOUTH TWICE DAILY IN THE MORNING AND AT BEDTIME, # 180 tablet, 1 Refills, 06/08/21 11:58:00 EDT, [facility], 167, cm, 05/17/21 15:37:00 EDT, Height Start Date: 06/08/21 Status: Orderedomeprazole 20 mg oral delayed release tablet 1 tablet = 20 mg, By Mouth, Daily, # 30 tablet, 11 Refills, Maintenance, 08/17/20 13:14:00 EDT, [facility], 167, cm, 06/01/20 12:40:00 EDT, Height Start Date: 08/17/20 Stop Date: 08/12/21 Status: OrderedPen [place], 31 G x 5 mm BD Ultra [...] 0 Refills, Maintenance, 03/17/20 8:42:00 EST, Aerosol, [facility], Partial fill upon patient request if the prescription is for a schedule II opioid drug., 1 pu... Start Date: 03/17/20 Stop Date: 04/16/20 Status: Orderedsimvastatin 40 mg oral tablet 1, tablet, By Mouth, Daily at bedtime, # 90 tablet, Refills 1, Route to Pharmacy Electronically, [facility], 167, cm, 05/17/21 15:37:00 EDT, Height [...] AT NOON, # 30 capsule, 5 Refills, [facility], 167, cm, 02/24/21 11:47:00 EST, Height Start Date: 03/05/21 Status: Ordered Problem List Condition Effective Dates Status Health Status Informant Hypertension(Confirmed) Active Hypertriglyceridemia(Confirmed) Active Migraines(Confirmed) Active Uncontrolled type 2 diabetes Active mellitus(Confirmed) Social History Social History Type Response Smoking Status Never (less than 100 in life time) entered on: 06/12/18 Sex
--- OUTSIDE RECORDS SUMMARY | 2022-04-30 00:36 | XMS_ITS | Continuity of Care Document ---
:1960 Author Organization [facility] Adult Address [address] [place] [address]- Care Team Providers Name Role Phone Justin MIMS, Ly Rivers Primary Care Physician [place] [facility] [place] 09/18/21 [facility] [address] [place] [id number]- Encounter Diagnosis Facial rash (Discharge Diagnosis) - 09/11/21 Foot pain (Discharge Diagnosis) - 09/11/21 MDD (major depressive disorder), recurrent severe, without psychosis (Discharge Diagnosis) - 09/11/21 Attending Physician: Solis Hernandez MD Allergies, Adverse Reactions, Alerts No Known Allergies [...] 1Result Comment: FLU [facility] [id number] Medications amitriptyline 25 mg oral tablet 2, tablet, By Mouth, Daily at bedtime, # 60 tablet, Refills 7, Route to Pharmacy Electronically, [facility], 167, cm, 08/03/21 14:26:00 EDT, Height Start Date: 08/15/21 Status: Orderedcetirizine 10 mg oral tablet 1 tablet = 10 mg, By Mouth, Daily, # 14 tablet, 0 Refills, Maintenance, 05/26/20 8:18:00 EDT, Tablet, [facility], [place] instructions, 167, cm, 04/19/20 9:56:00 EST, Height Start Date: 05/26/20 Stop Date: 06/09/20 Status: Ordereddulaglutide 1.5 mg/0.5 mL subcutaneous solution 0.5 mL = 1.5 mg, Subcutaneous Injection, Every week, # 4 each, 11 Refills, Maintenance, 07/20/21 9:20:00 EDT, Solution, [facility], Partial fill upon patient request [...] 0 Refills, Maintenance, 08/16/21 16:27:00 EDT, Ointment, [facility],... Start Date: 08/16/21 Status: OrderedhydrOXYzine hydrochloride 25 mg oral tablet 1 tablet = 25 mg, By Mouth, 3 times a day, PRN for itching, # 90 tablet, 0 Refills, Maintenance, 08/23/20 11:33:00 EDT, Tablet, [facility], Partial fill upon patient request if the prescription is for a schedule II opioid drug., 16... Start Date: 08/23/20 Stop Date: 09/22/20 Status: OrderedJardiance 25 mg oral tablet 1 tablet = 25 mg, By Mouth, Daily in AM, # 30 tablet, 11 Refills, Maintenance, 10/25/20 16:03:00 EDT, Tablet, [facility], Partial fill upon patient request if the prescription is for a schedule II opioid drug., 167, cm, 10/25/20 15... Start Date: 10/25/20 Stop Date: 10/20/21 Status: OrderedLantus Solostar Pen 100 units/mL subcutaneous solution See Instructions, INJECT 50 UNITS SUBCUTANEOUSLY EVERY EVENING WITH DINNER. ROTATE INJECTION SITES.,# 15 mL, 5 Refills, 06/08/21 11:27:00 EDT, [facility], 167, cm, 05/17/21 15:37:00 EDT, Height Start Date: 06/08/21 Status: Orderedlisinopril 30 mg oral tablet See Instructions, TAKE 1 TABLET BY MOUTH EVERYDAY AT NOON, # 30 tablet, 2 Refills, [facility], 167, cm, 08/16/21 16:12:00 EDT, Height Start Date: 09/07/21 Status: OrderedmetFORMIN 1000 mg oral tablet See Instructions, TAKE 1 TABLET BY MOUTH TWICE DAILY IN THE MORNING AND AT BEDTIME, # 180 tablet, 1 Refills, 06/08/21 11:58:00 EDT, [facility], 167, cm, 05/17/21 15:37:00 EDT, Height Start Date: 06/08/21 Status: OrderedMetroCream 0.75% topical cream 1 application, Topically, 2 times a day, to facial rash, after washing, # 45 Gm, 0 Refills, Maintenance, 09/11/21 11:03:00 EDT, Cream, [facility], Partial fill upon patient request if the prescription is for a schedule II opioid dr... Start Date: 09/11/21 Status: Orderedomeprazole 20 mg oral delayed release tablet 1 tablet = 20 mg, By Mouth, Daily, PRN for acid reflux, for 30 days, # 30 tablet, 11 Refills, Acute 07/15/22 9:24:00 EDT, 07/20/21 9:24:00 EDT, [facility], 167, cm, 07/20/21 8:40:00EDT, Height Start Date: 07/20/21 Stop Date: 07/15/22 Status: OrderedPen [place], 31 G x 5 mm BD Ultra [...] 0 Refills, Maintenance, 03/17/20 8:42:00 EST, Aerosol, [facility], Partial fill upon patient request if the prescription is for a schedule II opioid drug., 1 pu... Start Date: 03/17/20 Stop Date: 04/16/20 Status: Orderedsimvastatin 40 mg oral tablet 1, tablet, By Mouth, Daily at bedtime, # 90 tablet, Refills 1, Route to Pharmacy Electronically, [facility], 167, cm, 05/17/21 15:37:00 EDT, [...] 30 capsule, 5 Refills, 09/07/21 15:33:00 EDT, [facility], 167, cm, 08/16/21 16:12:00 EDT, Height Start Date: 09/07/21 Status: Ordered Problem List Condition Effective Dates Status Health Status Informant Hypertension(Confirmed) Active Hypertriglyceridemia(Confirmed) Active Migraines(Confirmed) Active MDD (major depressive disorder), Active recurrent severe, 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) Uncontrolled type 2 diabetes Active mellitus(Confirmed) Diagnosis Diagnosis Type Effective Dates Health Clinical Infor mant Status Service Facial rash Discharge 09/11/21 Diagnosis Foot pain Discharge 09/11/21 Diagnosis MDD (major Discharge 09/11/21 depressive Diagnosis disorder), recurrent severe, without psychosis Vital Signs Most recent to oldest [Reference Range]: 1 Height 167 cm (09/11/21 10:23 AM) Weight 77.9 kg (09/11/21 10:23 AM) Oxygen Saturation [94-100 %] 99 % (09/11/21 10:23 AM) Pulse Rate [55-90 bpm] 92 bpm *H* (09/11/21 10:23 AM) Body Mass Index [18.5-24.99] 27.93 *H* (09/11/21 10:23 AM) Blood Pressure [90-138/55-84 mm Hg] 119/71 mm Hg (09/11/21 10:23 AM) Mode of Delivery (Oxygen) Room air (09/11/21 10:23 AM) Blood pressure sites Arm, left (09/11/21 10:23 AM) Weight Obtained Via Standing scale (09/11/21 10:23 AM) Social History Social History Type Response Smoking Status Never (less than 100 in life time) entered on: 06/12/18 Sex
--- OUTSIDE RECORDS SUMMARY | 2022-04-30 00:36 | XMS_ITS | Continuity of Care Document ---
:1960 Author Organization [facility] Address [address] [place] [address]- Care Team Providers Name Role Phone Justin MIMS, Ly Rivers Primary Care Physician [id number] Date(s): 12/13/20 - 04/12/21 [facility] [address] [place] [address]- Attending Physician: Reji Moore MD Admitting Physician: Reji Moore MD Referring Physician: Ly Anderson NP Allergies, [...] toxoids (Td) 05/20/07 Recorded 1Result Comment: FLU [facility] [id number] Medications amitriptyline 25 mg oral tablet 2, tablet, By Mouth, Daily at bedtime, # 60 tablet, Refills 7, Route to Pharmacy Electronically, [facility], 167, cm, 10/25/20 16:32:00 EDT, Height Start Date: 11/29/20 Status: Orderedcetirizine 10 mg oral tablet 1 tablet = 10 mg, By Mouth, Daily, # 14 tablet, 0 Refills, Maintenance, 05/26/20 8:18:00 EDT, Tablet, [facility], [place] instructions, 167, cm, 04/19/20 9:56:00 EST, Height [...] 0 Refills, Maintenance, 08/23/20 11:33:00 EDT, Tablet, [facility], Partial fill upon patient request if the prescription is for a schedule II opioid drug., 16... Start Date: 08/23/20 Stop Date: 09/22/20 Status: OrderedJardiance 25 mg oral tablet 1 tablet = 25 mg, By Mouth, Daily in AM, # 30 tablet, 11 Refills, Maintenance, 10/25/20 16:03:00 EDT, Tablet, [facility], Partial fill upon patient request if the prescription is for a schedule II opioid drug., 167, cm, 10/25/20 15... Start Date: 10/25/20 Stop Date: 10/20/21 Status: OrderedLantus Solostar Pen 100 units/mL subcutaneous solution See Instructions, INJECT 45 UNITS SUBCUTANEOUSLY EVERY EVENING WITH DINNER. ROTATE INJECTION SITES.,# 15 mL, 5 Refills, [facility], 167, cm, 02/01/21 13:19:00 EST, Height Start Date: 02/11/21 Status: Orderedlisinopril 30 mg oral tablet See Instructions, TAKE 1 TABLET BY MOUTH EVERYDAY AT NOON, # 30 tablet, 3 Refills, [facility], 167, cm, 02/01/21 13:19:00 EST, Height Start Date: 02/09/21 Status: OrderedmetFORMIN 1000 mg oral tablet See Instructions, TAKE 1 TABLET BY MOUTH TWICE DAILY IN THE MORNING AND AT BEDTIME, # 60 tablet, 5 Refills, [facility], 167, cm, 10/25/20 16:32:00 EDT, Height Start Date: 11/29/20 Status: Orderednaproxen 500 mg oral tablet 1 tablet = 500 mg, By Mouth, 2 times a day, for 30 days, # 60 tablet, 0 Refills, Acute 04/15/21 15:10:00 EST, 03/16/21 15:10:00 EST, Tablet, [facility], Partial fill upon patient request if the prescription is for a schedule II opi... Start Date: 03/16/21 Stop Date: 04/15/21 Status: Orderedomeprazole 20 mg oral delayed release tablet 1 tablet = 20 mg, By Mouth, Daily, # 30 tablet, 11 Refills, Maintenance, 08/17/20 13:14:00 EDT, [facility], 167, cm, 06/01/20 12:40:00 EDT, Height Start Date: 08/17/20 Stop Date: 08/12/21 Status: OrderedPen [place], 31 G x 5 mm BD Ultra [...] 0 Refills, Maintenance, 03/17/20 8:42:00 EST, Aerosol, [facility], Partial fill upon patient request if the prescription is for a schedule II opioid drug., 1 pu... Start Date: 03/17/20 Stop Date: 04/16/20 Status: Orderedsimvastatin 40 mg oral tablet 1, tablet, By Mouth, Daily at bedtime, # 90 tablet, Refills 1, Route to Pharmacy Electronically, [facility], 167, cm, 10/25/20 16:32:00 EDT, Height Start Date: 12/28/20 Status: OrderedTrulicity Pen 0.75 mg/0.5 mL subcutaneous solution = 0.75 mg, Intramuscular, Every week, # 2 mL, 5 Refills, Maintenance, 11/11/20 11:26:00 EDT, [facility], 167, cm, 10/25/20 16:32:00 EDT, Height [...] AT NOON, # 30 capsule, 5 Refills, [facility], 167, cm, 02/24/21 11:47:00 EST, Height Start Date: 03/05/21 Status: Ordered Problem List Condition Effective Dates Status Health Status Informant Hypertension(Confirmed) Active Hypertriglyceridemia(Confirmed) Active Migraines(Confirmed) Active Uncontrolled type 2 diabetes Active mellitus(Confirmed) Social History Social History Type Response Smoking Status Never (less than 100 in life time) entered on: 06/12/18 Sex
--- OUTSIDE RECORDS SUMMARY | 2022-04-30 00:36 | XMS_ITS | Continuity of Care Document ---
:1960 Author Organization [facility] Adult Address [address] [place] [address]- Care Team Providers Name Role Phone Justin MIMS, Ly Rivers Primary Care Physician [phone] [place] [facility] [place]s): 08/25/19 - 09/24/19 [facility] [address] [place] [address] [facility] [...] FLU [facility] [id number] Medications amitriptyline 25 mg oral tablet 50 mg, 2, tablet, By Mouth, Daily at bedtime, 2 tab at bedtime. print in tuvaluan please, # 60 tablet, Refills 6, Tot. Refills 6, Maintenance, 04/21/19 10:06:00 EDT, Route to Pharmacy Electronically, [facility] - , 167, cm, 03/17... Start Date: 04/21/19 Stop [...] tablet, 4 Refills, Maintenance, 09/23/19 11:28:00 EDT,Tablet, [facility], 167, cm, 08/21/19 16:17:00 EDT, Height Start Date: 09/23/19 Stop Date: 02/20/20 Status: OrderedLantus Solostar Pen 100 units/mL subcutaneous solution = 45 units, Subcutaneous Injection, Daily at bedtime, rotate injection sites with evening meal, # 15mL, 3 Refills, Maintenance, 05/12/19 14:23:00 EDT, Injection, [facility], dose increase, 167, cm, 05/12/19 13:30:00 EDT, Height Start Date: 05/12/19 Stop Date: 09/09/19 Status: Orderedlisinopril 30 mg oral tablet 1 tablet = 30 mg, By Mouth, Daily, # 30 tablet, 5 Refills, Maintenance, 05/04/19 9:58:00 EDT, Tablet, [facility], 167, cm, 04/30/19 8:51:00 EDT, Height Start Date: 05/04/19 Stop Date: 10/31/19 Status: OrderedmetFORMIN 1000 mg oral tablet 1 tablet = 1,000 mg, By Mouth, 2 times a day, # 60 tablet, 5 Refills, Maintenance, 03/09/19 14:35:00EST, Tablet, [facility] - , 167, cm, 11/18/18 14:43:00 EDT, Height Start Date: 03/09/19 Stop Date: 09/05/19 Status: Orderedomeprazole 20 mg oral delayed release tablet 1 tablet = 20 mg, By Mouth, Daily, # 30 tablet, 11 Refills, Maintenance, 09/03/19 21:29:00 EDT, [facility], 167, cm, 08/21/19 16:17:00 EDT, Height Start Date: 09/03/19 Stop Date: 08/28/20 Status: Orderedsimvastatin 40 mg oral tablet 40 mg, 1, tablet, By Mouth, Daily at bedtime, # 30 tablet, Refills 5, Tot. Refills 5, Maintenance, 03/09/19 14:28:00 EST, Route to Pharmacy Electronically, [facility] - , 167, cm,11/18/18 14:43:00 EDT, Height Start Date: 03/09/19 Stop Date: 09/05/19 Status: OrderedTrulicity Pen 0.75 mg/0.5 mL subcutaneous solution 0.5 mL = 0.75 mg, Subcutaneous Injection, Every week, for 30 days, # 4 each, 3 Refills, Hard Stop 12/24/19 10:14:00 EST, 08/26/19 10:14:00 EDT, Solution, [facility], 167, cm, 08/21/19 16:17:00 EDT, Height Start Date: 08/26/19 Stop Date: 12/24/19 Status: OrderedTrulicity Pen 1.5 mg/0.5 mL subcutaneous solution 0.5 mL = 1.5 mg, Subcutaneous Injection, Every week, rotate injection sites, # 2 mL, 11 Refills, Maintenance, 05/12/19 14:21:00 EDT, Solution, [facility], 167, cm, 05/12/19 13:30:00EDT, Height [...] Refills, Maintenance, 07/01/19 14:51:00 EDT, Capsule, [facility], 167, cm, 05/12/19 13:30:00 EDT, [...]
--- OUTSIDE RECORDS SUMMARY | 2022-04-30 00:36 | XMS_ITS | Continuity of Care Document ---
:1960 Author Organization [facility] Address [address] [place] [address]- Care Team Providers Name Role Phone Justin MIMS, Ly Rivers Primary Care Physician [phone] [facility] [place] Date(s): 09/28/21 - 10/05/[address] [address]- Encounter Diagnosis Bereavement (Discharge Diagnosis) - 09/28/21 Depression (Discharge Diagnosis) - 09/28/21 Attending Physician: Ly Anderson NP Allergies, Adverse [...] Recorded 1Result Comment: FLU [facility] [id number] Medications amitriptyline 25 mg oral tablet 2, tablet, By Mouth, Daily at bedtime, # 60 tablet, Refills 7, Route to Pharmacy Electronically, [facility], 167, cm, 08/03/21 14:26:00 EDT, Height Start Date: 08/15/21 Status: Orderedcetirizine 10 mg oral tablet 1 tablet = 10 mg, By Mouth, Daily, # 14 tablet, 0 Refills, Maintenance, 05/26/20 8:18:00 EDT, Tablet, [facility], Telugu instructions, 167, cm, 04/19/20 9:56:00 EST, Height Start Date: 05/26/20 Stop Date: 06/09/20 Status: Ordereddulaglutide 1.5 mg/0.5 mL subcutaneous solution 0.5 mL = 1.5 mg, Subcutaneous Injection, Every week, # 4 each, 11 Refills, Maintenance, 07/20/21 9:20:00 EDT, Solution, [facility], Partial fill upon patient request [...] 0 Refills, Maintenance, 08/16/21 16:27:00 EDT, Ointment, [facility],... Start Date: 08/16/21 Status: OrderedhydrOXYzine hydrochloride 25 mg oral tablet 1 tablet = 25 mg, By Mouth, 3 times a day, PRN for itching, # 90 tablet, 0 Refills, Maintenance, 08/23/20 11:33:00 EDT, Tablet, [facility], Partial fill upon patient request if the prescription is for a schedule II opioid drug., 16... Start Date: 08/23/20 Stop Date: 09/22/20 Status: OrderedJardiance 25 mg oral tablet 1 tablet = 25 mg, By Mouth, Daily in AM, # 30 tablet, 11 Refills, Maintenance, 10/25/20 16:03:00 EDT, Tablet, [facility], Partial fill upon patient request if the prescription is for a schedule II opioid drug., 167, cm, 10/25/20 15... Start Date: 10/25/20 Stop Date: 10/20/21 Status: OrderedLantus Solostar Pen 100 units/mL subcutaneous solution See Instructions, INJECT 50 UNITS SUBCUTANEOUSLY EVERY EVENING WITH DINNER. ROTATE INJECTION SITES.,# 15 mL, 5 Refills, 06/08/21 11:27:00 EDT, [facility], 167, cm, 05/17/21 15:37:00 EDT, Height Start Date: 06/08/21 Status: Orderedlisinopril 30 mg oral tablet See Instructions, TAKE 1 TABLET BY MOUTH EVERYDAY AT NOON, # 30 tablet, 2 Refills, [facility], 167, cm, 08/16/21 16:12:00 EDT, Height Start Date: 09/07/21 Status: OrderedmetFORMIN 1000 mg oral tablet See Instructions, TAKE 1 TABLET BY MOUTH TWICE DAILY IN THE MORNING AND AT BEDTIME, # 180 tablet, 1 Refills, 06/08/21 11:58:00 EDT, [facility], 167, cm, 05/17/21 15:37:00 EDT, Height Start Date: 06/08/21 Status: OrderedMetroCream 0.75% topical cream 1 application, Topically, 2 times a day, to facial rash, after washing, # 45 Gm, 0 Refills, Maintenance, 09/11/21 11:03:00 EDT, Cream, [facility], Partial fill upon patient request if the prescription is for a schedule II opioid drKaye. Start Date: 09/11/21 Status: Orderedomeprazole 20 mg oral delayed release tablet 1 tablet = 20 mg, By Mouth, Daily, PRN for acid reflux, for 30 days, # 30 tablet, 11 Refills, Acute 07/15/22 9:24:00 EDT, 07/20/21 9:24:00 EDT, [facility], 167, cm, 07/20/21 8:40:00EDT, Height Start Date: 07/20/21 Stop Date: 07/15/22 Status: OrderedPen [place], 31 G x 5 mm BD Ultra [...] 0 Refills, Maintenance, 03/17/20 8:42:00 EST, Aerosol, [facility], Partial fill upon patient request if the prescription is for a schedule II opioid drug., 1 pu... Start Date: 03/17/20 Stop Date: 04/16/20 Status: Orderedsertraline 25 mg oral tablet 1 tablet = 25 mg, By Mouth, Daily, # 30 tablet, 6 Refills, Maintenance, 09/28/21 9:11:00 EDT, Tablet, [facility], Partial fill upon patient request if the prescription is for a schedule II opioid drug., 167, cm, 09/11/21 10:23:00 E... Start Date: 09/28/21 Stop Date: 04/26/22 Status: Orderedsimvastatin 40 mg oral tablet 1, tablet, By Mouth, Daily at bedtime, # 90 tablet, Refills 1, Route to Pharmacy Electronically, [facility], 167, cm, 05/17/21 15:37:00 EDT, Height [...] 30 capsule, 5 Refills, 09/07/21 15:33:00 EDT, [facility], 167, cm, 08/16/21 16:12:00 EDT, Height Start Date: 09/07/21 Status: Ordered Problem List Condition Effective Dates Status Health Status Informant Hypertension(Confirmed) Active Hypertriglyceridemia(Confirmed) Active Migraines(Confirmed) Active MDD (major depressive disorder), Active recurrent severe, 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
--- OUTSIDE RECORDS SUMMARY | 2022-04-30 00:36 | XMS_ITS | Continuity of Care Document ---
:1960 Author Organization [facility] Address [address] [place] [address], 3rd Floor, [address] [place] [id number]- Care Team Providers Name Role Phone Justin MIMS, Ly Rivers Primary Care Physician [phone] Encounter [facility] [place] ACCT R [id number] Date(s): 10/22/18 - 02/19/19 [facility] [address] [facility], 3rd Floor, [address] [place] [address]- [facility] Attending Physician: Sang Rushing MD Referring Physician: Ly Anderson NP Allergies, [...] to 2 tab at bedtime. print in yoruba please, # 60 tablet, Refills 5, Tot. Refills 5, Maintenance, 10/17/18 10:29:25 EDT, Route to Pharmacy Electronically, [id number]... Start Date: 10/17/18 Stop Date: 04/15/19 Status: [...] 10/09/18 13:34:55 EDT, Route to Pharmacy Electronically, [id number], [facility] - Start Date: 10/09/18 Stop [...]
--- OUTSIDE RECORDS SUMMARY | 2022-04-30 00:37 | XMS_ITS | Continuity of Care Document ---
:1960 Author Organization [facility] Address [address] [place] [address]- Care Team Providers Name Role Phone Justin MIMS, Ly Rivers Primary Care Physician [phone] Encounter [facility] [place] Date(s): 10/13/19 - 11/12/19 [facility] [address] [place] [address]- [facility] Allergies, Adverse Reactions, Alerts Substance Reaction Severity [...] toxoids (Td) 05/20/07 Recorded 1Result Comment: FLU [facility] [id number] Medications amitriptyline 25 mg oral tablet 50 mg, 2, tablet, By Mouth, Daily at bedtime, 2 tab at bedtime. print in south african please, # 60 tablet, Refills 7, Tot. Refills 7, Maintenance, 10/15/19 13:03:00 EDT, Route to Pharmacy Electronically, [facility], 167, cm, 10/15/19 1... Start [...] tablet, 4 Refills, Maintenance, 09/23/19 11:28:00 EDT,Tablet, [facility], 167, cm, 08/21/19 16:17:00 EDT, Height Start Date: 09/23/19 Stop Date: 02/20/20 Status: OrderedLantus Solostar Pen 100 units/mL subcutaneous solution = 45 units, Subcutaneous Injection, Daily at bedtime, rotate injection sites with evening meal, # 15mL, 3 Refills, Maintenance, 09/25/19 8:59:00 EDT, Injection, [facility], dose increase, 167, cm, 08/21/19 16:17:00 EDT, Height Start Date: 09/25/19 Stop Date: 01/23/20 Status: Orderedlisinopril 30 mg oral tablet 1 tablet = 30 mg, By Mouth, Daily, # 30 tablet, 5 Refills, Maintenance, 05/04/19 9:58:00 EDT, Tablet, [facility], 167, cm, 04/30/19 8:51:00 EDT, Height Start Date: 05/04/19 Stop Date: 10/31/19 Status: OrderedmetFORMIN 1000 mg oral tablet 1 tablet = 1,000 mg, By Mouth, 2 times a day, # 60 tablet, 5 Refills, Maintenance, 10/02/19 13:18:00EDT, Tablet, [facility], 167, cm, 08/21/19 16:17:00 EDT, Height Start Date: 10/02/19 Stop Date: 03/30/20 Status: Orderedomeprazole 20 mg oral delayed release tablet 1 tablet = 20 mg, By Mouth, Daily, # 30 tablet, 11 Refills, Maintenance, 09/03/19 21:29:00 EDT, [facility], 167, cm, 08/21/19 16:17:00 EDT, Height Start Date: 09/03/19 Stop Date: 08/28/20 Status: OrderedPen [place], 31 G x 5 mm BD Ultra [...] 09/29/19 14:25:00 EDT, Route to Pharmacy Electronically, [facility], 167, cm, 08/21/19 16:17:00 EDT, Height Start Date: 09/29/19 Stop Date: 03/27/20 Status: OrderedTrulicity Pen 0.75 mg/0.5 mL subcutaneous solution = 0.75 mg, Intramuscular, Every week, # 4 each, 3 Refills, Maintenance, 10/13/19 17:07:00 EDT, [facility], 167, cm, 10/13/19 14:02:00 EDT, [...] 3 Refills, Maintenance, 07/01/19 14:51:00 EDT, Capsule, [facility], 167, cm, 05/12/19 13:30:00 EDT, [...]
--- OUTSIDE RECORDS SUMMARY | 2022-04-30 00:37 | XMS_ITS | Continuity of Care Document ---
:1960 Author Organization [facility] Address [address] [place] [address]- Care Team Providers Name Role Phone Ly Anderson NP Primary Care Physician Encounter [facility] [place] Date(s): 07/31/19 - 08/07/19 [facility] [address] [place] [address]- [facility] Attending Physician: Ly Anderson NP Allergies, Adverse [...] Comment: FLU [facility] [id number] Medications amitriptyline 25 mg oral tablet 50 mg, 2, tablet, By Mouth, Daily at bedtime, 2 tab at bedtime. print in kazakh please, # 60 tablet, Refills 6, Tot. Refills 6, Maintenance, 04/21/19 10:06:00 EDT, Route to Pharmacy Electronically, [facility], 167, cm, [...] tablet, 4 Refills, Maintenance, 04/30/19 16:56:00 EDT,Tablet, [facility], 167, cm, 04/30/19 8:51:00 EDT, Height Start Date: 04/30/19 Stop Date: 09/27/19 Status: OrderedLantus Solostar Pen 100 units/mL subcutaneous solution = 45 units, Subcutaneous Injection, Daily at bedtime, rotate injection sites with evening meal, # 15mL, 3 Refills, Maintenance, 05/12/19 14:23:00 EDT, Injection, [facility], dose increase, 167, cm, 05/12/19 13:30:00 EDT, Height Start Date: 05/12/19 Stop Date: 09/09/19 Status: Orderedlisinopril 30 mg oral tablet 1 tablet = 30 mg, By Mouth, Daily, # 30 tablet, 5 Refills, Maintenance, 05/04/19 9:58:00 EDT, Tablet, [facility], 167, cm, 04/30/19 8:51:00 EDT, Height Start Date: 05/04/19 Stop Date: 10/31/19 Status: OrderedmetFORMIN 1000 mg oral tablet 1 tablet = 1,000 mg, By Mouth, 2 times a day, # 60 tablet, 5 Refills, Maintenance, 03/09/19 14:35:00EST, Tablet, [facility], 167, cm, 11/18/18 14:43:00 [...] 03/09/19 14:28:00 EST, Route to Pharmacy Electronically, [facility] - , 167, cm,11/18/18 14:43:00 EDT, Height Start Date: 03/09/19 Stop Date: 09/05/19 Status: OrderedTrulicity Pen 1.5 mg/0.5 mL subcutaneous solution 0.5 mL = 1.5 mg, Subcutaneous Injection, Every week, rotate injection sites, # 2 mL, 11 Refills, Maintenance, 05/12/19 14:21:00 EDT, Solution, [facility], 167, cm, 05/12/19 13:30:00EDT, [...] 3 Refills, Maintenance, 07/01/19 14:51:00 EDT, Capsule, [facility], 167, cm, 05/12/19 13:30:00 EDT, Height Start Date: 07/01/19 Stop Date: 10/29/19 Status: Ordered Problem List Condition Effective Dates Status Health Status Informant Diabetes(Confirmed) Active Hypertension(Confirmed) Active Hypertriglyceridemia(Confirmed) Active Migraines(Confirmed) Active Uncontrolled type 2 diabetes Active mellitus(Confirmed) Vital Signs Most recent to oldest [Reference Range]: 1 Height 167 cm (07/31/19 11:41 AM) Social History Social History Type Response Smoking Status Never (less than 100 in life time) entered on: 06/12/18 Sex
--- OUTSIDE RECORDS SUMMARY | 2022-04-30 00:37 | XMS_ITS | Continuity of Care Document ---
:1960 Author Organization [facility] Address [address] [place] [address]- Care Team Providers Name Role Phone Justin MIMS, Ly Rivers Primary Care Physician [phone] [place] [facility] [place]s): 09/28/21 - 10/28/21 [facility] [address] [place] [address]- Attending Physician: Trevon Walls Admitting Physician: AdmTrevon britton Referring Physician: Admtr, Ar8 Allergies, Adverse Reactions, [...] 05/20/07 Recorded 1Result Comment: FLU [facility] [id number] Medications amitriptyline 25 mg oral tablet 2, tablet, By Mouth, Daily at bedtime, # 60 tablet, Refills 7, Route to Pharmacy Electronically, [facility], 167, cm, 06/23/22 14:26:00 EDT, Height Start Date: 08/15/21 Status: Orderedcetirizine 10 mg oral tablet 1 tablet = 10 mg, By Mouth, Daily, # 14 tablet, 0 Refills, Maintenance, 05/26/20 8:18:00 EDT, Tablet, [facility], [place] instructions, 167, cm, 04/19/20 9:56:00 EST, Height Start Date: 05/26/20 Stop Date: 06/09/20 Status: Ordereddulaglutide 1.5 mg/0.5 mL subcutaneous solution 0.5 mL = 1.5 mg, Subcutaneous Injection, Every week, # 4 each, 11 Refills, Maintenance, 07/20/21 9:20:00 EDT, Solution, [facility], Partial fill upon patient [...] 0 Refills, Maintenance, 08/16/21 16:27:00 EDT, Ointment, [facility],... Start Date: 08/16/21 Status: OrderedhydrOXYzine hydrochloride 25 mg oral tablet 1 tablet = 25 mg, By Mouth, 3 times a day, PRN for itching, # 90 tablet, 0 Refills, Maintenance, 08/23/20 11:33:00 EDT, Tablet, [facility], Partial fill upon patient request if the prescription is for a schedule II opioid drug., 16... Start Date: 08/23/20 Stop Date: 09/22/20 Status: OrderedJardiance 25 mg oral tablet 1 tablet = 25 mg, By Mouth, Daily in AM, # 30 tablet, 11 Refills, Maintenance, 10/25/20 16:03:00 EDT, Tablet, [facility], Partial fill upon patient request if the prescription is for a schedule II opioid drug., 167, cm, 10/25/20 15... Start Date: 10/25/20 Stop Date: 10/20/21 Status: OrderedLantus Solostar Pen 100 units/mL subcutaneous solution See Instructions, INJECT 50 UNITS SUBCUTANEOUSLY EVERY EVENING WITH DINNER. ROTATE INJECTION SITES.,# 15 mL, 5 Refills, 06/08/21 11:27:00 EDT, [facility], 167, cm, 05/17/21 15:37:00 EDT, Height Start Date: 06/08/21 Status: Orderedlisinopril 30 mg oral tablet See Instructions, TAKE 1 TABLET BY MOUTH EVERYDAY AT NOON, # 30 tablet, 2 Refills, [facility], 167, cm, 08/16/21 16:12:00 EDT, Height Start Date: 09/07/21 Status: OrderedmetFORMIN 1000 mg oral tablet See Instructions, TAKE 1 TABLET BY MOUTH TWICE DAILY IN THE MORNING AND AT BEDTIME, # 180 tablet, 1 Refills, 06/08/21 11:58:00 EDT, [facility], 167, cm, 05/17/21 15:37:00 EDT, Height Start Date: 06/08/21 Status: OrderedMetroCream 0.75% topical cream 1 application, Topically, 2 times a day, to facial rash, after washing, # 45 Gm, 0 Refills, Maintenance, 09/11/21 11:03:00 EDT, Cream, [facility], Partial fill upon patient request if the prescription is for a schedule II opioid drMalka.. Start Date: 09/11/21 Status: Orderedomeprazole 20 mg oral delayed release tablet 1 tablet = 20 mg, By Mouth, Daily, PRN for acid reflux, for 30 days, # 30 tablet, 11 Refills, Acute 07/15/22 9:24:00 EDT, 07/20/21 9:24:00 EDT, [facility], 167, cm, 07/20/21 8:40:00EDT, Height Start Date: 07/20/21 Stop Date: 07/15/22 Status: OrderedPen [place], 31 G x 5 mm BD Ultra [...] 0 Refills, Maintenance, 03/17/20 8:42:00 EST, Aerosol, [facility], Partial fill upon patient request if the prescription is for a schedule II opioid drug., 1 pu... Start Date: 03/17/20 Stop Date: 04/16/20 Status: Orderedsertraline 25 mg oral tablet 1 tablet = 25 mg, By Mouth, Daily, # 30 tablet, 6 Refills, Maintenance, 09/28/21 9:11:00 EDT, Tablet, [facility], Partial fill upon patient request if the prescription is for a schedule II opioid drug., 167, cm, 09/11/21 10:23:00 E... Start Date: 09/28/21 Stop Date: 04/26/22 Status: Orderedsimvastatin 40 mg oral tablet 1, tablet, By Mouth, Daily at bedtime, # 90 tablet, Refills 1, Route to Pharmacy Electronically, [facility], 167, cm, 05/17/21 15:37:00 EDT, Height Start Date: 06/01/21 Status: OrderedTrulicity Pen 1.5 mg/0.5 mL subcutaneous solution 0.5 mL = 1.5 mg, Subcutaneous Injection, Every week, rotate injection sites, # 2.5 mL, 11 Refills, Maintenance, 10/20/21 11:38:00 EDT, Solution, [facility], Partial fill upon patient request if the prescription is for a schedule II... Start Date: 10/20/21 Stop Date: 10/15/22 Status: OrderedUlticare pen needles 4mm 32g Ulticare pen needles 4mm 32g, See Instructions, # 200 each, Refills 2, Tot. Refills 2, Maintenance, use daily to test blood sugars dx e11.6, 10/09/18 16:44:57 EDT, Compound Start Date: 10/09/18 Status: OrderedVitamin D3 2000 intl units oral capsule See Instructions, TAKE 1 CAPSULE BY MOUTH EVERYDAY AT NOON, # 30 capsule, 5 Refills, 09/07/21 15:33:00 EDT, [facility], 167, cm, 08/16/21 16:12:00 EDT, [...] Team PersonnelName: Justin MIMS, Ly Rivers Address: [address]rd [address] [place], [place] [address] [[email or web address]]
--- OUTSIDE RECORDS SUMMARY | 2022-04-30 00:37 | XMS_ITS | Continuity of Care Document ---
:1960 Author Organization [facility] Address [address] [place] [address]- Care Team Providers Name Role Phone Justin MIMS, Ly Rivers Primary Care Physician [place] [facility] [place] Date(s): 06/08/21 - 07/08/21 [facility] [address] [place] [address]- Allergies, Adverse Reactions, Alerts No Known Allergies [...] (Td) 05/20/07 Recorded 1Result Comment: FLU [facility] [id number] Medications amitriptyline 25 mg oral tablet 2, tablet, By Mouth, Daily at bedtime, # 60 tablet, Refills 7, Route to Pharmacy Electronically, [facility], 167, cm, 10/25/20 16:32:00 EDT, Height Start Date: 11/29/20 Status: Orderedcetirizine 10 mg oral tablet 1 tablet = 10 mg, By Mouth, Daily, # 14 tablet, 0 Refills, Maintenance, 05/26/20 8:18:00 EDT, Tablet, [facility], [place] instructions, 167, cm, 04/19/20 9:56:00 EST, Height Start Date: 05/26/20 Stop Date: 06/09/20 Status: Ordereddulaglutide 1.5 mg/0.5 mL subcutaneous solution 0.5 mL = 1.5 mg, Subcutaneous Injection, Every week, # 2.5 mL, 7 Refills, Maintenance, 06/08/21 11:27:00 EDT, Solution, [facility], Partial fill upon patient [...] 0 Refills, Maintenance, 08/23/20 11:33:00 EDT, Tablet, [facility], Partial fill upon patient request if the prescription is for a schedule II opioid drug., 16... Start Date: 08/23/20 Stop Date: 09/22/20 Status: OrderedJardiance 25 mg oral tablet 1 tablet = 25 mg, By Mouth, Daily in AM, # 30 tablet, 11 Refills, Maintenance, 10/25/20 16:03:00 EDT, Tablet, [facility], Partial fill upon patient request if the prescription is for a schedule II opioid drug., 167, cm, 10/25/20 15... Start Date: 10/25/20 Stop Date: 10/20/21 Status: OrderedLantus Solostar Pen 100 units/mL subcutaneous solution See Instructions, INJECT 50 UNITS SUBCUTANEOUSLY EVERY EVENING WITH DINNER. ROTATE INJECTION SITES.,# 15 mL, 5 Refills, 06/08/21 11:27:00 EDT, [facility], 167, cm, 05/17/21 15:37:00 EDT, Height Start Date: 06/08/21 Status: Orderedlisinopril 30 mg oral tablet See Instructions, TAKE 1 TABLET BY MOUTH EVERYDAY AT NOON, # 30 tablet, 2 Refills, [facility], 167, cm, 05/17/21 15:37:00 EDT, Height Start Date: 06/08/21 Status: OrderedmetFORMIN 1000 mg oral tablet See Instructions, TAKE 1 TABLET BY MOUTH TWICE DAILY IN THE MORNING AND AT BEDTIME, # 180 tablet, 1 Refills, 06/08/21 11:58:00 EDT, [facility], 167, cm, 05/17/21 15:37:00 EDT, Height Start Date: 06/08/21 Status: Orderedomeprazole 20 mg oral delayed release tablet 1 tablet = 20 mg, By Mouth, Daily, # 30 tablet, 11 Refills, Maintenance, 08/17/20 13:14:00 EDT, [facility], 167, cm, 06/01/20 12:40:00 EDT, Height Start Date: 08/17/20 Stop Date: 08/12/21 Status: OrderedPen [place], 31 G x 5 mm BD Ultra [...] 0 Refills, Maintenance, 03/17/20 8:42:00 EST, Aerosol, [facility], Partial fill upon patient request if the prescription is for a schedule II opioid drug., 1 pu... Start Date: 03/17/20 Stop Date: 04/16/20 Status: Orderedsimvastatin 40 mg oral tablet 1, tablet, By Mouth, Daily at bedtime, # 90 tablet, Refills 1, Route to Pharmacy Electronically, [facility], 167, cm, 05/17/21 15:37:00 [...] AT NOON, # 30 capsule, 5 Refills, [facility], 167, cm, 02/24/21 11:47:00 EST, Height Start Date: 03/05/21 Status: Ordered Problem List Condition Effective Dates Status Health Status Informant Hypertension(Confirmed) Active Hypertriglyceridemia(Confirmed) Active Migraines(Confirmed) Active Uncontrolled type 2 diabetes Active mellitus(Confirmed) Social History Social History Type Response Smoking Status Never (less than 100 in life time) entered on: 06/12/18 Sex
--- OUTSIDE RECORDS SUMMARY | 2022-04-30 00:37 | XMS_ITS | Continuity of Care Document ---
:1960 Author Organization [facility] Address [address] [place] [address]- Care Team Providers Name Role Phone Justin MIMS, Ly Rivers Primary Care Physician Encounter [facility] [place] Date(s): 03/17/20 - 03/24/20 [facility] [address] [place] [phone]- Encounter Diagnosis COVID-19 (Discharge Diagnosis) - 03/17/20 Attending Physician: Ly Anderson NP Allergies, Adverse [...] toxoids (Td) 05/20/07 Recorded 1Result Comment: FLU [facility] [id number] Medications amitriptyline 25 mg oral tablet 50 mg, 2, tablet, By Mouth, Daily at bedtime, 2 tab at bedtime. print in urdu please, # 60 tablet, Refills 7, Tot. Refills 7, Maintenance, 10/15/19 13:03:00 EDT, Route to Pharmacy Electronically, [facility], 167, cm, 10/15/19 1... Start Date: [...] tablet, 4 Refills, Maintenance, 02/24/20 10:42:00 EST,Tablet, [facility], 167, cm, 12/25/19 10:26:00 EST, Height Start Date: 02/24/20 Stop Date: 07/23/20 Status: OrderedLantus Solostar Pen 100 units/mL subcutaneous solution = 45 units, Subcutaneous Injection, Daily at bedtime, rotate injection sites with evening meal, # 15mL, 3 Refills, Maintenance, 02/23/20 14:16:00 EST, Injection, [facility], dose increase, 167, cm, 12/25/19 10:26:00 EST, Height Start Date: 02/23/20 Stop Date: 06/22/20 Status: Orderedlisinopril 30 mg oral tablet 1 tablet = 30 mg, By Mouth, Daily, # 30 tablet, 2 Refills, Maintenance, 02/24/20 10:42:00 EST, Tablet, [facility], 167, cm, 12/25/19 10:26:00 EST, Height Start Date: 02/24/20 Stop Date: 05/24/20 Status: OrderedmetFORMIN 1000 mg oral tablet 1 tablet = 1,000 mg, By Mouth, 2 times a day, # 60 tablet, 2 Refills, Maintenance, 03/23/20 10:18:00EST, Tablet, [facility], 167, cm, 03/17/20 7:33:00 EST, Height Start Date: 03/23/20 Stop Date: 06/21/20 Status: Orderedomeprazole 20 mg oral delayed release tablet 1 tablet = 20 mg, By Mouth, Daily, # 30 tablet, 11 Refills, Maintenance, 09/03/19 21:29:00 EDT, [facility], 167, cm, 08/21/19 16:17:00 EDT, Height Start Date: 09/03/19 Stop Date: 08/28/20 Status: OrderedPen [place], 31 G x 5 mm BD Ultra [...] 03/23/20 10:17:00 EST, Route to Pharmacy Electronically, [facility], 167, cm, 03/17/20 7:33:00 EST, Height Start Date: 03/23/20 Stop Date: 09/19/20 Status: OrderedTrulicity Pen 0.75 mg/0.5 mL subcutaneous solution = 0.75 mg, Intramuscular, Every week, # 4 each, 2 Refills, Maintenance, 02/15/20 12:22:00 EST, [facility], 167, cm, 12/25/19 10:26:00 EST, [...] 30 capsule, 5 Refills, 03/15/20 7:53:00 EST, [facility], 167, cm, 03/03/20 12:52:00 EST, Height Start Date: 03/15/20 Status: Ordered Problem List Condition Effective Dates Status Health Status Informant Diabetes(Confirmed) Active Hypertension(Confirmed) Active Hypertriglyceridemia(Confirmed) Active Migraines(Confirmed) Active Uncontrolled type 2 diabetes Active mellitus(Confirmed) Diagnosis Diagnosis Type Effective Dates Health Status Clinical Serv ice Informant COVID-19 Discharge 03/17/20 Diagnosis Vital Signs Most recent to oldest [Reference Range]: 1 Height 167 cm (03/17/20 7:33 AM) Weight 81.36 kg (03/17/20 7:33 AM) Body Mass Index [18.5-24.99] 29.17 *H* (03/17/20 7:33 AM) Weight Obtained Via Patient/family stated (03/17/20 7:33 AM) Social History Social History Type Response Smoking Status Never (less than 100 in life time) entered on: 06/12/18 Sex
--- OUTSIDE RECORDS SUMMARY | 2022-04-30 00:37 | XMS_ITS | Continuity of Care Document ---
:1960 Author Organization [facility] Adult Address [address] [place] [address]- Care Team Providers Name Role Phone Justin MIMS, Ly Rivers Primary Care Physician [phone] [id number] Date(s): 03/03/20 - 03/10/20 [facility] Adult [address] [place] [id number]- Encounter Diagnosis Rash (Discharge Diagnosis) - 03/03/20 Dizziness (Discharge Diagnosis) - 03/03/20 Attending Physician: Ly Anderson NP Allergies, Adverse [...] toxoids (Td) 05/20/07 Recorded 1Result Comment: FLU [facility] 05153-397-03 Medications amitriptyline 25 mg oral tablet 50 mg, 2, tablet, By Mouth, Daily at bedtime, 2 tab at bedtime. print in slovak please, # 60 tablet, Refills 7, Tot. Refills 7, Maintenance, 10/15/19 13:03:00 EDT, Route to Pharmacy Electronically, [facility], 167, cm, 10/15/19 1... Start [...] tablet, 4 Refills, Maintenance, 02/24/20 10:42:00 EST,Tablet, [facility], 167, cm, 12/25/19 10:26:00 EST, Height Start Date: 02/24/20 Stop Date: 07/23/20 Status: OrderedLantus Solostar Pen 100 units/mL subcutaneous solution = 45 units, Subcutaneous Injection, Daily at bedtime, rotate injection sites with evening meal, # 15mL, 3 Refills, Maintenance, 02/23/20 14:16:00 EST, Injection, [facility], dose increase, 167, cm, 12/25/19 10:26:00 EST, Height Start Date: 02/23/20 Stop Date: 06/22/20 Status: Orderedlisinopril 30 mg oral tablet 1 tablet = 30 mg, By Mouth, Daily, # 30 tablet, 2 Refills, Maintenance, 02/24/20 10:42:00 EST, Tablet, [facility], 167, cm, 12/25/19 10:26:00 EST, Height Start Date: 02/24/20 Stop Date: 05/24/20 Status: OrderedmetFORMIN 1000 mg oral tablet 1 tablet = 1,000 mg, By Mouth, 2 times a day, # 60 tablet, 5 Refills, Maintenance, 10/02/19 13:18:00EDT, Tablet, [facility], 167, cm, 08/21/19 16:17:00 EDT, Height Start Date: 10/02/19 Stop Date: 03/30/20 Status: Orderedomeprazole 20 mg oral delayed release tablet 1 tablet = 20 mg, By Mouth, Daily, # 30 tablet, 11 Refills, Maintenance, 09/03/19 21:29:00 EDT, [facility], 167, cm, 08/21/19 16:17:00 EDT, Height Start Date: 09/03/19 Stop Date: 08/28/20 Status: OrderedPen [place], 31 G x 5 mm BD Ultra [...] 09/29/19 14:25:00 EDT, Route to Pharmacy Electronically, [facility], 167, cm, 08/21/19 16:17:00 EDT, Height Start Date: 09/29/19 Stop Date: 03/27/20 Status: OrderedTrulicity Pen 0.75 mg/0.5 mL subcutaneous solution = 0.75 mg, Intramuscular, Every week, # 4 each, 2 Refills, Maintenance, 02/15/20 12:22:00 EST, [facility], 167, cm, 12/25/19 10:26:00 EST, [...] NOON, # 30 capsule, 3 Refills, Maintenance, [facility], 167, cm, 10/15/19 12:43:00 EDT, Height Start Date: 11/19/19 Status: Ordered Problem List Condition Effective Dates Status Health Status Informant Diabetes(Confirmed) Active Hypertension(Confirmed) Active Hypertriglyceridemia(Confirmed) Active Migraines(Confirmed) Active Uncontrolled type 2 diabetes Active mellitus(Confirmed) Diagnosis Diagnosis Type Effective Dates Health Status Clinical Serv ice Informant Rash Discharge 03/03/20 Diagnosis Dizziness Discharge 03/03/20 Diagnosis Vital Signs Most recent to oldest [Reference Range]: 1 Height 167 cm (03/03/20 12:52 PM) Social History Social History Type Response Smoking Status Never (less than 100 in life time) entered on: 06/12/18 Sex
--- OUTSIDE RECORDS SUMMARY | 2022-04-30 00:37 | XMS_ITS | Continuity of Care Document ---
:1960 Author Organization [facility] Address [address] [place] [address], [address] [place] [id number]- Care Team Providers Name Role Phone Justin MIMS, Ly Rivers Primary Care Physician [phone] [facility] [id number] Date(s): 02/01/21 - 02/08/21 [facility] [employer] [address], [address] [place] [id number] Attending Physician: Jessy Villagran DO Referring Physician: Ly Anderson NP Allergies, [...] toxoids (Td) 05/20/07 Recorded 1Result Comment: FLU [facility] 16357-784-86 Medications amitriptyline 25 mg oral tablet 2, tablet, By Mouth, Daily at bedtime, # 60 tablet, Refills 7, Route to Pharmacy Electronically, [facility], 167, cm, 10/25/20 16:32:00 EDT, Height Start Date: 11/29/20 Status: Orderedcetirizine 10 mg oral tablet 1 tablet = 10 mg, By Mouth, Daily, # 14 tablet, 0 Refills, Maintenance, 05/26/20 8:18:00 EDT, Tablet, [facility], Ukrainian instructions, 167, cm, 04/19/20 9:56:00 EST, Height [...] tablet, 4 Refills, Maintenance, 07/21/20 8:45:00 EDT, [facility], 167, cm, [...] DINNER. ROTATE INJECTION SITES, # 15 mL, 2 Refills, [facility], 167, cm, 10/25/20 16:32:00 EDT, Height Start Date: 11/02/20 Status: Orderedlisinopril 30 mg oral tablet See Instructions, TAKE 1 TABLET BY MOUTH EVERYDAY AT NOON, # 30 tablet, 2 Refills, [facility], 167, cm, 10/25/20 16:32:00 EDT, Height Start Date: 11/11/20 Status: Orderedlisinopril 30 mg oral tablet 1 tablet = 30 mg, By Mouth, Daily, # 30 tablet, 5 Refills, Maintenance, 05/24/20 10:42:00 EDT, Tablet, [facility], 167, cm, 04/19/20 9:56:00 EST, Height Start Date: 05/24/20 Stop Date: 11/20/20 Status: OrderedmetFORMIN 1000 mg oral tablet See Instructions, TAKE 1 TABLET BY MOUTH TWICE DAILY IN THE MORNING AND AT BEDTIME, # 60 tablet, 5 Refills, [facility], 167, cm, 10/25/20 16:32:00 EDT, Height Start Date: 11/29/20 Status: Orderedmetronidazole topical 0.75% gel with applicator 1 applicator, Vaginally, Daily at bedtime, for 5 days, # 70 Gm, 0 Refills, Acute 02/11/21 10:14:00 EST, 02/06/21 10:14:00 EST, Gel, [facility], Partial fill upon patient request if the prescription is for a schedule II opioid drug.... Start Date: 02/06/21 Stop Date: 02/11/21 Status: Orderedomeprazole 20 mg oral delayed release tablet 1 tablet = 20 mg, By Mouth, Daily, # 30 tablet, 11 Refills, Maintenance, 08/17/20 13:14:00 EDT, [facility], 167, cm, 06/01/20 12:40:00 EDT, Height Start Date: 08/17/20 Stop Date: 08/12/21 Status: OrderedPen [place], 31 G x 5 mm BD Ultra [...] mL, 5 Refills, Maintenance, 11/11/20 11:26:00 EDT, [facility], 167, cm, 10/25/20 16:32:00 EDT, [...] Informant Hypertension(Confirmed) Active Hypertriglyceridemia(Confirmed) Active Migraines(Confirmed) Active Obese class I(Confirmed) Active Uncontrolled type 2 diabetes Active mellitus(Confirmed) Vital Signs Most recent to oldest [Reference Range]: 1 Height 167 cm (02/01/21 1:19 PM) Weight 84.09 kg (02/01/21 1:19 PM) Body Mass Index [18.5-24.99] 30.15 *>HHI* (02/01/21 1:19 PM) Blood Pressure [90-138/55-84 mm Hg] 129/60 mm Hg (02/01/21 1:19 PM) Blood pressure sites Arm, left (02/01/21 1:19 PM) Weight Obtained Via Standing scale (02/01/21 1:19 PM) Social History Social History Type Response Smoking Status Never (less than 100 in life time) entered on: 06/12/18 Sex
--- OUTSIDE RECORDS SUMMARY | 2022-04-30 00:37 | XMS_ITS | Continuity of Care Document ---
:1960 Author Organization [facility] Adult Address [address] [place] [address]- Care Team Providers Name Role Phone Justin MIMS, Ly Rivers Primary Care Physician [phone] Encounter [facility] Date(s): 03/16/21 - 03/23/21 [facility] Adult [address] [place] [id number]- Encounter Diagnosis Right arm pain (Discharge Diagnosis) - 03/16/21 Attending Physician: Ly Anderson NP Allergies, Adverse [...] Recorded 1Result Comment: FLU [facility] 11035-815-72 Medications amitriptyline 25 mg oral tablet 2, tablet, By Mouth, Daily at bedtime, # 60 tablet, Refills 7, Route to Pharmacy Electronically, [facility], 167, cm, 10/25/20 16:32:00 EDT, Height Start Date: 11/29/20 Status: Orderedcetirizine 10 mg oral tablet 1 tablet = 10 mg, By Mouth, Daily, # 14 tablet, 0 Refills, Maintenance, 05/26/20 8:18:00 EDT, Tablet, [facility], Portuguese instructions, 167, cm, 04/19/20 9:56:00 EST, Height [...] 0 Refills, Maintenance, 08/23/20 11:33:00 EDT, Tablet, [facility], Partial fill upon patient request if the prescription is for a schedule II opioid drug., 16... Start Date: 08/23/20 Stop Date: 09/22/20 Status: OrderedJardiance 25 mg oral tablet 1 tablet = 25 mg, By Mouth, Daily in AM, # 30 tablet, 11 Refills, Maintenance, 10/25/20 16:03:00 EDT, Tablet, [facility], Partial fill upon patient request if the prescription is for a schedule II opioid drug., 167, cm, 10/25/20 15... Start Date: 10/25/20 Stop Date: 10/20/21 Status: OrderedLantus Solostar Pen 100 units/mL subcutaneous solution See Instructions, INJECT 45 UNITS SUBCUTANEOUSLY EVERY EVENING WITH DINNER. ROTATE INJECTION SITES.,# 15 mL, 5 Refills, [facility], 167, cm, 02/01/21 13:19:00 EST, Height Start Date: 02/11/21 Status: Orderedlisinopril 30 mg oral tablet See Instructions, TAKE 1 TABLET BY MOUTH EVERYDAY AT NOON, # 30 tablet, 3 Refills, [facility], 167, cm, 02/01/21 13:19:00 EST, Height Start Date: 02/09/21 Status: OrderedmetFORMIN 1000 mg oral tablet See Instructions, TAKE 1 TABLET BY MOUTH TWICE DAILY IN THE MORNING AND AT BEDTIME, # 60 tablet, 5 Refills, [facility], 167, cm, 10/25/20 16:32:00 EDT, Height Start Date: 11/29/20 Status: Orderednaproxen 500 mg oral tablet 1 tablet = 500 mg, By Mouth, 2 times a day, for 30 days, # 60 tablet, 0 Refills, Acute 04/15/21 15:10:00 EST, 03/16/21 15:10:00 EST, Tablet, [facility], Partial fill upon patient request if the prescription is for a schedule II opi... Start Date: 03/16/21 Stop Date: 04/15/21 Status: Orderedomeprazole 20 mg oral delayed release tablet 1 tablet = 20 mg, By Mouth, Daily, # 30 tablet, 11 Refills, Maintenance, 08/17/20 13:14:00 EDT, [facility], 167, cm, 06/01/20 12:40:00 EDT, Height Start Date: 08/17/20 Stop Date: 08/12/21 Status: OrderedPen [place], 31 G x 5 mm BD Ultra [...] 0 Refills, Maintenance, 03/17/20 8:42:00 EST, Aerosol, [facility], Partial fill upon patient request if the prescription is for a schedule II opioid drug., 1 pu... Start Date: 03/17/20 Stop Date: 04/16/20 Status: Orderedsimvastatin 40 mg oral tablet 1, tablet, By Mouth, Daily at bedtime, # 90 tablet, Refills 1, Route to Pharmacy Electronically, [facility], 167, cm, 10/25/20 16:32:00 EDT, Height Start Date: 12/28/20 Status: OrderedTrulicity Pen 0.75 mg/0.5 mL subcutaneous solution = 0.75 mg, Intramuscular, Every week, # 2 mL, 5 Refills, Maintenance, 11/11/20 11:26:00 EDT, [facility], 167, cm, 10/25/20 16:32:00 EDT, [...] AT NOON, # 30 capsule, 5 Refills, [facility], 167, cm, 02/24/21 11:47:00 EST, Height Start Date: 03/05/21 Status: Ordered Problem List Condition Effective Dates Status Health Status Informant Hypertension(Confirmed) Active Hypertriglyceridemia(Confirmed) Active Migraines(Confirmed) Active Uncontrolled type 2 diabetes Active mellitus(Confirmed) Diagnosis Diagnosis Type Effective Dates Health Status Clinical In formant Service Right arm pain Discharge 03/16/21 Diagnosis Vital Signs Most recent to oldest [Reference Range]: 1 2 Height 167 cm 167 cm (03/16/21 3:16 PM) (03/16/21 2:34 PM) Weight 80.8 kg (03/16/21 2:34 PM) Oxygen Saturation [94-100 %] 98 % (03/16/21 2:34 PM) Pulse Rate [55-90 bpm] 80 bpm (03/16/21 2:34 PM) Body Mass Index [18.5-24.99] 28.97 *H* (03/16/21 2:34 PM) Blood Pressure [90-138/55-84 mm Hg] 118/78 mm Hg 113/ 66 mm Hg (03/16/21 3:16 PM) (03/16/21 2:34 PM) Temperature [96.8-100.4 DegF] 98.3 DegF (03/16/21 2:34 PM) Mode of Delivery (Oxygen) Room air (03/16/21 2:34 PM) Blood pressure sites Arm, left Arm, right (03/16/21 3:16 PM) (03/16/21 2:34 PM) Temperature Route Temporal (03/16/21 2:34 PM) Weight Obtained Via Standing scale (03/16/21 2:34 PM) Social History Social History Type Response Smoking Status Never (less than 100 in life time) entered on: 06/12/18 Sex
--- OUTSIDE RECORDS SUMMARY | 2022-04-30 00:37 | XMS_ITS | Continuity of Care Document ---
:1960 Author Organization [facility] Address [address] [place] [address], [address] [place] [address], [address] [place] [address]- Care Team Providers Name Role Phone Justin MIMS, Ly Rivers Primary Care Physician Encounter [facility] Date(s): 10/15/19 - 10/22/19 [facility] [address] [facility], [address] [facility], [address] [place] [id number]- [facility] Attending Physician: Sang Rushing MD Referring Physician: [...] (Td) 05/20/07 Recorded 1Result Comment: FLU [facility] [id number] Medications amitriptyline 25 mg oral tablet 50 mg, 2, tablet, By Mouth, Daily at bedtime, 2 tab at bedtime. print in japanese please, # 60 tablet, Refills 7, Tot. Refills 7, Maintenance, 10/15/19 13:03:00 EDT, Route to Pharmacy Electronically, [facility], 167, cm, 10/15/19 1... Start [...] tablet, 4 Refills, Maintenance, 09/23/19 11:28:00 EDT,Tablet, [facility], 167, cm, 08/21/19 16:17:00 EDT, Height Start Date: 09/23/19 Stop Date: 02/20/20 Status: OrderedLantus Solostar Pen 100 units/mL subcutaneous solution = 45 units, Subcutaneous Injection, Daily at bedtime, rotate injection sites with evening meal, # 15mL, 3 Refills, Maintenance, 09/25/19 8:59:00 EDT, Injection, [facility], dose increase, 167, cm, 08/21/19 16:17:00 EDT, Height Start Date: 09/25/19 Stop Date: 01/23/20 Status: Orderedlisinopril 30 mg oral tablet 1 tablet = 30 mg, By Mouth, Daily, # 30 tablet, 5 Refills, Maintenance, 05/04/19 9:58:00 EDT, Tablet, [facility], 167, cm, 04/30/19 8:51:00 EDT, Height Start Date: 05/04/19 Stop Date: 10/31/19 Status: OrderedmetFORMIN 1000 mg oral tablet 1 tablet = 1,000 mg, By Mouth, 2 times a day, # 60 tablet, 5 Refills, Maintenance, 10/02/19 13:18:00EDT, Tablet, [facility], 167, cm, 08/21/19 16:17:00 EDT, Height Start Date: 10/02/19 Stop Date: 03/30/20 Status: Orderedomeprazole 20 mg oral delayed release tablet 1 tablet = 20 mg, By Mouth, Daily, # 30 tablet, 11 Refills, Maintenance, 09/03/19 21:29:00 EDT, [facility], 167, cm, 08/21/19 16:17:00 EDT, Height Start Date: 09/03/19 Stop Date: 08/28/20 Status: Orderedsimvastatin 40 mg oral tablet 40 mg, 1, tablet, By Mouth, Daily at bedtime, # 30 tablet, Refills 5, Tot. Refills 5, Maintenance, 09/29/19 14:25:00 EDT, Route to Pharmacy Electronically, [facility], 167, cm, 08/21/19 16:17:00 EDT, Height Start Date: 09/29/19 Stop Date: 03/27/20 Status: OrderedTrulicity Pen 0.75 mg/0.5 mL subcutaneous solution = 0.75 mg, Intramuscular, Every week, # 4 each, 3 Refills, Maintenance, 10/13/19 17:07:00 EDT, [facility], 167, cm, 10/13/19 14:02:00 EDT, [...] 3 Refills, Maintenance, 07/01/19 14:51:00 EDT, Capsule, [facility], 167, cm, 05/12/19 13:30:00 EDT, Height Start Date: 07/01/19 Stop Date: 10/29/19 Status: Ordered Problem List Condition Effective Dates Status Health Status Informant Diabetes(Confirmed) Active Hypertension(Confirmed) Active Hypertriglyceridemia(Confirmed) Active Migraines(Confirmed) Active Uncontrolled type 2 diabetes Active mellitus(Confirmed) Vital Signs Most recent to oldest [Reference Range]: 1 Height 167 cm (10/15/19 12:43 PM) Oxygen Saturation [94-100 %] 98 % (10/15/19 12:43 PM) Pulse Rate [55-90 bpm] 75 bpm (10/15/19 12:43 PM) Blood Pressure [90-138/55-84 mm Hg] 120/72 mm Hg (10/15/19 12:43 PM) Temperature [96.8-100.4 DegF] 98.8 DegF (10/15/19 12:43 PM) Blood pressure sites Arm, right (10/15/19 12:43 PM) Temperature Route Temporal (10/15/19 12:43 PM) Social History Social History Type Response Smoking Status Never (less than 100 in life time) entered on: 06/12/18 Sex
--- OUTSIDE RECORDS SUMMARY | 2022-04-30 00:37 | XMS_ITS | Continuity of Care Document ---
:1960 Author Organization [facility] Adult Address [address] [place] [address]- Care Team Providers Name Role Phone Justin MIMS, Ly Rivers Primary Care Physician [phone] Encounter [place] Date(s): 11/02/20 - 12/02/[address] [facility] Adult [address] [place] [address]- Allergies, Adverse Reactions, Alerts Substance Reaction Severity [...] [facility] [id number] Medications amitriptyline 25 mg oral tablet 2, [...] Tablet, [facility], [place]aguayan instructions, 167, cm, 04/19/20 9:56:00 EST, Height [...] tablet, 4 Refills, Maintenance, 07/21/20 8:45:00 EDT, [facility], [...] INJECTION SITES, # 15 mL, 2 Refills, [facility] [...] 5 Refills, Maintenance, 05/24/20 10:42:00 EDT, Tablet, [facility], 167, cm, 04/19/20 9:56:00 EST, Height Start Date: 05/24/20 Stop Date: 11/20/20 Status: OrderedmetFORMIN 1000 mg oral tablet See Instructions, TAKE 1 TABLET BY MOUTH TWICE DAILY IN THE MORNING AND AT BEDTIME, # 60 tablet, 5 Refills, [facility], 167, cm, 10/25/20 16:32:00 EDT, Height Start Date: 11/29/20 Status: Orderedomeprazole 20 mg oral delayed release tablet 1 tablet = 20 mg, By Mouth, Daily, # 30 tablet, 11 Refills, Maintenance, 08/17/20 13:14:00 EDT, [facility], 167, cm, 06/01/20 12:40:00 EDT, Height Start Date: 08/17/20 Stop Date: 08/12/21 Status: OrderedPen [place], 31 G x 5 mm BD Ultra [...] 09/19/20 10:17:00 EDT, [facility] to [facility] Electronically, [facility] [...] 30 capsule, 5 Refills, 09/07/20 10:39:00 EDT, [facility], 167, cm, 08/23/20 11:40:00 EDT, Height Start Date: 09/07/20 Status: Ordered Problem List Condition Effective Dates Status Health Status Informant Diabetes(Confirmed) Active Hypertension(Confirmed) Active Hypertriglyceridemia(Confirmed) Active Migraines(Confirmed) Active Uncontrolled type 2 diabetes Active mellitus(Confirmed) Social History Social History Type Response Smoking Status Never (less than 100 in life time) entered on: 06/12/18 Sex
--- OUTSIDE RECORDS SUMMARY | 2022-04-30 00:37 | XMS_ITS | Continuity of Care Document ---
:1960 Author Organization [facility] Address [address] [place] [address], [address] [place] [id number]- Care Team Providers Name Role Phone Justin MIMS, Ly Rivers Primary Care Physician Encounter [facility] Date(s): 02/06/21 - 03/08/21 [facility] [employer], [address] [place] [id number] Allergies, Adverse Reactions, Alerts No Known Allergies [...] [facility] [id number] Medications amitriptyline 25 mg oral tablet 2, tablet, By Mouth, Daily at bedtime, # 60 tablet, Refills 7, Route to Pharmacy Electronically, [facility], 167, cm, 10/25/20 16:32:00 EDT, Height Start Date: 11/29/20 Status: Orderedcetirizine 10 mg oral tablet 1 tablet = 10 mg, By Mouth, Daily, # 14 tablet, 0 Refills, Maintenance, 05/26/20 8:18:00 EDT, Tablet, [facility], Kenyan instructions, 167, cm, 04/19/20 9:56:00 EST, Height [...] 0 Refills, Maintenance, 08/23/20 11:33:00 EDT, Tablet, [facility], Partial fill upon patient request if the prescription is for a schedule II opioid drug., 16... Start Date: 08/23/20 Stop Date: 09/22/20 Status: OrderedJardiance 25 mg oral tablet 1 tablet = 25 mg, By Mouth, Daily in AM, # 30 tablet, 11 Refills, Maintenance, 10/25/20 16:03:00 EDT, Tablet, [facility], Partial fill upon patient request if the prescription is for a schedule II opioid drug., 167, cm, 10/25/20 15... Start Date: 10/25/20 Stop Date: 10/20/21 Status: OrderedLantus Solostar Pen 100 units/mL subcutaneous solution See Instructions, INJECT 45 UNITS SUBCUTANEOUSLY EVERY EVENING WITH DINNER. ROTATE INJECTION SITES.,# 15 mL, 5 Refills, [facility], 167, cm, 02/01/21 13:19:00 EST, Height Start Date: 02/11/21 Status: Orderedlisinopril 30 mg oral tablet See Instructions, TAKE 1 TABLET BY MOUTH EVERYDAY AT NOON, # 30 tablet, 3 Refills, [facility], 167, cm, 02/01/21 13:19:00 EST, Height Start Date: 02/09/21 Status: OrderedmetFORMIN 1000 mg oral tablet See Instructions, TAKE 1 TABLET BY MOUTH TWICE DAILY IN THE MORNING AND AT BEDTIME, # 60 tablet, 5 Refills, [facility], 167, cm, 10/25/20 16:32:00 EDT, Height Start Date: 11/29/20 Status: Orderedomeprazole 20 mg oral delayed release tablet 1 tablet = 20 mg, By Mouth, Daily, # 30 tablet, 11 Refills, Maintenance, 08/17/20 13:14:00 EDT, [facility], 167, cm, 06/01/20 12:40:00 EDT, Height Start Date: 08/17/20 Stop Date: 08/12/21 Status: OrderedPen [place], 31 G x 5 mm BD Ultra [...] 0 Refills, Maintenance, 03/17/20 8:42:00 EST, Aerosol, [facility], Partial fill upon patient request if the prescription is for a schedule II opioid drug., 1 pu... Start Date: 03/17/20 Stop Date: 04/16/20 Status: Orderedsimvastatin 40 mg oral tablet 1, tablet, By Mouth, Daily at bedtime, # 90 tablet, Refills 1, Route to Pharmacy Electronically, [facility], 167, cm, 10/25/20 16:32:00 EDT, Height Start Date: 12/28/20 Status: OrderedTrulicity Pen 0.75 mg/0.5 mL subcutaneous solution = 0.75 mg, Intramuscular, Every week, # 2 mL, 5 Refills, Maintenance, 11/11/20 11:26:00 EDT, [facility], 167, cm, 10/25/20 16:32:00 EDT, [...] AT NOON, # 30 capsule, 5 Refills, [facility], 167, cm, 02/24/21 11:47:00 EST, Height Start Date: 03/05/21 Status: Ordered Problem List Condition Effective Dates Status Health Status Informant Hypertension(Confirmed) Active Hypertriglyceridemia(Confirmed) Active Migraines(Confirmed) Active Uncontrolled type 2 diabetes Active mellitus(Confirmed) Social History Social History Type Response Smoking Status Never (less than 100 in life time) entered on: 06/12/18 Sex
--- OUTSIDE RECORDS SUMMARY | 2022-04-30 00:37 | XMS_ITS | Continuity of Care Document ---
:1960 Author Organization [facility] Adult Address [address] [place] [address]- Care Team Providers Name Role Phone Justin MIMS, Ly Rivers Primary Care Physician [phone] [place] [facility] [place] 12[place]18/19 [facility] Adult [address] [place] [id number] Allergies, Adverse Reactions, Alerts Substance Reaction [...] 1Result Comment: FLU [facility] 76754-603-18 Medications amitriptyline 25 mg oral tablet 50 mg, 2, tablet, By Mouth, Daily at bedtime, 2 tab at bedtime. print in central african please, # 60 tablet, Refills 7, Tot. Refills 7, Maintenance, 10/15/19 13:03:00 EDT, Route to Pharmacy Electronically, [facility], 167, cm, 10/15/19 1... [...] tablet, 4 Refills, Maintenance, 09/23/19 11:28:00 EDT,Tablet, [facility], 167, cm, 08/21/19 16:17:00 EDT, Height Start Date: 09/23/19 Stop Date: 02/20/20 Status: OrderedLantus Solostar Pen 100 units/mL subcutaneous solution = 45 units, Subcutaneous Injection, Daily at bedtime, rotate injection sites with evening meal, # 15mL, 3 Refills, Maintenance, 09/25/19 8:59:00 EDT, Injection, [facility], dose increase, 167, cm, 08/21/19 16:17:00 EDT, Height Start Date: 09/25/19 Stop Date: 01/23/20 Status: Orderedlisinopril 30 mg oral tablet 1 tablet = 30 mg, By Mouth, Daily, # 30 tablet, 2 Refills, Maintenance, 12/01/19 15:23:00 EDT, Tablet, [facility], 167, cm, 11/23/19 14:14:00 EDT, Height Start Date: 12/01/19 Stop Date: 02/29/20 Status: OrderedmetFORMIN 1000 mg oral tablet 1 tablet = 1,000 mg, By Mouth, 2 times a day, # 60 tablet, 5 Refills, Maintenance, 10/02/19 13:18:00EDT, Tablet, [facility], 167, cm, 08/21/19 16:17:00 EDT, Height Start Date: 10/02/19 Stop Date: 03/30/20 Status: Orderednaproxen 500 mg oral tablet 1 tablet = 500 mg, By Mouth, 2 times a day, for 30 days, # 60 tablet, 0 Refills, Acute 12/23/19 14:07:00 EST, 11/23/19 14:07:00 EDT, [facility], 167, cm, 11/23/19 13:51:00 EDT, Height Start Date: 11/23/19 Stop Date: 12/23/19 Status: Orderedomeprazole 20 mg oral delayed release tablet 1 tablet = 20 mg, By Mouth, Daily, # 30 tablet, 11 Refills, Maintenance, 09/03/19 21:29:00 EDT, [facility], 167, cm, 08/21/19 16:17:00 EDT, Height Start Date: 09/03/19 Stop Date: 08/28/20 Status: OrderedPen [place], 31 G x 5 mm BD Ultra [...] 09/29/19 14:25:00 EDT, Route to Pharmacy Electronically, [facility], 167, cm, 08/21/19 16:17:00 EDT, Height Start Date: 09/29/19 Stop Date: 03/27/20 Status: OrderedTrulicity Pen 0.75 mg/0.5 mL subcutaneous solution = 0.75 mg, Intramuscular, Every week, # 4 each, 3 Refills, Maintenance, 10/13/19 17:07:00 EDT, [facility], 167, cm, 10/13/19 14:02:00 EDT, [...] NOON, # 30 capsule, 3 Refills, Maintenance, [facility], 167, cm, 10/15/19 12:43:00 EDT, Height Start Date: 11/19/19 Status: Ordered Problem List Condition Effective Dates Status Health Status Informant Diabetes(Confirmed) Active Hypertension(Confirmed) Active Hypertriglyceridemia(Confirmed) Active Migraines(Confirmed) Active Uncontrolled type 2 diabetes Active mellitus(Confirmed) Social History Social History Type Response Smoking Status Never (less than 100 in life time) entered on: 06/12/18 Sex
--- OUTSIDE RECORDS SUMMARY | 2022-04-30 00:37 | XMS_ITS | Continuity of Care Document ---
:1960 Author Organization [facility] Address [address] [place] [id number]- Care Team Providers Name Role Phone Justin MIMS, Ly Rivers Primary Care Physician Encounter [facility] [place] Date(s): 04/03/19 - 06/07/[address] [address]- [facility] Attending Physician: Jacky Berman DPM Allergies, Adverse Reactions, [...] 1Result Comment: FLU [facility] 27309-858-09 Medications amitriptyline 25 mg oral tablet 50 mg, 2, tablet, By Mouth, Daily at bedtime, 2 tab at bedtime. print in belarusian please, # 60 tablet, Refills 6, Tot. [...] 14:35:00EST, Tablet, [facility] - , 167, cm, 11/18/18 [...] 3 Refills, Maintenance, 03/09/19 11:00:00 EST, Capsule, [facility] - , 167, cm, 11/18/18 [...]
--- OUTSIDE RECORDS SUMMARY | 2022-04-30 00:37 | XMS_ITS | Continuity of Care Document ---
:1960 Author Organization [facility] Adult Address [address] [place] [address]- Care Team Providers Name Role Phone Justin [place], Ly Rivers Primary Care Physician [place] [facility] [place]20 [place] 04/16/20 [facility] Adult [address] [place] [id number]- Allergies, Adverse Reactions, Alerts Substance Reaction Severity [...] (Td) 05/20/07 Recorded 1Result Comment: FLU [facility] [id number] Medications amitriptyline 25 mg oral tablet 50 mg, 2, tablet, By Mouth, Daily at bedtime, 2 tab at bedtime. print in cymro please, # 60 tablet, Refills 7, Tot. Refills 7, Maintenance, 04/14/20 13:04:00 EST, Route to Pharmacy Electronically, [facility], 167, cm, 03/17/20 7... Start [...] tablet, 4 Refills, Maintenance, 02/24/20 10:42:00 EST,Tablet, [facility], 167, cm, 12/25/19 10:26:00 EST, Height Start Date: 02/24/20 Stop Date: 07/23/20 Status: OrderedLantus Solostar Pen 100 units/mL subcutaneous solution = 45 units, Subcutaneous Injection, Daily at bedtime, rotate injection sites with evening meal, # 15mL, 3 Refills, Maintenance, 02/23/20 14:16:00 EST, Injection, [facility], dose increase, 167, cm, 12/25/19 10:26:00 EST, Height Start Date: 02/23/20 Stop Date: 06/22/20 Status: Orderedlisinopril 30 mg oral tablet 1 tablet = 30 mg, By Mouth, Daily, # 30 tablet, 2 Refills, Maintenance, 02/24/20 10:42:00 EST, Tablet, [facility], 167, cm, 12/25/19 10:26:00 EST, Height Start Date: 02/24/20 Stop Date: 05/24/20 Status: OrderedmetFORMIN 1000 mg oral tablet 1 tablet = 1,000 mg, By Mouth, 2 times a day, # 60 tablet, 2 Refills, Maintenance, 03/23/20 10:18:00EST, Tablet, [facility], 167, cm, 03/17/20 7:33:00 EST, Height Start Date: 03/23/20 Stop Date: 06/21/20 Status: Orderedomeprazole 20 mg oral delayed release tablet 1 tablet = 20 mg, By Mouth, Daily, # 30 tablet, 11 Refills, Maintenance, 09/03/19 21:29:00 EDT, [facility], 167, cm, 08/21/19 16:17:00 EDT, Height Start Date: 09/03/19 Stop Date: 08/28/20 Status: OrderedPen [place], 31 G x 5 mm BD Ultra [...] 0 Refills, Maintenance, 03/17/20 8:42:00 EST, Aerosol, [facility], Partial fill upon patient request if the prescription is for a schedule II opioid drug., 1 pu... Start Date: 03/17/20 Stop Date: 04/16/20 Status: Orderedsimvastatin 40 mg oral tablet 40 mg, 1, tablet, By Mouth, Daily at bedtime, # 90 tablet, Refills 0, Tot. Refills 0, Maintenance, 03/23/20 10:17:00 EST, Route to Pharmacy Electronically, [facility], 167, cm, 03/17/20 7:33:00 EST, Height Start Date: 03/23/20 Stop Date: 09/19/20 Status: OrderedTrulicity Pen 0.75 mg/0.5 mL subcutaneous solution = 0.75 mg, Intramuscular, Every week, # 4 each, 2 Refills, Maintenance, 02/15/20 12:22:00 EST, [facility], 167, cm, 12/25/19 10:26:00 EST, [...] 30 capsule, 5 Refills, 03/15/20 7:53:00 EST, [facility], 167, cm, 03/03/20 12:52:00 EST, Height Start Date: 03/15/20 Status: Ordered Problem List Condition Effective Dates Status Health Status Informant Diabetes(Confirmed) Active Hypertension(Confirmed) Active Hypertriglyceridemia(Confirmed) Active Migraines(Confirmed) Active Uncontrolled type 2 diabetes Active mellitus(Confirmed) Social History Social History Type Response Smoking Status Never (less than 100 in life time) entered on: 06/12/18 Sex
--- OUTSIDE RECORDS SUMMARY | 2022-04-30 00:37 | XMS_ITS | Continuity of Care Document ---
:1960 Author Organization [facility] Adult Address [address] [place] [address]- Care Team Providers Name Role Phone Justin MIMS, Ly Rivers Primary Care Physician Encounter [facility] [place] Date(s): 01/13/20 - 05/12/[address] [facility] Adult [address] [place] [id number] Encounter Diagnosis Diabetes (Discharge Diagnosis) - 04/12/20 Hypertension (Discharge Diagnosis) - 04/12/20 Hypertriglyceridemia (Discharge Diagnosis) - 04/12/20 Migraines (Discharge Diagnosis) - 04/12/20 Uncontrolled type 2 diabetes mellitus (Discharge Diagnosis) - 04/12/20 Attending Physician: Ly Anderson NP Allergies, Adverse [...] 1Result Comment: FLU [facility] [id number] Medications amitriptyline 25 mg oral tablet 50 mg, 2, tablet, By Mouth, Daily at bedtime, 2 tab at bedtime. print in swedish please, # 60 tablet, Refills 7, Tot. Refills 7, Maintenance, 04/14/20 13:04:00 EST, Route to Pharmacy Electronically, [facility], 167, cm, 03/17/20 7... [...] tablet, 4 Refills, Maintenance, 02/24/20 10:42:00 EST,Tablet, [facility], 167, cm, 12/25/19 10:26:00 EST, Height Start Date: 02/24/20 Stop Date: 07/23/20 Status: OrderedLantus Solostar Pen 100 units/mL subcutaneous solution = 45 units, Subcutaneous Injection, Daily at bedtime, rotate injection sites with evening meal, # 15mL, 3 Refills, Maintenance, 02/23/20 14:16:00 EST, Injection, [facility], dose increase, 167, cm, 12/25/19 10:26:00 EST, Height Start Date: 02/23/20 Stop Date: 06/22/20 Status: Orderedlisinopril 30 mg oral tablet 1 tablet = 30 mg, By Mouth, Daily, for 30 days, # 30 tablet, 2 Refills, Hard Stop 05/24/20 10:42:00 EDT, 02/24/20 10:42:00 EST, Tablet, [facility], 167, cm, 12/25/19 10:26:00 EST, Height Start Date: 02/24/20 Stop Date: 05/24/20 Status: Orderedlisinopril 30 mg oral tablet 1 tablet = 30 mg, By Mouth, Daily, # 30 tablet, 5 Refills, Maintenance, 05/24/20 10:42:00 EDT, Tablet, [facility], 167, cm, 04/19/20 9:56:00 EST, Height Start Date: 05/24/20 Stop Date: 11/20/20 Status: OrderedmetFORMIN 1000 mg oral tablet 1 tablet = 1,000 mg, By Mouth, 2 times a day, # 60 tablet, 2 Refills, Maintenance, 03/23/20 10:18:00EST, Tablet, [facility], 167, cm, 03/17/20 7:33:00 EST, Height Start Date: 03/23/20 Stop Date: 06/21/20 Status: Orderedomeprazole 20 mg oral delayed release tablet 1 tablet = 20 mg, By Mouth, Daily, # 30 tablet, 11 Refills, Maintenance, 09/03/19 21:29:00 EDT, [facility], 167, cm, 08/21/19 16:17:00 EDT, Height Start Date: 09/03/19 Stop Date: 08/28/20 Status: OrderedPen [place], 31 G x 5 mm BD Ultra [...] 0 Refills, Maintenance, 03/17/20 8:42:00 EST, Aerosol, [facility], Partial fill upon patient request if the prescription is for a schedule II opioid drug., 1 pu... Start Date: 03/17/20 Stop Date: 04/16/20 Status: Orderedsimvastatin 40 mg oral tablet 40 mg, 1, tablet, By Mouth, Daily at bedtime, # 90 tablet, Refills 0, Tot. Refills 0, Maintenance, 03/23/20 10:17:00 EST, Route to Pharmacy Electronically, [facility], 167, cm, 03/17/20 7:33:00 EST, Height Start Date: 03/23/20 Stop Date: 09/19/20 Status: OrderedTrulicity Pen 0.75 mg/0.5 mL subcutaneous solution = 0.75 mg, Intramuscular, Every week, # 2 mL, 5 Refills, Maintenance, 05/15/20 12:22:00 EDT, [facility], 167, cm, 04/19/20 9:56:00 EST, Height Start Date: 05/15/20 Stop Date: 11/11/20 Status: OrderedTrulicity Pen 0.75 mg/0.5 mL subcutaneous solution = 0.75 mg, Intramuscular, Every week, for 30 days, # 4 each, 2 Refills, Hard Stop 05/15/20 12:22:00 EDT, 02/15/20 12:22:00 EST, [facility], 167, cm, 12/25/19 10:26:00 [...] 30 capsule, 5 Refills, 03/15/20 7:53:00 EST, [facility], 167, cm, 03/03/20 12:52:00 EST, Height Start Date: 03/15/20 Status: Ordered Problem List Condition Effective Dates Status Health Status Informant Diabetes(Confirmed) Active Hypertension(Confirmed) Active Hypertriglyceridemia(Confirmed) Active Migraines(Confirmed) Active Uncontrolled type 2 diabetes Active mellitus(Confirmed) Diagnosis Diagnosis Type Effective Health Clinical Informant Dates Status Service Diabetes Discharge 04/12/20 Diagnosis Hypertension Discharge 04/12/20 Diagnosis Hypertriglyceridemia Discharge 04/12/20 Diagnosis Migraines Discharge 04/12/20 Diagnosis Uncontrolled type 2 Discharge 04/12/20 diabetes mellitus Diagnosis Social History Social History Type Response Smoking Status Never (less than 100 in life time) entered on: 06/12/18 Sex
--- OUTSIDE RECORDS SUMMARY | 2022-04-30 00:37 | XMS_ITS | Continuity of Care Document ---
:1960 Author Organization [facility] Adult Address [address] [place] [address]- Care Team Providers Name Role Phone Justin MIMS, Ly Rivers Primary Care Physician En[place] [facility] [place] Date(s): 07/20/21 - 08/19/21 [facility] Adult [address] [place] [address]- Attending Physician: Trevon Walls Admitting Physician: AdmTrevon [...] (Td) 05/20/07 Recorded 1Result Comment: FLU [facility] [place] 2[place] [id number] Medications amitriptyline 25 mg oral tablet 2, tablet, By Mouth, Daily at bedtime, # 60 tablet, Refills 7, Route to Pharmacy Electronically, [facility], 167, cm, 06/23/22 14:26:00 EDT, Height Start Date: 08/15/21 Status: Orderedcetirizine 10 mg oral tablet 1 tablet = 10 mg, By Mouth, Daily, # 14 tablet, 0 Refills, Maintenance, 05/26/20 8:18:00 EDT, Tablet, [facility], Albanian instructions, 167, cm, 04/19/20 9:56:00 EST, Height Start Date: 05/26/20 Stop Date: 06/09/20 Status: Ordereddulaglutide 1.5 mg/0.5 mL subcutaneous solution 0.5 mL = 1.5 mg, Subcutaneous Injection, Every week, # 4 each, 11 Refills, Maintenance, 07/20/21 9:20:00 EDT, Solution, [facility], Partial fill upon patient request [...] 0 Refills, Maintenance, 08/16/21 16:27:00 EDT, Ointment, [facility],... Start Date: 08/16/21 Status: OrderedhydrOXYzine hydrochloride 25 mg oral tablet 1 tablet = 25 mg, By Mouth, 3 times a day, PRN for itching, # 90 tablet, 0 Refills, Maintenance, 08/23/20 11:33:00 EDT, Tablet, [facility], Partial fill upon patient request if the prescription is for a schedule II opioid drug., 16... Start Date: 08/23/20 Stop Date: 09/22/20 Status: OrderedJardiance 25 mg oral tablet 1 tablet = 25 mg, By Mouth, Daily in AM, # 30 tablet, 11 Refills, Maintenance, 10/25/20 16:03:00 EDT, Tablet, [facility], Partial fill upon patient request if the prescription is for a schedule II opioid drug., 167, cm, 10/25/20 15... Start Date: 10/25/20 Stop Date: 10/20/21 Status: OrderedLantus Solostar Pen 100 units/mL subcutaneous solution See Instructions, INJECT 50 UNITS SUBCUTANEOUSLY EVERY EVENING WITH DINNER. ROTATE INJECTION SITES.,# 15 mL, 5 Refills, 06/08/21 11:27:00 EDT, [facility], 167, cm, 05/17/21 15:37:00 EDT, Height Start Date: 06/08/21 Status: Orderedlisinopril 30 mg oral tablet See Instructions, TAKE 1 TABLET BY MOUTH EVERYDAY AT NOON, # 30 tablet, 2 Refills, [facility], 167, cm, 05/17/21 15:37:00 EDT, Height Start Date: 06/08/21 Status: OrderedmetFORMIN 1000 mg oral tablet See Instructions, TAKE 1 TABLET BY MOUTH TWICE DAILY IN THE MORNING AND AT BEDTIME, # 180 tablet, 1 Refills, 06/08/21 11:58:00 EDT, [facility], 167, cm, 05/17/21 15:37:00 EDT, Height Start Date: 06/08/21 Status: Orderedomeprazole 20 mg oral delayed release tablet 1 tablet = 20 mg, By Mouth, Daily, PRN for acid reflux, for 30 days, # 30 tablet, 11 Refills, Acute 07/15/22 9:24:00 EDT, 07/20/21 9:24:00 EDT, [facility], 167, cm, 07/20/21 8:40:00EDT, Height Start Date: 07/20/21 Stop Date: 07/15/22 Status: OrderedPen [place], 31 G x 5 mm BD Ultra [...] 0 Refills, Maintenance, 03/17/20 8:42:00 EST, Aerosol, [facility], Partial fill upon patient request if the prescription is for a schedule II opioid drug., 1 pu... Start Date: 03/17/20 Stop Date: 04/16/20 Status: Orderedsimvastatin 40 mg oral tablet 1, tablet, By Mouth, Daily at bedtime, # 90 tablet, Refills 1, Route to Pharmacy Electronically, [facility], 167, cm, 05/17/21 15:37:00 EDT, [...] AT NOON, # 30 capsule, 5 Refills, [facility], 167, cm, 02/24/21 11:47:00 EST, [...]
--- OUTSIDE RECORDS SUMMARY | 2022-04-30 00:37 | XMS_ITS | Continuity of Care Document ---
:1960 Author Organization [facility] Adult Address [address] [place] [address]- Care Team Providers Name Role Phone Justin MIMS, Ly Rivers Primary Care Physician Encounter [facility] [place] Date(s): 02/21/22 - 03/23/22 [facility] Adult [address] [place] [id number]- Allergies, Adverse Reactions, Alerts No Known Allergies [...] (Td) 05/20/07 Recorded 1Result Comment: FLU [facility] [id number] Medications amitriptyline 25 mg oral tablet 2, tablet, By Mouth, Daily at bedtime, # 60 tablet, Refills 7, Route to Pharmacy Electronically, [facility], 167, cm, 08/03/21 14:26:00 EDT, Height Start Date: 08/15/21 Status: Orderedcetirizine 10 mg oral tablet 1 tablet = 10 mg, By Mouth, Daily, # 14 tablet, 0 Refills, Maintenance, 05/26/20 8:18:00 EDT, Tablet, [facility], [place]ian instructions, 167, cm, 04/19/20 9:56:00 EST, Height Start Date: 05/26/20 Stop Date: 06/09/20 Status: OrderedD3 50 mcg (2000 intl units) oral capsule See Instructions, TAKE 1 CAPSULE BY MOUTH EVERYDAY AT NOON, # 30 capsule, 5 Refills, Maintenance, 03/13/22 13:02:00 EST, [facility], 167, cm, 10/20/21 11:25:00 EDT, Height Start Date: 03/13/22 Status: Ordereddulaglutide 1.5 mg/0.5 mL subcutaneous solution 0.5 mL = 1.5 mg, Subcutaneous Injection, Every week, # 4 each, 11 Refills, Maintenance, 07/20/21 9:20:00 EDT, Solution, [facility] [...] 0 Refills, Maintenance, 08/16/21 16:27:00 EDT, Ointment, [facility],... Start Date: 08/16/21 Status: [...] Status: OrderedJardiance 25 mg oral tablet 1 tablet, By Mouth, Daily in AM, # 30 tablet, 2 Refills, Maintenance, 01/15/22 17:01:00 EST, [facility], 167, cm, 10/20/21 11:25:00 EDT, Height Start Date: 01/15/22 Status: Orderedlisinopril 30 mg oral tablet See Instructions, TAKE 1 TABLET BY MOUTH EVERYDAY AT NOON, # 30 tablet, 0 Refills, Maintenance, 03/14/22 11:52:00 EST, [facility], 167, cm, 10/20/21 11:25:00 EDT, Height Start Date: 03/14/22 Status: OrderedmetFORMIN 1000 mg oral tablet See Instructions, TAKE 1 TABLET BY MOUTH TWICE DAILY IN THE MORNING AND AT BEDTIME, # 180 tablet, 1 Refills, 12/20/21 9:36:00 EST, [facility], 167, cm, 10/20/21 11:25:00 EDT, Height Start Date: 12/20/21 Status: OrderedMetroCream 0.75% topical cream 1 application, Topically, 2 times a day, to facial rash, after washing, # 45 Gm, 0 Refills, Maintenance, 09/11/21 11:03:00 EDT, Cream, [facility], Partial fill upon patient request if the prescription is for a schedule II opioid dr... Start Date: 09/11/21 Status: Orderedomeprazole 20 mg oral delayed release tablet 1 tablet = 20 mg, By Mouth, Daily, PRN for acid reflux, for 30 days, # 30 tablet, 11 Refills, Acute 07/15/22 9:24:00 EDT, 07/20/21 9:24:00 EDT, [facility], 167, cm, 07/20/21 8:40:00EDT, Height Start Date: 07/20/21 Stop Date: 07/15/22 Status: OrderedPen [place], 31 G x 5 mm BD Ultra [...] 6 Refills, Maintenance, 09/28/21 9:11:00 EDT, Tablet, [facility], Partial fill upon patient request if the prescription is for a schedule II opioid drug., 167, cm, 09/11/21 10:23:00 E... Start Date: 09/28/21 Stop Date: 04/26/22 Status: Orderedsimvastatin 40 mg oral tablet 1, tablet, By Mouth, Daily at bedtime, # 30 tablet, Refills 5, Maintenance, 12/19/21 13:36:00 EST, Route to Pharmacy Electronically, [facility], 167, cm, 10/20/21 11:25:00 EDT, Height Start Date: 12/19/21 Status: OrderedToujeo SoloStar 300 units/mL subcutaneous solution = 45 units, Subcutaneous Infusion, Daily, # 6 mL, 11 Refills, Maintenance, 02/21/22 12:41:00 EST, [facility], Partial fill upon patient request if the prescription is for a scheduleII opioid drug., 167, cm, 10/20/21 11:25:00 EDT,... Start Date: 02/21/22 Stop Date: 02/16/23 Status: OrderedTrulicity Pen 1.5 mg/0.5 mL subcutaneous solution 0.5 mL = 1.5 mg, Subcutaneous Injection, Every week, rotate injection sites, # 2.5 mL, 11 Refills, Maintenance, 10/20/21 11:38:00 EDT, Solution, [facility] [...] 16:44:57 EDT, Compound Start Date: 10/09/18 Status: Ordered Problem List Condition Confirmation Course Effective Status Health Informa nt Dates Status Hypertension Confirmed Active Hypertriglyceridemia Confirmed Active Migraines Confirmed Active MDD (major depressive Confirmed Active disorder), recurrent severe, without psychosis Uncontrolled type 2 Confirmed Active diabetes mellitus Social History Social History Type Response Smoking Status Never (less than 100 in life time) entered on: 06/12/18 Sex Patient Care team information Care Team PersonnelName: Justin MIMS, Ly Rivers Position: [facility] PCO Associate Professional Member Role: PCP Address: Address: [address] [place] [address]- Care Team Related PersonsName: AURELIANO COLLADO Address: [address] [place] [address] Name: STEVIE COLLADO Address: [address] [place] [address]
--- OUTSIDE RECORDS SUMMARY | 2022-04-30 00:37 | XMS_ITS | Continuity of Care Document ---
:1960 Author Organization [facility] D sorenarunmelissa Address [address] [phone]- Care Team Providers Name Role Phone Justin MIMS, Ly Rivers Primary Care Physician [phone] [place] [facility] [place] 01/17/22 [facility] [address] [place] [id number] Allergies, Adverse Reactions, Alerts No Known [...] Comment: FLU [facility] 62568-536-85 Medications amitriptyline 25 mg oral tablet 2, tablet, By Mouth, Daily at bedtime, # 60 tablet, Refills 7, Route to Pharmacy Electronically, [facility], 167, cm, 08/03/21 14:26:00 EDT, Height Start Date: 08/15/21 Status: Orderedcetirizine 10 mg oral tablet 1 tablet = 10 mg, By Mouth, Daily, # 14 tablet, 0 Refills, Maintenance, 05/26/20 8:18:00 EDT, Tablet, [facility], Sami instructions, 167, cm, 04/19/20 9:56:00 EST, Height Start Date: 05/26/20 Stop Date: 06/09/20 Status: Ordereddulaglutide 1.5 mg/0.5 mL subcutaneous solution 0.5 mL = 1.5 mg, Subcutaneous Injection, Every week, # 4 each, 11 Refills, Maintenance, 07/20/21 9:20:00 EDT, Solution, [facility], Partial fill upon patient request [...] 0 Refills, Maintenance, 08/16/21 16:27:00 EDT, Ointment, [facility],... Start Date: 08/16/21 Status: OrderedhydrOXYzine hydrochloride 25 mg oral tablet 1 tablet = 25 mg, By Mouth, 3 times a day, PRN for itching, # 90 tablet, 0 Refills, Maintenance, 08/23/20 11:33:00 EDT, Tablet, [facility], Partial fill upon patient request if the prescription is for a schedule II opioid drug., 16... Start Date: 08/23/20 Stop Date: 09/22/20 Status: OrderedJardiance 25 mg oral tablet 1 tablet, By Mouth, Daily in AM, # 30 tablet, 2 Refills, Maintenance, 01/15/22 17:01:00 EST, [facility], 167, cm, 10/20/21 11:25:00 EDT, Height Start Date: 01/15/22 Status: OrderedLantus Solostar Pen 100 units/mL subcutaneous solution See Instructions, INJECT 45 UNITS SUBCUTANEOUSLY EVERY EVENING WITH DINNER. ROTATE INJECTION SITES. e11.9, 30 day supply, # 30 mL, 5 Refills, 12/18/21 15:31:00 EST, [facility], 167,cm, 10/20/21 11:25:00 EDT, Height Start Date: 12/18/21 Status: Orderedlisinopril 30 mg oral tablet See Instructions, TAKE 1 TABLET BY MOUTH EVERYDAY AT NOON, # 30 tablet, 2 Refills, Maintenance, 12/19/21 14:24:00 EST, [facility], 167, cm, 10/20/21 11:25:00 EDT, Height Start Date: 12/19/21 Status: OrderedmetFORMIN 1000 mg oral tablet See Instructions, TAKE 1 TABLET BY MOUTH TWICE DAILY IN THE MORNING AND AT BEDTIME, # 180 tablet, 1 Refills, 12/20/21 9:36:00 EST, [facility], 167, cm, 10/20/21 11:25:00 EDT, Height Start Date: 12/20/21 Status: OrderedMetroCream 0.75% topical cream 1 application, Topically, 2 times a day, to facial rash, after washing, # 45 Gm, 0 Refills, Maintenance, 09/11/21 11:03:00 EDT, Cream, [facility], Partial fill upon patient request if the prescription is for a schedule II opioid dr... Start Date: 09/11/21 Status: Orderedomeprazole 20 mg oral delayed release tablet 1 tablet = 20 mg, By Mouth, Daily, PRN for acid reflux, for 30 days, # 30 tablet, 11 Refills, Acute 07/15/22 9:24:00 EDT, 07/20/21 9:24:00 EDT, [facility], 167, cm, 07/20/21 8:40:00EDT, Height Start Date: 07/20/21 Stop Date: 07/15/22 Status: OrderedPen [place], 31 G x 5 mm BD Ultra [...] 0 Refills, Maintenance, 03/17/20 8:42:00 EST, Aerosol, [facility], Partial fill upon patient request if the prescription is for a schedule II opioid drug., 1 pu... Start Date: 03/17/20 Stop Date: 04/16/20 Status: Orderedsertraline 25 mg oral tablet 1 tablet = 25 mg, By Mouth, Daily, # 30 tablet, 6 Refills, Maintenance, 09/28/21 9:11:00 EDT, Tablet, [facility], Partial fill upon patient request if the prescription is for a schedule II opioid drug., 167, cm, 09/11/21 10:23:00 E... Start Date: 09/28/21 Stop Date: 04/26/22 Status: Orderedsimvastatin 40 mg oral tablet 1, tablet, By Mouth, Daily at bedtime, # 30 tablet, Refills 5, Maintenance, 12/19/21 13:36:00 EST, Route to Pharmacy Electronically, [facility], 167, cm, 10/20/21 11:25:00 EDT, Height Start Date: 12/19/21 Status: OrderedTrulicity Pen 1.5 mg/0.5 mL subcutaneous solution 0.5 mL = 1.5 mg, Subcutaneous Injection, Every week, rotate injection sites, # 2.5 mL, 11 Refills, Maintenance, 10/20/21 11:38:00 EDT, Solution, [facility], Partial fill upon patient request [...] 30 capsule, 5 Refills, 09/07/21 15:33:00 EDT, [facility], 167, cm, 08/16/21 16:12:00 EDT, Height Start Date: 09/07/21 Status: Ordered Problem List Condition Confirmation Course [...] Team PersonnelName: Justin MIMS, Ly Rivers Position: [facility] PCO Associate Professional Member Role: PCP Address: Address: [address] [facility] [address] [place] [address]- Care Team Related PersonsName: AURELIANO COLLADO Address: home [address] [place] [address] Name: STEVIE COLLADO Address: home [address] [place] [address]
--- OUTSIDE RECORDS SUMMARY | 2022-04-30 00:37 | XMS_ITS | Continuity of Care Document ---
:1960 Author Organization [facility] Adult Address [address] [place] [address]- Care Team Providers Name Role Phone Justin MIMS, Ly Rivers Primary Care Physician Encounter [facility] [place] Date(s): 08/23/20 - 08/30/20 [facility] Adult [address] [place] [address]- Encounter Diagnosis Rash (Discharge Diagnosis) - 08/23/20 Attending Physician: Ly Anderson NP Allergies, Adverse [...] FLU [facility] [id number] Medications amitriptyline 25 mg oral tablet 50 mg, 2, tablet, By Mouth, Daily at bedtime, 2 tab at bedtime. print in sami please, # 60 tablet, Refills 7, Tot. Refills 7, Maintenance, 04/14/20 13:04:00 EST, Route to Pharmacy Electronically, [facility], 167, cm, 03/17/20 7... Start Date: 04/14/20 Stop Date: 12/10/20 Status: Orderedcetirizine 10 mg oral tablet 1 tablet = 10 mg, By Mouth, Daily, # 14 tablet, 0 Refills, Maintenance, 05/26/20 8:18:00 EDT, Tablet, [facility], [place] instructions, 167, cm, 04/19/20 9:56:00 EST, Height [...] 0 Refills, Maintenance, 08/23/20 11:33:00 EDT, Tablet, [facility], Partial fill upon patient request if the prescription is for a schedule II opioid drug., 16... Start Date: 08/23/20 Stop Date: 09/22/20 Status: OrderedJardiance 10 mg oral tablet 1 tablet, By Mouth, Daily in AM, # 30 tablet, 4 Refills, Maintenance, 07/21/20 8:45:00 EDT, [facility], 167, cm, 06/01/20 12:40:00 EDT, Height Start Date: 07/21/20 Status: OrderedLantus Solostar Pen 100 units/mL subcutaneous solution See Instructions, INJECT 45 UNITS EVERY EVENING WITH DINNER. ROTATE INJECTION SITES, # 15 mL, 3 Refills, Maintenance, [facility], 167, cm, 06/01/20 12:40:00 EDT, Height Start Date: 07/18/20 Status: Orderedlisinopril 30 mg oral tablet 1 tablet = 30 mg, By Mouth, Daily, # 30 tablet, 5 Refills, Maintenance, 05/24/20 10:42:00 EDT, Tablet, [facility], 167, cm, 04/19/20 9:56:00 EST, Height Start Date: 05/24/20 Stop Date: 11/20/20 Status: OrderedmetFORMIN 1000 mg oral tablet 1 tablet = 1,000 mg, By Mouth, 2 times a day, # 60 tablet, 5 Refills, Maintenance, 06/15/20 10:42:00EDT, Tablet, [facility], 167, cm, 06/01/20 12:40:00 EDT, Height Start Date: 06/15/20 Stop Date: 12/12/20 Status: Orderedomeprazole 20 mg oral delayed release tablet 1 tablet = 20 mg, By Mouth, Daily, # 30 tablet, 11 Refills, Maintenance, 08/17/20 13:14:00 EDT, [facility], 167, cm, 06/01/20 12:40:00 EDT, Height Start Date: 08/17/20 Stop Date: 08/12/21 Status: OrderedPen [place], 31 G x 5 mm BD Ultra [...] 0 Refills, Maintenance, 03/17/20 8:42:00 EST, Aerosol, [facility], Partial fill upon patient request if the prescription is for a schedule II opioid drug., 1 pu... Start Date: 03/17/20 Stop Date: 04/16/20 Status: Orderedsimvastatin 40 mg oral tablet 40 mg, 1, tablet, By Mouth, Daily at bedtime, # 90 tablet, Refills 0, Tot. Refills 0, Hard Stop 09/19/20 10:17:00 EDT, 03/23/20 10:17:00 EST, Route to Pharmacy Electronically, [facility], 167, cm, 03/17/20 7:33:00 EST, Height Start Date: 03/23/20 Stop Date: 09/19/20 Status: Orderedsimvastatin 40 mg oral tablet 40 mg, 1, tablet, By Mouth, Daily at bedtime, # 90 tablet, Refills 1, Tot. Refills 1, Maintenance, 09/19/20 10:17:00 EDT, Route to Pharmacy Electronically, [facility], 167, cm, 06/01/20 12:40:00 EDT, Height Start Date: 09/19/20 Status: OrderedTrulicity Pen 0.75 mg/0.5 mL subcutaneous solution = 0.75 mg, Intramuscular, Every week, # 2 mL, 5 Refills, Maintenance, 05/15/20 12:22:00 EDT, [facility], 167, cm, 04/19/20 [...] 30 capsule, 5 Refills, 03/15/20 7:53:00 EST, [facility], 167, cm, 03/03/20 12:52:00 EST, Height Start Date: 03/15/20 Status: Ordered Problem List Condition Effective Dates Status Health Status Informant Diabetes(Confirmed) Active Hypertension(Confirmed) Active Hypertriglyceridemia(Confirmed) Active Migraines(Confirmed) Active Uncontrolled type 2 diabetes Active mellitus(Confirmed) Diagnosis Diagnosis Type Effective Dates Health Status Clinical Serv ice Informant Rash Discharge 08/23/20 Diagnosis Vital Signs Most recent to oldest [Reference Range]: 1 2 Height 167 cm 167 cm (08/23/20 11:40 AM) (08/23/20 11:11 AM) Weight 81.1 kg (08/23/20 11:11 AM) Oxygen Saturation [94-100 %] 99 % (08/23/20 11:11 AM) Pulse Rate [55-90 bpm] 79 bpm (08/23/20 11:11 AM) Body Mass Index [18.5-24.99] 29.08 *H* (08/23/20 11:11 AM) Blood Pressure [90-138/55-84 mm Hg] 118/70 mm Hg 117/ 70 mm Hg (08/23/20 11:40 AM) (08/23/20 11:11 AM) Mode of Delivery (Oxygen) Room air (08/23/20 11:11 AM) Blood pressure sites Arm, left Arm, left (08/23/20 11:40 AM) (08/23/20 11:11 AM) Weight Obtained Via Standing scale (08/23/20 11:11 AM) Social History Social History Type Response Smoking Status Never (less than 100 in life time) entered on: 06/12/18 Sex
--- OUTSIDE RECORDS SUMMARY | 2022-04-30 00:37 | XMS_ITS | Continuity of Care Document ---
:1960 Author Organization [facility] Adult Address [address] [place] [address]- Care Team Providers Name Role Phone Justin MIMS, Ly Rivers Primary Care Physician Encounter [facility] [place] Date(s): 06/08/19 - 06/15/19 [facility] Adult [address] [place] [id number] [facility] Encounter Diagnosis Diabetes (Discharge Diagnosis) - 06/08/19 Laceration of left leg (Discharge Diagnosis) - 06/08/19 Attending Physician: Ly Anderson NP Allergies, Adverse [...] toxoids (Td) 05/20/07 Recorded 1Result Comment: FLU [facility] 60055-281-35 Medications amitriptyline 25 mg oral tablet 50 mg, 2, tablet, By Mouth, Daily at bedtime, 2 tab at bedtime. print in swazi please, # 60 tablet, Refills 6, Tot. Refills 6, Maintenance, 04/21/19 10:06:00 EDT, Route to Pharmacy Electronically, [facility], 167, cm, [...] tablet, 4 Refills, Maintenance, 04/30/19 16:56:00 EDT,Tablet, [facility], 167, cm, 04/30/19 8:51:00 EDT, Height Start Date: 04/30/19 Stop Date: 09/27/19 Status: OrderedLantus Solostar Pen 100 units/mL subcutaneous solution = 45 units, Subcutaneous Injection, Daily at bedtime, rotate injection sites with evening meal, # 15mL, 3 Refills, Maintenance, 05/12/19 14:23:00 EDT, Injection, [facility], dose increase, 167, cm, 05/12/19 13:30:00 EDT, Height Start Date: 05/12/19 Stop Date: 09/09/19 Status: Orderedlisinopril 30 mg oral tablet 1 tablet = 30 mg, By Mouth, Daily, # 30 tablet, 5 Refills, Maintenance, 05/04/19 9:58:00 EDT, Tablet, [facility], 167, cm, 04/30/19 8:51:00 EDT, Height Start Date: 05/04/19 Stop Date: 10/31/19 Status: OrderedmetFORMIN 1000 mg oral tablet 1 tablet = 1,000 mg, By Mouth, 2 times a day, # 60 tablet, 5 Refills, Maintenance, 03/09/19 14:35:00EST, Tablet, [facility], 167, cm, [...] 03/09/19 14:28:00 EST, Route to Pharmacy Electronically, [facility] - , 167, cm,11/18/18 14:43:00 EDT, Height Start Date: 03/09/19 Stop Date: 09/05/19 Status: OrderedTrulicity Pen 1.5 mg/0.5 mL subcutaneous solution 0.5 mL = 1.5 mg, Subcutaneous Injection, Every week, rotate injection sites, # 2 mL, 11 Refills, Maintenance, 05/12/19 14:21:00 EDT, Solution, [facility], 167, cm, 05/12/19 13:30:00EDT, [...] 3 Refills, Maintenance, 03/09/19 11:00:00 EST, Capsule, [facility] - , 167, cm, 11/18/18 14:43:00 EDT, Height Start Date: 03/09/19 Stop Date: 07/07/19 Status: Ordered Problem List Condition Effective Dates Status Health Status Informant Diabetes(Confirmed) Active Hypertension(Confirmed) Active Hypertriglyceridemia(Confirmed) Active Migraines(Confirmed) Active Uncontrolled type 2 diabetes Active mellitus(Confirmed) Diagnosis Diagnosis Type Effective Dates Health Clinical Infor mant Status Service Diabetes Discharge 06/08/19 Diagnosis Laceration of Discharge 06/08/19 left leg Diagnosis Social History Social History Type Response Smoking Status Never (less than 100 in life time) entered on: 06/12/18 Sex
--- OUTSIDE RECORDS SUMMARY | 2022-04-30 00:37 | XMS_ITS | Continuity of Care Document ---
:1960 Author Organization [facility] Adult Address [address] [place] [address]- Care Team Providers Name Role Phone Justin MIMS, Ly Rivers Primary Care Phys[id number]17/19 [facility] Adult [address] [place] [address] [facility] Encounter Diagnosis Foot injury (Discharge Diagnosis) - 03/10/19 Diabetes (Discharge Diagnosis) - 03/10/19 Hypertension (Discharge Diagnosis) - 03/10/19 Left foot pain (Discharge Diagnosis) - 03/10/19 Right arm pain (Discharge Diagnosis) - 03/10/19 Attending Physician: Ly Anderson NP Referring Physician: [facility] ALATORRE, [facility] Allergies, Adverse Reactions, Alerts Substance Reaction Severity [...] Recorded 1Result Comment: FLU [facility] [id number] Medications amitriptyline 25 mg oral tablet 50 mg, 2, tablet, By Mouth, Daily at bedtime, week 1 take 1 tab, then increase to 2 tab at bedtime. print in luxembourger please, # 60 tablet, Refills 5, Tot. Refills 5, Maintenance, 10/17/18 10:29:25 EDT, Route to Pharmacy Electronically, [id number]... Start Date: 10/17/18 Stop Date: 04/15/19 Status: [...] tablet, 5 Refills, Maintenance, 03/09/19 14:35:00EST, Tablet, [facility], 167, cm, 11/18/18 14:43:00 EDT, Height Start Date: 03/09/19 Stop Date: 09/05/19 Status: OrderedNaprosyn 500 mg oral tablet 1 tablet = 500 mg, By Mouth, 2 times a day, for 10 days, # 20 tablet, 0 Refills, Acute 03/20/19 8:12:00 EST, 03/10/19 8:12:00 EST, Tablet, [facility], 167, cm, 03/10/19 7:51:00EST, Height Start Date: 03/10/19 Stop Date: 03/20/19 Status: Orderedomeprazole 20 mg oral delayed release tablet 1 tablet = 20 mg, By Mouth, Daily, # 30 tablet, 11 Refills, Maintenance, 08/18/18 9:49:46 EDT Start Date: 08/18/18 Stop Date: 08/13/19 Status: Orderedsimvastatin 40 mg oral tablet 40 mg, 1, tablet, By Mouth, Daily at bedtime, # 30 tablet, Refills 5, Tot. Refills 5, Maintenance, 03/09/19 14:28:00 EST, Route to Pharmacy Electronically, [facility] - , 167, cm,11/18/18 14:43:00 [...] 3 Refills, Maintenance, 03/09/19 11:00:00 EST, Capsule, [facility] - , 167, cm, 11/18/18 14:43:00 EDT, Height Start Date: 03/09/19 Stop Date: 07/07/19 Status: Ordered Problem List Condition Effective Dates Status Health Status Informant Diabetes(Confirmed) Active Hypertension(Confirmed) Active Migraines(Confirmed) Active Diagnosis Diagnosis Type Effective Dates Health Status Clinical In formant Service Foot injury Discharge 03/10/19 Diagnosis Diabetes Discharge 03/10/19 Diagnosis Hypertension Discharge 03/10/19 Diagnosis Left foot pain Discharge 03/10/19 Diagnosis Right arm pain Discharge 03/10/19 Diagnosis Vital Signs Most recent to oldest [Reference Range]: 1 2 Height 167 cm 167 cm (03/10/19 8:20 AM) (03/10/19 7:51 AM) Weight 85.3 kg (03/10/19 7:51 AM) Oxygen Saturation [94-100 %] 96 % (03/10/19 7:51 AM) Pulse Rate [55-90 bpm] 81 bpm (03/10/19 7:51 AM) Body Mass Index [18.5-24.99] 30.59 *>HHI* (03/10/19 7:51 AM) Blood Pressure [90-138/55-84 mm Hg] 138/78 mm Hg 130/ 72 mm Hg (03/10/19 8:20 AM) (03/10/19 7:51 AM) Mode of Delivery (Oxygen) Room air (03/10/19 7:51 AM) Blood pressure sites Arm, left Arm, left (03/10/19 8:20 AM) (03/10/19 7:51 AM) Weight Obtained Via Standing scale (03/10/19 7:51 AM) Social History Social History Type Response Smoking Status Never (less than 100 in life time) entered on: 06/12/18 Sex
--- OUTSIDE RECORDS SUMMARY | 2022-04-30 00:37 | XMS_ITS | Continuity of Care Document ---
:1960 Author Organization [facility] Adult Address [address] [place] [address]- Care Team Providers Name Role Phone Justin MIMS, Ly Rivers Primary Care Phys[id number] Date[facility]/12[facility] - 05/19/[address] [facility] Adult [address] [place] [phone] [facility] Encounter Diagnosis Uncontrolled type 2 diabetes mellitus (Discharge Diagnosis) - 05/12/19 Hypertension (Discharge Diagnosis) - 05/12/19 Hypertriglyceridemia (Discharge Diagnosis) - 05/12/19 Attending Physician: Not on Staff, Attending MD Allergies, Adverse Reactions, Alerts Substance Reaction [...] toxoids (Td) 05/20/07 Recorded 1Result Comment: FLU [facility] [id number] Medications amitriptyline 25 mg oral tablet 50 mg, 2, tablet, By Mouth, Daily at bedtime, 2 tab at bedtime. print in nepali please, # 60 tablet, Refills 6, Tot. Refills 6, Maintenance, 04/21/19 10:06:00 EDT, Route to Pharmacy Electronically, [facility], 167, cm, 03/17... [...] tablet, 4 Refills, Maintenance, 04/30/19 16:56:00 EDT,Tablet, [facility], 167, cm, 04/30/19 8:51:00 EDT, Height Start Date: 04/30/19 Stop Date: 09/27/19 Status: OrderedLantus Solostar Pen 100 units/mL subcutaneous solution = 45 units, Subcutaneous Injection, Daily at bedtime, rotate injection sites with evening meal, # 15mL, 3 Refills, Maintenance, 05/12/19 14:23:00 EDT, Injection, [facility], dose increase, 167, cm, 05/12/19 13:30:00 EDT, Height Start Date: 05/12/19 Stop Date: 09/09/19 Status: Orderedlisinopril 30 mg oral tablet 1 tablet = 30 mg, By Mouth, Daily, # 30 tablet, 5 Refills, Maintenance, 05/04/19 9:58:00 EDT, Tablet, [facility], 167, cm, 04/30/19 8:51:00 EDT, Height Start Date: 05/04/19 Stop Date: 10/31/19 Status: OrderedmetFORMIN 1000 mg oral tablet 1 tablet = 1,000 mg, By Mouth, 2 times a day, # 60 tablet, 5 Refills, Maintenance, 03/09/19 14:35:00EST, Tablet, [facility], 167, cm, 11/18/18 [...] 03/09/19 14:28:00 EST, Route to Pharmacy Electronically, [facility] - , 167, cm,11/18/18 14:43:00 EDT, Height Start Date: 03/09/19 Stop Date: 09/05/19 Status: OrderedTrulicity Pen 1.5 mg/0.5 mL subcutaneous solution 0.5 mL = 1.5 mg, Subcutaneous Injection, Every week, rotate injection sites, # 2 mL, 11 Refills, Maintenance, 05/12/19 14:21:00 EDT, Solution, [facility], 167, cm, 05/12/19 13:30:00EDT, Height [...] 3 Refills, Maintenance, 03/09/19 11:00:00 EST, Capsule, [facility] - , 167, cm, 11/18/18 14:43:00 EDT, Height Start Date: 03/09/19 Stop Date: 07/07/19 Status: Ordered Problem List Condition Effective Dates Status Health Status Informant Diabetes(Confirmed) Active Hypertension(Confirmed) Active Hypertriglyceridemia(Confirmed) Active Migraines(Confirmed) Active Uncontrolled type 2 diabetes Active mellitus(Confirmed) Diagnosis Diagnosis Type Effective Health Clinical Informant Dates Status Service Uncontrolled type 2 Discharge 05/12/19 diabetes mellitus Diagnosis Hypertension Discharge 05/12/19 Diagnosis Hypertriglyceridemia Discharge 05/12/19 Diagnosis Vital Signs Most recent to oldest [Reference Range]: 1 Height 167 cm (05/12/19 1:30 PM) Weight 83.0 kg (05/12/19 1:30 PM) Oxygen Saturation [94-100 %] 98 % (05/12/19 1:30 PM) Pulse Rate [55-90 bpm] 82 bpm (05/12/19 1:30 PM) Body Mass Index [18.5-24.99] 29.76 *H* (05/12/19 1:30 PM) Blood Pressure [90-138/55-84 mm Hg] 130/70 mm Hg (05/12/19 1:30 PM) Respiratory Rate [16-30 br/min] 16 br/min (05/12/19 1:30 PM) Mode of Delivery (Oxygen) Room air (05/12/19 1:30 PM) Blood pressure sites Arm, right (05/12/19 1:30 PM) Temperature Route Oral (05/12/19 1:30 PM) Weight Obtained Via Standing scale (05/12/19 1:30 PM) Social History Social History Type Response Smoking Status Never (less than 100 in life time) entered on: 06/12/18 Sex
--- OUTSIDE RECORDS SUMMARY | 2022-04-30 00:38 | XMS_ITS | Continuity of Care Document ---
:1960 Author Organization [facility] d[facility] Address [address] [place] [address]- Care Team Providers Name Role Phone Justin MIMS, Ly Rivers Primary Care Physician [phone] Encounter [facility] Date(s): 10/20/21 - 11/19/21 [facility] [address] [place] [id number] Attending Physician: Admtr, Ar8 Admitting Physician: Admtr, Ar8 Referring Physician: Admtr, [...] [facility] [id number] Medications amitriptyline 25 mg oral tablet 2, tablet, By Mouth, Daily at bedtime, # 60 tablet, Refills 7, Route to Pharmacy Electronically, [facility], 167, cm, 08/03/21 14:26:00 EDT, Height Start Date: 08/15/21 Status: Orderedcetirizine 10 mg oral tablet 1 tablet = 10 mg, By Mouth, Daily, # 14 tablet, 0 Refills, Maintenance, 05/26/20 8:18:00 EDT, Tablet, [facility], [place] instructions, 167, cm, 04/19/20 9:56:00 EST, Height Start Date: 05/26/20 Stop Date: 06/09/20 Status: Ordereddulaglutide 1.5 mg/0.5 mL subcutaneous solution 0.5 mL = 1.5 mg, Subcutaneous Injection, Every week, # 4 each, 11 Refills, Maintenance, 07/20/21 9:20:00 EDT, Solution, [facility], Partial fill upon patient [...] 0 Refills, Maintenance, 08/16/21 16:27:00 EDT, Ointment, [facility],... Start Date: 08/16/21 Status: OrderedhydrOXYzine hydrochloride 25 mg oral tablet 1 tablet = 25 mg, By Mouth, 3 times a day, PRN for itching, # 90 tablet, 0 Refills, Maintenance, 08/23/20 11:33:00 EDT, Tablet, [facility], Partial fill upon patient request if the prescription is for a schedule II opioid drug., 16... Start Date: 08/23/20 Stop Date: 09/22/20 Status: OrderedJardiance 25 mg oral tablet 1 tablet, By Mouth, Daily in AM, # 30 tablet, 2 Refills, Maintenance, 11/01/21 10:29:00 EDT, [facility], 167, cm, 10/20/21 11:25:00 EDT, Height Start Date: 11/01/21 Status: OrderedLantus Solostar Pen 100 units/mL subcutaneous solution See Instructions, INJECT 50 UNITS SUBCUTANEOUSLY EVERY EVENING WITH DINNER. ROTATE INJECTION SITES.,# 15 mL, 5 Refills, 06/08/21 11:27:00 EDT, [facility], 167, cm, 05/17/21 15:37:00 EDT, Height Start Date: 06/08/21 Status: Orderedlisinopril 30 mg oral tablet See Instructions, TAKE 1 TABLET BY MOUTH EVERYDAY AT NOON, # 30 tablet, 2 Refills, [facility], 167, cm, 08/16/21 16:12:00 EDT, Height Start Date: 09/07/21 Status: OrderedmetFORMIN 1000 mg oral tablet See Instructions, TAKE 1 TABLET BY MOUTH TWICE DAILY IN THE MORNING AND AT BEDTIME, # 180 tablet, 1 Refills, 06/08/21 11:58:00 EDT, [facility], 167, cm, 05/17/21 15:37:00 EDT, Height Start Date: 06/08/21 Status: OrderedMetroCream 0.75% topical cream 1 application, Topically, 2 times a day, to facial rash, after washing, # 45 Gm, 0 Refills, Maintenance, 09/11/21 11:03:00 EDT, Cream, [facility], Partial fill upon patient request if the prescription is for a schedule II opioid dr... Start Date: 09/11/21 Status: Orderedomeprazole 20 mg oral delayed release tablet 1 tablet = 20 mg, By Mouth, Daily, PRN for acid reflux, for 30 days, # 30 tablet, 11 Refills, Acute 07/15/22 9:24:00 EDT, 07/20/21 9:24:00 EDT, [facility], 167, cm, 07/20/21 8:40:00EDT, Height Start Date: 07/20/21 Stop Date: 07/15/22 Status: OrderedPen [place], 31 G x 5 mm BD Ultra [...] 0 Refills, Maintenance, 03/17/20 8:42:00 EST, Aerosol, [facility], Partial fill upon patient request if the prescription is for a schedule II opioid drug., 1 pu... Start Date: 03/17/20 Stop Date: 04/16/20 Status: Orderedsertraline 25 mg oral tablet 1 tablet = 25 mg, By Mouth, Daily, # 30 tablet, 6 Refills, Maintenance, 09/28/21 9:11:00 EDT, Tablet, [facility], Partial fill upon patient request if the prescription is for a schedule II opioid drug., 167, cm, 09/11/21 10:23:00 E... Start Date: 09/28/21 Stop Date: 04/26/22 Status: Orderedsimvastatin 40 mg oral tablet 1, tablet, By Mouth, Daily at bedtime, # 90 tablet, Refills 1, Route to Pharmacy Electronically, [facility], 167, cm, 05/17/21 15:37:00 EDT, Height Start Date: 06/01/21 Status: OrderedTrulicity Pen 1.5 mg/0.5 mL subcutaneous solution 0.5 mL = 1.5 mg, Subcutaneous Injection, Every week, rotate injection sites, # 2.5 mL, 11 Refills, Maintenance, 10/20/21 11:38:00 EDT, Solution, [facility], Partial fill upon patient [...] 30 capsule, 5 Refills, 09/07/21 15:33:00 EDT, [facility], 167, cm, 08/16/21 16:12:00 EDT, [...] on: 06/12/18 Sex Patient Care team information PersonnelName: Justin MIMS, Ly Rivers Address: Address: [address] [place] [address] [address] [place] [address]- [place]
--- OUTSIDE RECORDS SUMMARY | 2022-04-30 00:38 | XMS_ITS | Continuity of Care Document ---
:1960 Author Organization [facility] Address [address] [place] [address]- Care Team Providers Name Role Phone Justin MIMS, Ly Rivers Primary Care Physician [phone] Encounter [facility] Date(s): 05/08/19 - 05/18/[address] [address]- [facility] Attending Physician: Trevon Walls Admitting Physician: Admtr, [...] toxoids (Td) 05/20/07 Recorded 1Result Comment: FLU [facility] [id number] Medications amitriptyline 25 mg oral tablet 50 mg, 2, tablet, By Mouth, Daily at bedtime, 2 tab at bedtime. print in hebrew please, # 60 tablet, Refills 6, Tot. Refills 6, Maintenance, 04/21/19 10:06:00 EDT, Route to Pharmacy Electronically, [facility], 167, cm, 03/17... [...] tablet, 4 Refills, Maintenance, 04/30/19 16:56:00 EDT,Tablet, [facility], 167, cm, 04/30/19 8:51:00 EDT, Height Start Date: 04/30/19 Stop Date: 09/27/19 Status: OrderedLantus Solostar Pen 100 units/mL subcutaneous solution = 45 units, Subcutaneous Injection, Daily at bedtime, rotate injection sites with evening meal, # 15mL, 3 Refills, Maintenance, 05/12/19 14:23:00 EDT, Injection, [facility], dose increase, 167, cm, 05/12/19 13:30:00 EDT, Height Start Date: 05/12/19 Stop Date: 09/09/19 Status: Orderedlisinopril 30 mg oral tablet 1 tablet = 30 mg, By Mouth, Daily, # 30 tablet, 5 Refills, Maintenance, 05/04/19 9:58:00 EDT, Tablet, [facility], 167, cm, 04/30/19 8:51:00 EDT, Height Start Date: 05/04/19 Stop Date: 10/31/19 Status: OrderedmetFORMIN 1000 mg oral tablet 1 tablet = 1,000 mg, By Mouth, 2 times a day, # 60 tablet, 5 Refills, Maintenance, 03/09/19 14:35:00EST, Tablet, [facility], 167, cm, 11/18/18 [...] 03/09/19 14:28:00 EST, Route to Pharmacy Electronically, [facility] - , 167, cm,11/18/18 14:43:00 EDT, Height Start Date: 03/09/19 Stop Date: 09/05/19 Status: OrderedTrulicity Pen 1.5 mg/0.5 mL subcutaneous solution 0.5 mL = 1.5 mg, Subcutaneous Injection, Every week, rotate injection sites, # 2 mL, 11 Refills, Maintenance, 05/12/19 14:21:00 EDT, Solution, [facility], 167, cm, 05/12/19 13:30:00EDT, Height [...] 3 Refills, Maintenance, 03/09/19 11:00:00 EST, Capsule, [facility] - , 167, cm, 11/18/18 [...]
--- OUTSIDE RECORDS SUMMARY | 2022-04-30 00:38 | XMS_ITS | Continuity of Care Document ---
:1960 Author Organization [facility] Address [address] [place] [address]- Care Team Providers Name Role Phone Justin MIMS, Ly Rivers Primary Care Physician [phone] [place] [facility] [place]s): 04/19/20 - 04/26/20 [facility] [address] [place] [address]- Encounter Diagnosis Uncontrolled type 2 diabetes mellitus (Discharge Diagnosis) - 04/19/20 Diabetes (Discharge Diagnosis) - 04/19/20 Hypertension (Discharge Diagnosis) - 04/19/20 Hypertriglyceridemia (Discharge Diagnosis) - 04/19/20 Migraines (Discharge Diagnosis) - 04/19/20 Attending Physician: Ly Anderson NP Allergies, Adverse [...] Recorded 1Result Comment: FLU [facility] [id number] Medications amitriptyline 25 mg oral tablet 50 mg, 2, tablet, By Mouth, Daily at bedtime, 2 tab at bedtime. print in croatian please, # 60 tablet, Refills 7, Tot. Refills 7, Maintenance, 04/14/20 13:04:00 EST, Route to Pharmacy Electronically, [facility], 167, cm, 03/17/20 7... Start [...] tablet, 4 Refills, Maintenance, 02/24/20 10:42:00 EST,Tablet, [facility], 167, cm, 12/25/19 10:26:00 EST, Height Start Date: 02/24/20 Stop Date: 07/23/20 Status: OrderedLantus Solostar Pen 100 units/mL subcutaneous solution = 45 units, Subcutaneous Injection, Daily at bedtime, rotate injection sites with evening meal, # 15mL, 3 Refills, Maintenance, 02/23/20 14:16:00 EST, Injection, [facility], dose increase, 167, cm, 12/25/19 10:26:00 EST, Height Start Date: 02/23/20 Stop Date: 06/22/20 Status: Orderedlisinopril 30 mg oral tablet 1 tablet = 30 mg, By Mouth, Daily, # 30 tablet, 2 Refills, Maintenance, 02/24/20 10:42:00 EST, Tablet, [facility], 167, cm, 12/25/19 10:26:00 EST, Height Start Date: 02/24/20 Stop Date: 05/24/20 Status: OrderedmetFORMIN 1000 mg oral tablet 1 tablet = 1,000 mg, By Mouth, 2 times a day, # 60 tablet, 2 Refills, Maintenance, 03/23/20 10:18:00EST, Tablet, [facility], 167, cm, 03/17/20 7:33:00 EST, Height Start Date: 03/23/20 Stop Date: 06/21/20 Status: Orderedomeprazole 20 mg oral delayed release tablet 1 tablet = 20 mg, By Mouth, Daily, # 30 tablet, 11 Refills, Maintenance, 09/03/19 21:29:00 EDT, [facility], 167, cm, 08/21/19 16:17:00 EDT, Height Start Date: 09/03/19 Stop Date: 08/28/20 Status: OrderedPen [place], 31 G x 5 mm BD Ultra [...] 0 Refills, Maintenance, 03/17/20 8:42:00 EST, Aerosol, [facility], Partial fill upon patient request if the prescription is for a schedule II opioid drug., 1 pu... Start Date: 03/17/20 Stop Date: 04/16/20 Status: Orderedsimvastatin 40 mg oral tablet 40 mg, 1, tablet, By Mouth, Daily at bedtime, # 90 tablet, Refills 0, Tot. Refills 0, Maintenance, 03/23/20 10:17:00 EST, Route to Pharmacy Electronically, [facility], 167, cm, 03/17/20 7:33:00 EST, Height Start Date: 03/23/20 Stop Date: 09/19/20 Status: OrderedTrulicity Pen 0.75 mg/0.5 mL subcutaneous solution = 0.75 mg, Intramuscular, Every week, # 4 each, 2 Refills, Maintenance, 02/15/20 12:22:00 EST, [facility], 167, cm, 12/25/19 10:26:00 EST, [...] 30 capsule, 5 Refills, 03/15/20 7:53:00 EST, [facility], 167, cm, 03/03/20 12:52:00 EST, Height Start Date: 03/15/20 Status: Ordered Problem List Condition Effective Dates Status Health Status Informant Diabetes(Confirmed) Active Hypertension(Confirmed) Active Hypertriglyceridemia(Confirmed) Active Migraines(Confirmed) Active Uncontrolled type 2 diabetes Active mellitus(Confirmed) Diagnosis Diagnosis Type Effective Health Clinical Informant Dates Status Service Uncontrolled type 2 Discharge 04/19/20 diabetes mellitus Diagnosis Diabetes Discharge 04/19/20 Diagnosis Hypertension Discharge 04/19/20 Diagnosis Hypertriglyceridemia Discharge 04/19/20 Diagnosis Migraines Discharge 04/19/20 Diagnosis Vital Signs Most recent to oldest [Reference Range]: 1 Height 167 cm (04/19/20 9:56 AM) Social History Social History Type Response Smoking Status Never (less than 100 in life time) entered on: 06/12/18 Sex
--- OUTSIDE RECORDS SUMMARY | 2022-04-30 00:38 | XMS_ITS | Continuity of Care Document ---
:1960 Author Organization [facility] Address [address] [place] [address]- Care Team Providers Name Role Phone Justin MIMS, Ly Rivers Primary Care Physician [phone] Encounter [facility] Date(s): 03/20/20 - 03/20/[address] [address]- Discharge Disposition: A-D/C Home Attending Physician: Kristine Meek MD, [place] Admitting Physician: Kristine Meek MD, [place] Referring Physician: Not on Staff, Referring MD Allergies, Adverse Reactions, Alerts Substance Reaction [...] (Td) 05/20/07 Recorded 1Result Comment: FLU [facility] [id number] Medications amitriptyline 25 mg oral tablet 50 mg, 2, tablet, By Mouth, Daily at bedtime, 2 tab at bedtime. print in greenlandic please, # 60 tablet, Refills 7, Tot. Refills 7, Maintenance, 10/15/19 13:03:00 EDT, Route to Pharmacy Electronically, [facility], 167, cm, 10/15/19 1... Start [...] tablet, 4 Refills, Maintenance, 02/24/20 10:42:00 EST,Tablet, [facility], 167, cm, 12/25/19 10:26:00 EST, Height Start Date: 02/24/20 Stop Date: 07/23/20 Status: OrderedLantus Solostar Pen 100 units/mL subcutaneous solution = 45 units, Subcutaneous Injection, Daily at bedtime, rotate injection sites with evening meal, # 15mL, 3 Refills, Maintenance, 02/23/20 14:16:00 EST, Injection, [facility], dose increase, 167, cm, 12/25/19 10:26:00 EST, Height Start Date: 02/23/20 Stop Date: 06/22/20 Status: Orderedlisinopril 30 mg oral tablet 1 tablet = 30 mg, By Mouth, Daily, # 30 tablet, 2 Refills, Maintenance, 02/24/20 10:42:00 EST, Tablet, [facility], 167, cm, 12/25/19 10:26:00 EST, Height Start Date: 02/24/20 Stop Date: 05/24/20 Status: OrderedmetFORMIN 1000 mg oral tablet 1 tablet = 1,000 mg, By Mouth, 2 times a day, # 60 tablet, 5 Refills, Maintenance, 10/02/19 13:18:00EDT, Tablet, [facility], 167, cm, 08/21/19 16:17:00 EDT, Height Start Date: 10/02/19 Stop Date: 03/30/20 Status: Orderedomeprazole 20 mg oral delayed release tablet 1 tablet = 20 mg, By Mouth, Daily, # 30 tablet, 11 Refills, Maintenance, 09/03/19 21:29:00 EDT, [facility], 167, cm, 08/21/19 16:17:00 EDT, Height Start Date: 09/03/19 Stop Date: 08/28/20 Status: OrderedPen [place], 31 G x 5 mm BD Ultra [...] 0 Refills, Maintenance, 03/17/20 8:42:00 EST, Aerosol, [facility], Partial fill upon patient request if the prescription is for a schedule II opioid drug., 1 pu... Start Date: 03/17/20 Stop Date: 04/16/20 Status: Orderedsimvastatin 40 mg oral tablet 40 mg, 1, tablet, By Mouth, Daily at bedtime, # 30 tablet, Refills 5, Tot. Refills 5, Maintenance, 09/29/19 14:25:00 EDT, Route to Pharmacy Electronically, [facility], 167, cm, 08/21/19 16:17:00 EDT, Height Start Date: 09/29/19 Stop Date: 03/27/20 Status: OrderedTrulicity Pen 0.75 mg/0.5 mL subcutaneous solution = 0.75 mg, Intramuscular, Every week, # 4 each, 2 Refills, Maintenance, 02/15/20 12:22:00 EST, [facility], 167, cm, 12/25/19 10:26:00 EST, [...] 30 capsule, 5 Refills, 03/15/20 7:53:00 EST, [facility], 167, cm, 03/03/20 12:52:00 EST, Height Start Date: 03/15/20 Status: Ordered Problem List Condition Effective Dates Status Health Status Informant Diabetes(Confirmed) Active Hypertension(Confirmed) Active Hypertriglyceridemia(Confirmed) Active Migraines(Confirmed) Active Uncontrolled type 2 diabetes Active mellitus(Confirmed) Results Radiology Reports Exam Date Time Procedure Performing Provider Status 03/20/20 2:58 PM Chest Portable Jada Alves; Medhat (Verified ) Notes:(Chest Portable) Reason For Exam: Shortness of BreathRESULT: Chest Portable Chest Portable Hx of Present Illness: pt recently DX'd with Covid one week ago. For the last three days she has been experiencing increased midsternal chest pain .Non radiating and reproduceable with inspiration.; Reason: Shortness of Breath; Clinical Question(s): CHF COMPARISON: None. FINDINGS: LINES AND TUBES: None. LUNGS AND PLEURA: Increased groundglass type opacity in the right lung base. Lungs otherwise clear. No pleural effusion. No pneumothorax. HEART, MEDIASTINUM AND RICHIE: Heart is normal in size. Normal upper mediastinal and hilar contour. BONES AND SOFT TISSUES: No acute abnormality. IMPRESSION: Right lung base groundglass opacity, consistent with pneumonia. WSN: [id number] Ordering Physician: Juan J Vaughn Dictated By: Meek Jackson MD Dictated Date/Time: 03/20/20 3:36 pm Reviewed By: Meek Jackson MD Signed By: Meek Jackson MD Signed Date/Time: 03/20/20 3:36 pm Transcribed By: PETER Transcribed Date/Time: 03/20/20 3:35 pm Vital Signs Most recent to oldest [Reference 1 2 3 Range]: Oxygen Saturation [94-100 %] 97 % 100 % 100 % (03/20/20 6:31 PM) (03/20/20 2:21 PM) (03/20/20 2:10 P M) Pulse Rate [55-90 bpm] 76 bpm 62 bpm 69 bpm (03/20/20 6:31 PM) (03/20/20 2:21 PM) (03/20/20 2:10 P M) Blood Pressure [90-138/55-84 mm 117/69 mm Hg 150/84 mm Hg 173/90 mm Hg Hg] (03/20/20 6:31 PM) *H* *H* (03/20/20 2:21 PM) (03/20/20 2:10 PM ) Respiratory Rate [16-30 br/min] 17 br/min 16 br/min 18 br/min (03/20/20 6:31 PM) (03/20/20 2:21 PM) (03/20/20 2:10 P M) Temperature [96.8-100.4 DegF] 98.7 DegF 98.7 DegF (03/20/20 2:21 PM) (03/20/20 2:10 PM) Mode of Delivery (Oxygen) Room air Room air Room a ir (03/20/20 6:31 PM) (03/20/20 2:21 PM) (03/20/20 2:10 P M) Blood pressure sites Arm, right Arm, left Arm, left (03/20/20 6:31 PM) (03/20/20 2:21 PM) (03/20/20 2:10 P M) Temperature Route Oral Oral (03/20/20 2:21 PM) (03/20/20 2:10 PM) Social History Social History Type Response Smoking Status Never (less than 100 in life time) entered on: 06/12/18 Sex
--- OUTSIDE RECORDS SUMMARY | 2022-04-30 00:38 | XMS_ITS | Continuity of Care Document ---
:1960 Author Organization [facility] Address [address] [place] [id number]- Care Team Providers Name Role Phone Justin MIMS, Ly Rivers Primary Care Physician En[place] [facility] Date(s): 05/04/21 - 06/03/[address] [address] Attending Physician: Trevon Walls Admitting Physician: AdmtrTrevon [...] Comment: FLU [facility] [id number] Medications amitriptyline 25 mg oral tablet 2, tablet, By Mouth, Daily at bedtime, # 60 tablet, Refills 7, Route to Pharmacy Electronically, [facility], 167, cm, 10/25/20 16:32:00 EDT, Height Start Date: 11/29/20 Status: Orderedcetirizine 10 mg oral tablet 1 tablet = 10 mg, By Mouth, Daily, # 14 tablet, 0 Refills, Maintenance, 05/26/20 8:18:00 EDT, Tablet, [facility], [place] instructions, 167, cm, 04/19/20 9:56:00 EST, Height Start Date: 05/26/20 Stop Date: 06/09/20 Status: OrderedFreestyle lite glucometer Freestyle lite glucometer, [...] 0 Refills, Maintenance, 08/23/20 11:33:00 EDT, Tablet, [facility], Partial fill upon patient request if the prescription is for a schedule II opioid drug., 16... Start Date: 08/23/20 Stop Date: 09/22/20 Status: OrderedJardiance 25 mg oral tablet 1 tablet = 25 mg, By Mouth, Daily in AM, # 30 tablet, 11 Refills, Maintenance, 10/25/20 16:03:00 EDT, Tablet, [facility], Partial fill upon patient request if the prescription is for a schedule II opioid drug., 167, cm, 10/25/20 15... Start Date: 10/25/20 Stop Date: 10/20/21 Status: OrderedLantus Solostar Pen 100 units/mL subcutaneous solution See Instructions, INJECT 45 UNITS SUBCUTANEOUSLY EVERY EVENING WITH DINNER. ROTATE INJECTION SITES.,# 15 mL, 5 Refills, [facility], 167, cm, 02/01/21 13:19:00 EST, Height Start Date: 02/11/21 Status: Orderedlisinopril 30 mg oral tablet See Instructions, TAKE 1 TABLET BY MOUTH EVERYDAY AT NOON, # 30 tablet, 3 Refills, [facility], 167, cm, 02/01/21 13:19:00 EST, Height Start Date: 02/09/21 Status: OrderedmetFORMIN 1000 mg oral tablet See Instructions, TAKE 1 TABLET BY MOUTH TWICE DAILY IN THE MORNING AND AT BEDTIME, # 60 tablet, 5 Refills, [facility], 167, cm, 10/25/20 16:32:00 EDT, Height Start Date: 11/29/20 Status: Orderedomeprazole 20 mg oral delayed release tablet 1 tablet = 20 mg, By Mouth, Daily, # 30 tablet, 11 Refills, Maintenance, 08/17/20 13:14:00 EDT, [facility], 167, cm, 06/01/20 12:40:00 EDT, Height Start Date: 08/17/20 Stop Date: 08/12/21 Status: OrderedPen [place], 31 G x 5 mm BD Ultra [...] 0 Refills, Maintenance, 03/17/20 8:42:00 EST, Aerosol, [facility], Partial fill upon patient request if the prescription is for a schedule II opioid drug., 1 pu... Start Date: 03/17/20 Stop Date: 04/16/20 Status: Orderedsimvastatin 40 mg oral tablet 1, tablet, By Mouth, Daily at bedtime, # 90 tablet, Refills 1, Route to Pharmacy Electronically, [facility], 167, cm, 05/17/21 15:37:00 EDT, Height Start Date: 06/01/21 Status: OrderedTrulicity Pen 0.75 mg/0.5 mL subcutaneous solution = 0.75 mg, Intramuscular, Every week, # 2 mL, 2 Refills, Maintenance, 05/10/21 11:26:00 EDT, [facility], 167, cm, 03/16/21 15:16:00 EST, Height Start Date: 05/10/21 Stop Date: 08/08/21 Status: OrderedUlticare pen needles 4mm 32g Ulticare pen needles 4mm 32g, See Instructions, # 200 each, Refills 2, Tot. Refills 2, Maintenance, use daily to test blood sugars dx e11.6, 10/09/18 16:44:57 EDT, Compound Start Date: 10/09/18 Status: OrderedVitamin D3 2000 intl units oral capsule See Instructions, TAKE 1 CAPSULE BY MOUTH EVERYDAY AT NOON, # 30 capsule, 5 Refills, [facility], 167, cm, 02/24/21 11:47:00 EST, Height Start Date: 03/05/21 Status: Ordered Problem List Condition Effective Dates Status Health Status Informant Hypertension(Confirmed) Active Hypertriglyceridemia(Confirmed) Active Migraines(Confirmed) Active Uncontrolled type 2 diabetes Active mellitus(Confirmed) Social History Social History Type Response Smoking Status Never (less than 100 in life time) entered on: 06/12/18 Sex
--- OUTSIDE RECORDS SUMMARY | 2022-04-30 00:38 | XMS_ITS | Continuity of Care Document ---
:1960 Author Organization [facility] Adult Address [address] [place] [address]- Care Team Providers Name Role Phone Justin MIMS, Ly Rivers Primary Care Physician [phone] Encounter [facility] [place] Date(s): 10/02/19 - 11/01/19 [facility] Adult [address] [place] [address]- [facility] Allergies, Adverse Reactions, Alerts Substance Reaction [...] Recorded 1Result Comment: FLU [facility] [id number] Medications amitriptyline 25 mg oral tablet 50 mg, 2, tablet, By Mouth, Daily at bedtime, 2 tab at bedtime. print in saudi arabian please, # 60 tablet, Refills 7, Tot. Refills 7, Maintenance, 10/15/19 13:03:00 EDT, Route to Pharmacy Electronically, [facility], 167, cm, 10/15/19 1... Start [...] tablet, 4 Refills, Maintenance, 09/23/19 11:28:00 EDT,Tablet, [facility], 167, cm, 08/21/19 16:17:00 EDT, Height Start Date: 09/23/19 Stop Date: 02/20/20 Status: OrderedLantus Solostar Pen 100 units/mL subcutaneous solution = 45 units, Subcutaneous Injection, Daily at bedtime, rotate injection sites with evening meal, # 15mL, 3 Refills, Maintenance, 09/25/19 8:59:00 EDT, Injection, [facility], dose increase, 167, cm, 08/21/19 16:17:00 EDT, Height Start Date: 09/25/19 Stop Date: 01/23/20 Status: Orderedlisinopril 30 mg oral tablet 1 tablet = 30 mg, By Mouth, Daily, # 30 tablet, 5 Refills, Maintenance, 05/04/19 9:58:00 EDT, Tablet, [facility], 167, cm, 04/30/19 8:51:00 EDT, Height Start Date: 05/04/19 Stop Date: 10/31/19 Status: OrderedmetFORMIN 1000 mg oral tablet 1 tablet = 1,000 mg, By Mouth, 2 times a day, # 60 tablet, 5 Refills, Maintenance, 10/02/19 13:18:00EDT, Tablet, [facility], 167, cm, 08/21/19 16:17:00 EDT, Height Start Date: 10/02/19 Stop Date: 03/30/20 Status: Orderedomeprazole 20 mg oral delayed release tablet 1 tablet = 20 mg, By Mouth, Daily, # 30 tablet, 11 Refills, Maintenance, 09/03/19 21:29:00 EDT, [facility], 167, cm, 08/21/19 16:17:00 EDT, Height Start Date: 09/03/19 Stop Date: 08/28/20 Status: OrderedPen [place], 31 G x 5 mm BD Ultra [...] 09/29/19 14:25:00 EDT, Route to Pharmacy Electronically, [facility], 167, cm, 08/21/19 16:17:00 EDT, Height Start Date: 09/29/19 Stop Date: 03/27/20 Status: OrderedTrulicity Pen 0.75 mg/0.5 mL subcutaneous solution = 0.75 mg, Intramuscular, Every week, # 4 each, 3 Refills, Maintenance, 10/13/19 17:07:00 EDT, [facility], 167, cm, 10/13/19 14:02:00 EDT, [...] 3 Refills, Maintenance, 07/01/19 14:51:00 EDT, Capsule, [facility], 167, cm, 05/12/19 13:30:00 EDT, [...]
--- OUTSIDE RECORDS SUMMARY | 2022-04-30 00:38 | XMS_ITS | Continuity of Care Document ---
:1960 Author Organization [facility] Address [address] [place] [address]- Care Team Providers Name Role Phone Justin MIMS, Ly Rivers Primary Care Physician En[place] [facility] [place] Date(s): 08/03/21 - 08/10/21 [facility] [address] [place], [place] [address] Attending Physician: Samantha Irene MD Referring Physician: Ly Anderson NP Allergies, [...] toxoids (Td) 05/20/07 Recorded 1Result Comment: FLU [facility] [id number] Medications amitriptyline 25 mg oral tablet 2, [...] EDT, Tablet, [facility], [place] instructions, 167, cm, 04/19/20 9:56:00 EST, Height Start Date: 05/26/20 Stop Date: 06/09/20 Status: Ordereddulaglutide 1.5 mg/0.5 mL subcutaneous solution 0.5 mL = 1.5 mg, Subcutaneous Injection, Every week, # 4 each, 11 Refills, Maintenance, 07/20/21 9:20:00 EDT, Solution, [facility], Partial fill [...] 15 mL, 5 Refills, 06/08/21 11:27:00 EDT, [facility], 167, cm, 05/17/21 15:37:00 EDT, Height Start Date: 06/08/21 Status: Orderedlisinopril 30 mg oral tablet See Instructions, TAKE 1 TABLET BY MOUTH EVERYDAY AT NOON, # 30 tablet, 2 Refills, [facility], 167, cm, 05/17/21 15:37:00 EDT, Height Start Date: 06/08/21 Status: OrderedmetFORMIN 1000 mg oral tablet See Instructions, TAKE 1 TABLET BY MOUTH TWICE DAILY IN THE MORNING AND AT BEDTIME, # 180 tablet, 1 Refills, 06/08/21 11:58:00 EDT, [facility], 167, cm, 05/17/21 15:37:00 EDT, Height Start Date: 06/08/21 Status: Orderedomeprazole 20 mg oral delayed release tablet 1 tablet = 20 mg, By Mouth, Daily, PRN for acid reflux, for 30 days, # 30 tablet, 11 Refills, Acute 07/15/22 9:24:00 EDT, 07/20/21 9:24:00 EDT, [facility], 167, cm, 07/20/21 8:40:00EDT, Height Start Date: 07/20/21 Stop Date: 07/15/22 Status: OrderedPen [place], 31 G x 5 mm BD Ultra [...] [facility], 167, cm, 05/17/21 15:37:00 EDT, [...] AT NOON, # 30 capsule, 5 Refills, [facility], 167, cm, 02/24/21 11:47:00 EST, Height Start Date: 03/05/21 Status: Ordered Problem List Condition Effective Dates Status Health Status Informant Hypertension(Confirmed) Active Hypertriglyceridemia(Confirmed) Active Migraines(Confirmed) Active Uncontrolled type 2 diabetes Active mellitus(Confirmed) Vital Signs Most recent to oldest [Reference Range]: 1 Height 167 cm (08/03/21 2:26 PM) Oxygen Saturation [94-100 %] 98 % (08/03/21 2:26 PM) Pulse Rate [55-90 bpm] 87 bpm (08/03/21 2:26 PM) Blood Pressure [90-138/55-84 mm Hg] 109/67 mm Hg (08/03/21 2:26 PM) Temperature [96.8-100.4 DegF] 98.5 DegF (08/03/21 2:26 PM) Mode of Delivery (Oxygen) Room air (08/03/21 2:26 PM) Blood pressure sites Arm, right (08/03/21 2:26 PM) Temperature Route Temporal (08/03/21 2:26 PM) Social History Social History Type Response Smoking Status Never (less than 100 in life time) entered on: 06/12/18 Sex
--- OUTSIDE RECORDS SUMMARY | 2022-04-30 00:38 | XMS_ITS | Continuity of Care Document ---
:1960 Author Organization [facility] Adult Address [address] [place] [address]- Care Team Providers Name Role Phone Justin MIMS, Ly Rivers Primary Care Physician En[place] [facility] [place] Date(s): 12/20/21 - 01/19/22 [facility] Adult [address] [place] [id number]- Allergies, Adverse Reactions, Alerts No Known Allergies [...] toxoids (Td) 05/20/07 Recorded 1Result Comment: FLU [facility] [id number] Medications amitriptyline 25 mg oral tablet 2, tablet, By Mouth, Daily at bedtime, # 60 tablet, Refills 7, Route to Pharmacy Electronically, [facility], 167, cm, 08/03/21 14:26:00 EDT, Height Start Date: 08/15/21 Status: Orderedcetirizine 10 mg oral tablet 1 tablet = 10 mg, By Mouth, Daily, # 14 tablet, 0 Refills, Maintenance, 05/26/20 8:18:00 EDT, Tablet, [facility], [place] instructions, 167, cm, 04/19/20 9:56:00 EST, Height Start Date: 05/26/20 Stop Date: 06/09/20 Status: Ordereddulaglutide 1.5 mg/0.5 mL subcutaneous solution 0.5 mL = 1.5 mg, Subcutaneous Injection, Every week, # 4 each, 11 Refills, Maintenance, 07/20/21 9:20:00 EDT, Solution, [facility], Partial fill upon patient [...] 0 Refills, Maintenance, 08/16/21 16:27:00 EDT, Ointment, [facility],... Start Date: 08/16/21 Status: OrderedhydrOXYzine hydrochloride 25 mg oral tablet 1 tablet = 25 mg, By Mouth, 3 times a day, PRN for itching, # 90 tablet, 0 Refills, Maintenance, 08/23/20 11:33:00 EDT, Tablet, [facility], Partial fill upon patient request if the prescription is for a schedule II opioid drug., 16... Start Date: 08/23/20 Stop Date: 09/22/20 Status: OrderedJardiance 25 mg oral tablet 1 tablet, By Mouth, Daily in AM, # 30 tablet, 2 Refills, Maintenance, 01/15/22 17:01:00 EST, [facility], 167, cm, 10/20/21 11:25:00 EDT, Height Start Date: 01/15/22 Status: OrderedLantus Solostar Pen 100 units/mL subcutaneous solution See Instructions, INJECT 45 UNITS SUBCUTANEOUSLY EVERY EVENING WITH DINNER. ROTATE INJECTION SITES. e11.9, 30 day supply, # 30 mL, 5 Refills, 12/18/21 15:31:00 EST, [facility], 167,cm, 10/20/21 11:25:00 EDT, Height Start Date: 12/18/21 Status: Orderedlisinopril 30 mg oral tablet See Instructions, TAKE 1 TABLET BY MOUTH EVERYDAY AT NOON, # 30 tablet, 2 Refills, Maintenance, 12/19/21 14:24:00 EST, [facility], 167, cm, 10/20/21 11:25:00 EDT, Height Start Date: 12/19/21 Status: OrderedmetFORMIN 1000 mg oral tablet See Instructions, TAKE 1 TABLET BY MOUTH TWICE DAILY IN THE MORNING AND AT BEDTIME, # 180 tablet, 1 Refills, 12/20/21 9:36:00 EST, [facility], 167, cm, 10/20/21 11:25:00 EDT, Height Start Date: 12/20/21 Status: OrderedMetroCream 0.75% topical cream 1 application, Topically, 2 times a day, to facial rash, after washing, # 45 Gm, 0 Refills, Maintenance, 09/11/21 11:03:00 EDT, Cream, [facility], Partial fill upon patient request if the prescription is for a schedule II opioid dr... Start Date: 09/11/21 Status: Orderedomeprazole 20 mg oral delayed release tablet 1 tablet = 20 mg, By Mouth, Daily, PRN for acid reflux, for 30 days, # 30 tablet, 11 Refills, Acute 07/15/22 9:24:00 EDT, 07/20/21 9:24:00 EDT, [facility], 167, cm, 07/20/21 8:40:00EDT, Height Start Date: 07/20/21 Stop Date: 07/15/22 Status: OrderedPen [place], 31 G x 5 mm BD Ultra [...] 0 Refills, Maintenance, 03/17/20 8:42:00 EST, Aerosol, [facility], Partial fill upon patient request if the prescription is for a schedule II opioid drug., 1 pu... Start Date: 03/17/20 Stop Date: 04/16/20 Status: Orderedsertraline 25 mg oral tablet 1 tablet = 25 mg, By Mouth, Daily, # 30 tablet, 6 Refills, Maintenance, 09/28/21 9:11:00 EDT, Tablet, [facility], Partial fill upon patient request if the prescription is for a schedule II opioid drug., 167, cm, 09/11/21 10:23:00 E... Start Date: 09/28/21 Stop Date: 04/26/22 Status: Orderedsimvastatin 40 mg oral tablet 1, tablet, By Mouth, Daily at bedtime, # 30 tablet, Refills 5, Maintenance, 12/19/21 13:36:00 EST, Route to Pharmacy Electronically, [facility], 167, cm, 10/20/21 11:25:00 EDT, Height Start Date: 12/19/21 Status: OrderedTrulicity Pen 1.5 mg/0.5 mL subcutaneous solution 0.5 mL = 1.5 mg, Subcutaneous Injection, Every week, rotate injection sites, # 2.5 mL, 11 Refills, Maintenance, 10/20/21 11:38:00 EDT, Solution, [facility], Partial fill upon patient [...] 30 capsule, 5 Refills, 09/07/21 15:33:00 EDT, [facility], 167, cm, 08/16/21 16:12:00 [...] Team PersonnelName: Justin MIMS, Ly Rivers Position: S PCO Associate Professional Member Role: PCP Address: Address: [address] [facility] [address]rd Floor [facility] [place] [address]- Care Team Related PersonsName: AURELIANO COLLADO Address: home [address] [place] [address] Name: STEVIE COLLADO Address: [address] [place] [address]
--- OUTSIDE RECORDS SUMMARY | 2022-04-30 00:38 | XMS_ITS | Continuity of Care Document ---
:1960 Author Organization [facility] Address [address] [place] [address]- Care Team Providers Name Role Phone Justin MIMS, Ly Rivers Primary Care Physician [phone] [place] [facility] [place] 06/07/21 - 07/07/21 [facility] [address] [place] [address] Allergies, Adverse Reactions, Alerts No Known [...] (Td) 05/20/07 Recorded 1Result Comment: FLU [facility] [id number] Medications amitriptyline 25 mg oral tablet 2, tablet, By Mouth, Daily at bedtime, # 60 tablet, Refills 7, Route to Pharmacy Electronically, [facility], 167, cm, 10/25/20 16:32:00 EDT, Height Start Date: 11/29/20 Status: Orderedcetirizine 10 mg oral tablet 1 tablet = 10 mg, By Mouth, Daily, # 14 tablet, 0 Refills, Maintenance, 05/26/20 8:18:00 EDT, Tablet, [facility], [place] instructions, 167, cm, 04/19/20 9:56:00 EST, Height Start Date: 05/26/20 Stop Date: 06/09/20 Status: Ordereddulaglutide 1.5 mg/0.5 mL subcutaneous solution 0.5 mL = 1.5 mg, Subcutaneous Injection, Every week, # 2.5 mL, 7 Refills, Maintenance, 06/08/21 11:27:00 EDT, Solution, [facility], Partial fill upon patient [...] 0 Refills, Maintenance, 08/23/20 11:33:00 EDT, Tablet, [facility], Partial fill upon patient request if the prescription is for a schedule II opioid drug., 16... Start Date: 08/23/20 Stop Date: 09/22/20 Status: OrderedJardiance 25 mg oral tablet 1 tablet = 25 mg, By Mouth, Daily in AM, # 30 tablet, 11 Refills, Maintenance, 10/25/20 16:03:00 EDT, Tablet, [facility], Partial fill upon patient request if the prescription is for a schedule II opioid drug., 167, cm, 10/25/20 15... Start Date: 10/25/20 Stop Date: 10/20/21 Status: OrderedLantus Solostar Pen 100 units/mL subcutaneous solution See Instructions, INJECT 50 UNITS SUBCUTANEOUSLY EVERY EVENING WITH DINNER. ROTATE INJECTION SITES.,# 15 mL, 5 Refills, 06/08/21 11:27:00 EDT, [facility], 167, cm, 05/17/21 15:37:00 EDT, Height Start Date: 06/08/21 Status: Orderedlisinopril 30 mg oral tablet See Instructions, TAKE 1 TABLET BY MOUTH EVERYDAY AT NOON, # 30 tablet, 2 Refills, [facility], 167, cm, 05/17/21 15:37:00 EDT, Height Start Date: 06/08/21 Status: OrderedmetFORMIN 1000 mg oral tablet See Instructions, TAKE 1 TABLET BY MOUTH TWICE DAILY IN THE MORNING AND AT BEDTIME, # 180 tablet, 1 Refills, 06/08/21 11:58:00 EDT, [facility], 167, cm, 05/17/21 15:37:00 EDT, Height Start Date: 06/08/21 Status: Orderedomeprazole 20 mg oral delayed release tablet 1 tablet = 20 mg, By Mouth, Daily, # 30 tablet, 11 Refills, Maintenance, 08/17/20 13:14:00 EDT, [facility], 167, cm, 06/01/20 12:40:00 EDT, Height Start Date: 08/17/20 Stop Date: 08/12/21 Status: OrderedPen [place], 31 G x 5 mm BD Ultra [...] 0 Refills, Maintenance, 03/17/20 8:42:00 EST, Aerosol, [facility], Partial fill upon patient request if the prescription is for a schedule II opioid drug., 1 pu... Start Date: 03/17/20 Stop Date: 04/16/20 Status: Orderedsimvastatin 40 mg oral tablet 1, tablet, By Mouth, Daily at bedtime, # 90 tablet, Refills 1, Route to Pharmacy Electronically, [facility], 167, cm, 05/17/21 15:37:00 [...] AT NOON, # 30 capsule, 5 Refills, [facility], 167, cm, 02/24/21 11:47:00 EST, Height Start Date: 03/05/21 Status: Ordered Problem List Condition Effective Dates Status Health Status Informant Hypertension(Confirmed) Active Hypertriglyceridemia(Confirmed) Active Migraines(Confirmed) Active Uncontrolled type 2 diabetes Active mellitus(Confirmed) Social History Social History Type Response Smoking Status Never (less than 100 in life time) entered on: 06/12/18 Sex
--- OUTSIDE RECORDS SUMMARY | 2022-04-30 00:38 | XMS_ITS | Continuity of Care Document ---
:1960 Author Organization [facility] Address [address] [place] [address]- Care Team Providers Name Role Phone Justin [employer]ARM [employer]ER, Ly Rivers Primary Care Physician Encounter [facility] [place] Date(s): 03/03/20 - 04/02/20 [facility] [address] [place] [id number]- Allergies, Adverse Reactions, Alerts Substance Reaction Severity [...] FLU [facility] 53825-025-92 Medications amitriptyline 25 mg oral tablet 50 mg, 2, tablet, By Mouth, Daily at bedtime, 2 tab at bedtime. print in hebrew please, # 60 tablet, Refills 7, Tot. Refills 7, Maintenance, 10/15/19 13:03:00 EDT, Route to Pharmacy Electronically, [facility], 167, cm, 10/15/19 1... Start [...] tablet, 4 Refills, Maintenance, 02/24/20 10:42:00 EST,Tablet, [facility], 167, cm, 12/25/19 10:26:00 EST, Height Start Date: 02/24/20 Stop Date: 07/23/20 Status: OrderedLantus Solostar Pen 100 units/mL subcutaneous solution = 45 units, Subcutaneous Injection, Daily at bedtime, rotate injection sites with evening meal, # 15mL, 3 Refills, Maintenance, 02/23/20 14:16:00 EST, Injection, [facility], dose increase, 167, cm, 12/25/19 10:26:00 EST, Height Start Date: 02/23/20 Stop Date: 06/22/20 Status: Orderedlisinopril 30 mg oral tablet 1 tablet = 30 mg, By Mouth, Daily, # 30 tablet, 2 Refills, Maintenance, 02/24/20 10:42:00 EST, Tablet, [facility], 167, cm, 12/25/19 10:26:00 EST, Height Start Date: 02/24/20 Stop Date: 05/24/20 Status: OrderedmetFORMIN 1000 mg oral tablet 1 tablet = 1,000 mg, By Mouth, 2 times a day, # 60 tablet, 2 Refills, Maintenance, 03/23/20 10:18:00EST, Tablet, [facility], 167, cm, 03/17/20 7:33:00 EST, Height Start Date: 03/23/20 Stop Date: 06/21/20 Status: Orderedomeprazole 20 mg oral delayed release tablet 1 tablet = 20 mg, By Mouth, Daily, # 30 tablet, 11 Refills, Maintenance, 09/03/19 21:29:00 EDT, [facility], 167, cm, 08/21/19 16:17:00 EDT, Height Start Date: 09/03/19 Stop Date: 08/28/20 Status: OrderedPen [place], 31 G x 5 mm BD Ultra [...] 03/23/20 10:17:00 EST, Route to Pharmacy Electronically, [facility], 167, cm, 03/17/20 7:33:00 EST, Height Start Date: 03/23/20 Stop Date: 09/19/20 Status: OrderedTrulicity Pen 0.75 mg/0.5 mL subcutaneous solution = 0.75 mg, Intramuscular, Every week, # 4 each, 2 Refills, Maintenance, 02/15/20 12:22:00 EST, [facility], 167, cm, 12/25/19 10:26:00 EST, [...] 30 capsule, 5 Refills, 03/15/20 7:53:00 EST, [facility], 167, cm, 03/03/20 12:52:00 EST, Height Start Date: 03/15/20 Status: Ordered Problem List Condition Effective Dates Status Health Status Informant Diabetes(Confirmed) Active Hypertension(Confirmed) Active Hypertriglyceridemia(Confirmed) Active Migraines(Confirmed) Active Uncontrolled type 2 diabetes Active mellitus(Confirmed) Social History Social History Type Response Smoking Status Never (less than 100 in life time) entered on: 06/12/18 Sex
--- OUTSIDE RECORDS SUMMARY | 2022-04-30 00:38 | XMS_ITS | Continuity of Care Document ---
:1960 Author Organization [facility] Address [address] [place] [address]- Care Team Providers Name Role Phone Ly Anderson NP Primary Care Physician [place] [facility] 08[place]27[place]19 [facility] [address] [place] [address] [facility] Attending Physician: Ly Anderson NP Allergies, [...] toxoids (Td) 05/20/07 Recorded 1Result Comment: FLU [facility] 30946-836-35 Medications amitriptyline 25 mg oral tablet 50 mg, 2, tablet, By Mouth, Daily at bedtime, 2 tab at bedtime. print in luxembourgish please, # 60 tablet, Refills 6, Tot. Refills 6, Maintenance, 04/21/19 10:06:00 EDT, Route to Pharmacy Electronically, [facility], 167, cm, 03/17... [...] tablet, 4 Refills, Maintenance, 04/30/19 16:56:00 EDT,Tablet, [facility], 167, cm, 04/30/19 8:51:00 EDT, Height Start Date: 04/30/19 Stop Date: 09/27/19 Status: OrderedLantus Solostar Pen 100 units/mL subcutaneous solution = 45 units, Subcutaneous Injection, Daily at bedtime, rotate injection sites with evening meal, # 15mL, 3 Refills, Maintenance, 05/12/19 14:23:00 EDT, Injection, [facility], dose increase, 167, cm, 05/12/19 13:30:00 EDT, Height Start Date: 05/12/19 Stop Date: 09/09/19 Status: Orderedlisinopril 30 mg oral tablet 1 tablet = 30 mg, By Mouth, Daily, # 30 tablet, 5 Refills, Maintenance, 05/04/19 9:58:00 EDT, Tablet, [facility], 167, cm, 04/30/19 8:51:00 EDT, Height Start Date: 05/04/19 Stop Date: 10/31/19 Status: OrderedmetFORMIN 1000 mg oral tablet 1 tablet = 1,000 mg, By Mouth, 2 times a day, # 60 tablet, 5 Refills, Maintenance, 03/09/19 14:35:00EST, Tablet, [facility], 167, cm, 11/18/18 [...] 03/09/19 14:28:00 EST, Route to Pharmacy Electronically, [facility] - , 167, cm,11/18/18 14:43:00 EDT, Height Start Date: 03/09/19 Stop Date: 09/05/19 Status: OrderedTrulicity Pen 0.75 mg/0.5 mL subcutaneous solution 0.5 mL = 0.75 mg, Subcutaneous Injection, Every week, for 30 days, # 4 each, 3 Refills, Hard Stop 12/24/19 10:14:00 EST, 08/26/19 10:14:00 EDT, Solution, [facility], 167, cm, 08/21/19 16:17:00 EDT, Height Start Date: 08/26/19 Stop Date: 12/24/19 Status: OrderedTrulicity Pen 1.5 mg/0.5 mL subcutaneous solution 0.5 mL = 1.5 mg, Subcutaneous Injection, Every week, rotate injection sites, # 2 mL, 11 Refills, Maintenance, 05/12/19 14:21:00 EDT, Solution, [facility], 167, cm, 05/12/19 13:30:00EDT, Height [...] 3 Refills, Maintenance, 07/01/19 14:51:00 EDT, Capsule, [facility], 167, cm, 05/12/19 13:30:00 EDT, [...]
--- OUTSIDE RECORDS SUMMARY | 2022-04-30 00:38 | XMS_ITS | Continuity of Care Document ---
:1960 Author Organization [facility] Adult Address [address] [place] [address]- Care Team Providers Name Role Phone Justin MIMS, Ly Rivers Primary Care Physician Encounter [facility] [place] Date(s): 09/29/19 - 10/29/19 [facility] Adult [address] [place] [id number] [facility] Allergies, Adverse Reactions, Alerts Substance [...] Recorded 1Result Comment: FLU [facility] [id number] Medications amitriptyline 25 mg oral tablet 50 mg, 2, tablet, By Mouth, Daily at bedtime, 2 tab at bedtime. print in bahraini please, # 60 tablet, Refills 7, Tot. Refills 7, Maintenance, 10/15/19 13:03:00 EDT, Route to Pharmacy Electronically, [facility], 167, cm, 10/15/19 1... Start Date: [...] tablet, 4 Refills, Maintenance, 09/23/19 11:28:00 EDT,Tablet, [facility], 167, cm, 08/21/19 16:17:00 EDT, Height Start Date: 09/23/19 Stop Date: 02/20/20 Status: OrderedLantus Solostar Pen 100 units/mL subcutaneous solution = 45 units, Subcutaneous Injection, Daily at bedtime, rotate injection sites with evening meal, # 15mL, 3 Refills, Maintenance, 09/25/19 8:59:00 EDT, Injection, [facility], dose increase, 167, cm, 08/21/19 16:17:00 EDT, Height Start Date: 09/25/19 Stop Date: 01/23/20 Status: Orderedlisinopril 30 mg oral tablet 1 tablet = 30 mg, By Mouth, Daily, # 30 tablet, 5 Refills, Maintenance, 05/04/19 9:58:00 EDT, Tablet, [facility], 167, cm, 04/30/19 8:51:00 EDT, Height Start Date: 05/04/19 Stop Date: 10/31/19 Status: OrderedmetFORMIN 1000 mg oral tablet 1 tablet = 1,000 mg, By Mouth, 2 times a day, # 60 tablet, 5 Refills, Maintenance, 10/02/19 13:18:00EDT, Tablet, [facility], 167, cm, 08/21/19 16:17:00 EDT, Height Start Date: 10/02/19 Stop Date: 03/30/20 Status: Orderedomeprazole 20 mg oral delayed release tablet 1 tablet = 20 mg, By Mouth, Daily, # 30 tablet, 11 Refills, Maintenance, 09/03/19 21:29:00 EDT, [facility], 167, cm, 08/21/19 16:17:00 EDT, Height Start Date: 09/03/19 Stop Date: 08/28/20 Status: Orderedsimvastatin 40 mg oral tablet 40 mg, 1, tablet, By Mouth, Daily at bedtime, # 30 tablet, Refills 5, Tot. Refills 5, Maintenance, 09/29/19 14:25:00 EDT, Route to Pharmacy Electronically, [facility], 167, cm, 08/21/19 16:17:00 EDT, Height Start Date: 09/29/19 Stop Date: 03/27/20 Status: OrderedTrulicity Pen 0.75 mg/0.5 mL subcutaneous solution = 0.75 mg, Intramuscular, Every week, # 4 each, 3 Refills, Maintenance, 10/13/19 17:07:00 EDT, [facility], 167, cm, 10/13/19 14:02:00 EDT, Height [...] 3 Refills, Maintenance, 07/01/19 14:51:00 EDT, Capsule, [facility], 167, cm, 05/12/19 13:30:00 EDT, Height [...]
--- OUTSIDE RECORDS SUMMARY | 2022-04-30 00:38 | XMS_ITS | Continuity of Care Document ---
:1960 Author Organization [facility] Address [address] [place] [address]- Care Team Providers Name Role Phone Justin MIMS, Ly Rivers Primary Care Physician [phone] Encounter [facility] [place] Date(s): 08/16/21 - 09/15/21 [facility] [address] [place], [place] [id number] Attending Physician: Trevon Walls Admitting Physician: AdmTrevon britton Referring Physician: Admtr, ArSue Allergies, Adverse Reactions, Alerts No Known Allergies [...] Comment: FLU [facility] [id number] Medications amitriptyline 25 mg oral tablet 2, tablet, By Mouth, Daily at bedtime, # 60 tablet, Refills 7, Route to Pharmacy Electronically, [facility], 167, cm, 08/03/21 14:26:00 EDT, Height Start Date: 08/15/21 Status: Orderedcetirizine 10 mg oral tablet 1 tablet = 10 mg, By Mouth, Daily, # 14 tablet, 0 Refills, Maintenance, 05/26/20 8:18:00 EDT, Tablet, [facility], [place] instructions, 167, cm, 04/19/20 9:56:00 EST, Height Start Date: 05/26/20 Stop Date: 06/09/20 Status: Ordereddulaglutide 1.5 mg/0.5 mL subcutaneous solution 0.5 mL = 1.5 mg, Subcutaneous Injection, Every week, # 4 each, 11 Refills, Maintenance, 07/20/21 9:20:00 EDT, Solution, [facility], Partial fill upon patient [...] 0 Refills, Maintenance, 08/16/21 16:27:00 EDT, Ointment, [facility],... Start Date: 08/16/21 Status: OrderedhydrOXYzine hydrochloride 25 mg oral tablet 1 tablet = 25 mg, By Mouth, 3 times a day, PRN for itching, # 90 tablet, 0 Refills, Maintenance, 08/23/20 11:33:00 EDT, Tablet, [facility], Partial fill upon patient request if the prescription is for a schedule II opioid drug., 16... Start Date: 08/23/20 Stop Date: 09/22/20 Status: OrderedJardiance 25 mg oral tablet 1 tablet = 25 mg, By Mouth, Daily in AM, # 30 tablet, 11 Refills, Maintenance, 10/25/20 16:03:00 EDT, Tablet, [facility], Partial fill upon patient request if the prescription is for a schedule II opioid drug., 167, cm, 10/25/20 15... Start Date: 10/25/20 Stop Date: 10/20/21 Status: OrderedLantus Solostar Pen 100 units/mL subcutaneous solution See Instructions, INJECT 50 UNITS SUBCUTANEOUSLY EVERY EVENING WITH DINNER. ROTATE INJECTION SITES.,# 15 mL, 5 Refills, 06/08/21 11:27:00 EDT, [facility], 167, cm, 05/17/21 15:37:00 EDT, Height Start Date: 06/08/21 Status: Orderedlisinopril 30 mg oral tablet See Instructions, TAKE 1 TABLET BY MOUTH EVERYDAY AT NOON, # 30 tablet, 2 Refills, [facility], 167, cm, 08/16/21 16:12:00 EDT, Height Start Date: 09/07/21 Status: OrderedmetFORMIN 1000 mg oral tablet See Instructions, TAKE 1 TABLET BY MOUTH TWICE DAILY IN THE MORNING AND AT BEDTIME, # 180 tablet, 1 Refills, 06/08/21 11:58:00 EDT, [facility], 167, cm, 05/17/21 15:37:00 EDT, Height Start Date: 06/08/21 Status: OrderedMetroCream 0.75% topical cream 1 application, Topically, 2 times a day, to facial rash, after washing, # 45 Gm, 0 Refills, Maintenance, 09/11/21 11:03:00 EDT, Cream, [facility], Partial fill upon patient request if the prescription is for a schedule II opioid dr... Start Date: 09/11/21 Status: Orderedomeprazole 20 mg oral delayed release tablet 1 tablet = 20 mg, By Mouth, Daily, PRN for acid reflux, for 30 days, # 30 tablet, 11 Refills, Acute 07/15/22 9:24:00 EDT, 07/20/21 9:24:00 EDT, [facility], 167, cm, 07/20/21 8:40:00EDT, Height Start Date: 07/20/21 Stop Date: 07/15/22 Status: OrderedPen [place], 31 G x 5 mm BD Ultra [...] 0 Refills, Maintenance, 03/17/20 8:42:00 EST, Aerosol, [facility], Partial fill upon patient request if the prescription is for a schedule II opioid drug., 1 pu... Start Date: 03/17/20 Stop Date: 04/16/20 Status: Orderedsimvastatin 40 mg oral tablet 1, tablet, By Mouth, Daily at bedtime, # 90 tablet, Refills 1, Route to Pharmacy Electronically, [facility], 167, cm, 05/17/21 15:37:00 [...] 30 capsule, 5 Refills, 09/07/21 15:33:00 EDT, [facility], 167, cm, 08/16/21 16:12:00 [...]
--- OUTSIDE RECORDS SUMMARY | 2022-04-30 00:38 | XMS_ITS | Continuity of Care Document ---
:1960 Author Organization [facility] Adult Address [address] [place] [address]- Care Team Providers Name Role Phone Justin MIMS, Ly Rivers Primary Care Physician [phone] [id number] Date(s): 03/17/19 - 03/24/19 [facility] [address] [place] [address] [facility] Encounter Diagnosis Diabetes (Discharge Diagnosis) - 03/17/19 Hypertension (Discharge Diagnosis) - 03/17/19 Migraines (Discharge Diagnosis) - 03/17/19 Left foot pain (Discharge Diagnosis) - 03/17/19 Right arm pain (Discharge Diagnosis) - 03/17/19 Attending Physician: Ly Anderson NP Allergies, Adverse [...] toxoids (Td) 05/20/07 Recorded 1Result Comment: FLU [facility] [id number] Medications amitriptyline 25 mg oral tablet 50 mg, 2, tablet, By Mouth, Daily at bedtime, week 1 take 1 tab, then increase to 2 tab at bedtime. print in maltese please, # 60 tablet, Refills 5, Tot. Refills 5, Maintenance, 10/17/18 10:29:25 EDT, Route to Pharmacy Electronically, [id number]... Start Date: 10/17/18 Stop Date: 04/15/19 Status: [...] tablet, 5 Refills, Maintenance, 03/09/19 14:35:00EST, Tablet, [facility] - , 167, cm, 11/18/18 [...] 03/09/19 14:28:00 EST, Route to Pharmacy Electronically, [facility] - , 167, cm,11/18/18 14:43:00 [...] 3 Refills, Maintenance, 03/09/19 11:00:00 EST, Capsule, [facility] - [place], 167, cm, 11/18/18 14:43:00 EDT, Height Start Date: 03/09/19 Stop Date: 07/07/19 Status: Ordered Problem List Condition Effective Dates Status Health Status Informant Diabetes(Confirmed) Active Hypertension(Confirmed) Active Migraines(Confirmed) Active Diagnosis Diagnosis Type Effective Dates Health Status Clinical In formant Service Diabetes Discharge 03/17/19 Diagnosis Hypertension Discharge 03/17/19 Diagnosis Migraines Discharge 03/17/19 Diagnosis Left foot pain Discharge 03/17/19 Diagnosis Right arm pain Discharge 03/17/19 Diagnosis Vital Signs Most recent to oldest [Reference Range]: 1 2 Height 167 cm 167 cm (03/17/19 4:02 PM) (03/17/19 3:41 PM) Weight 85.5 kg (03/17/19 3:41 PM) Oxygen Saturation [94-100 %] 97 % (03/17/19 3:41 PM) Pulse Rate [55-90 bpm] 93 bpm *H* (03/17/19 3:41 PM) Body Mass Index [18.5-24.99] 30.66 *>HHI* (03/17/19 3:41 PM) Blood Pressure [90-138/55-84 mm Hg] 128/68 mm Hg 104/ 72 mm Hg (03/17/19 4:02 PM) (03/17/19 3:41 PM) Mode of Delivery (Oxygen) Room air (03/17/19 3:41 PM) Blood pressure sites Arm, left Arm, left (03/17/19 4:02 PM) (03/17/19 3:41 PM) Weight Obtained Via Standing scale (03/17/19 3:41 PM) Social History Social History Type Response Smoking Status Never (less than 100 in life time) entered on: 06/12/18 Sex
--- OUTSIDE RECORDS SUMMARY | 2022-04-30 00:38 | XMS_ITS ---
:1960 Author Care Team Providers Name Role Phone CHIKIS CUNHA CNP Primary Care Provider [phone] Allergies Code Code System Name Reaction Severity Status Onset NKDA ? Medications Name Status Start Date Stop Date ? ? amitriptyline 10 mg tablet Active ? Not a vailable amitriptyline 25 mg tablet Active ? Not a vailable amitriptyline hydrochloride 10 mg tabs Completed ? 04/02/2019 BD Ultra-Fine Carmencita Pen Needle 32 gauge x Completed ? 04/02/2019 cyclobenzaprine 10 mg tablet Active ? Not available doxycycline hyclate 100 mg capsule Completed ? 04/02/2019 ibuprofen 600 mg tablet Active ? Not avai lable Lantus Solostar U-100 Insulin 100 unit/mL (3 mL) Completed ? 04/02/2019 subcutaneous pen lisinopril 30 mg tablet Active ? Not avai lable lisinopril 30 mg tabs Completed ? 04/02/2019 metformin 1,000 mg tablet Active ? Not av ailable naproxen 500 mg tablet Active ? Not avail able omeprazole 20 mg capsule,delayed release Active ? Not available simvastatin 40 mg tablet Active ? Not madi ilable Trulicity 0.75 mg/0.5 mL subcutaneous pen injector Active ? Not available Problems None recorded. Procedures Date Name Performed by ? ? Ankle Surgery Information not avai lable 04/02/2019 XR, Foot, 3 or More View [facility] [address], [place] [address] (Work Place) Results Lab Results None recorded. Past Encounters None recorded. Social History Tobacco Smoking Status Never Smoker Vaccine List None recorded. Plan of Care Reminders Provider Appointments None recorded. ? ? Lab None recorded. ? ? Referral None recorded. ? ? Procedures None recorded. ? ? Surgeries None recorded. ? ? Imaging None recorded. ? ? Vitals Height Weight BMI 5 ft 7 in 188 lbs 29.4 kg/m2
--- NOTE | 2022-04-30 00:40 | ED_ITS ---
HPI - Nausea/Vomiting/Diarrhea General Chief complaint: Nausea/Vomiting/Diarrhea Stated complaint: Vomiting Time Seen by Provider: 04/30/22 00:00 History of Present Illness HPI Narrative: Patient is a 61-year-old female been having epigastric abdominal pain ongoing for the last week or so. Tonight patient had candy fried chicken subsequently the pain got worse. Had nausea. Generalized malaise. Pain is localized in the epigastric area. Patient is status post appendectomy. Denies any chest pain. No shortness breath. No diaphoresis. She is from home. No history diabetes, hypertension, high cholesterol, smoking, [place]. Patient denies any change in bowel movement. Related Data Previous Rx's Medication Instructions Recorded ciprofloxacin HCl 500 mg tablet 500 mg PO Q12H 7 days #14 tabs 08/31/21 Allergies Allergy/AdvReac Type Severity Reaction Status Date / Time No Known Allergies Allergy Verified 04/29/22 23:33 Review of Systems Review of Systems: Positive abdominal pain after fried chicken Yes all other systems are reviewed and are negative PMFSH Past Medical History Attestation statement: The following information was validated with the patient. Medical History Carpal tunnel syndrome, bilateral Diabetes HTN (hypertension) Surgical History Hx of appendectomy Social History Social History Patient Tobacco Use Status: Never used Tobacco Advance Directives: No Advance Directives Information Provided: No Physical Exam Vital Signs: Vital Signs: Last Vital Signs Temp 97.7 F 04/29/22 23:30 Pulse 104 H 04/29/22 23:30 Resp 20 04/29/22 23:30 BP 127/83 04/29/22 23:30 Pulse Ox 99 04/29/22 23:30 O2 Del Method 04/29/22 23:30 BMI result Body Mass Index 26.6 Appearance: Alert. Oriented X3. No acute distress. Eyes: Pupils equal, round and reactive to light. ENT: Pharynx normal. Neck: Normal inspection. Neck supple. No lymph nodes noted. No crepitus CVS: Normal heart rate and rhythm. Pulses normal. Normal S1 and S2 Respiratory: No respiratory distress. Breath sounds normal. No Wheezing. No rales Abdomen: Soft and nontender. No rigidity. No distention. good BS x4 Skin: Skin warm and dry. Normal skin color. Normal skin turgor. Extremities: No lower extremity edema. Neurovascular intact to all extremities. No Lacerations. No Rash Neuro: Oriented X 3. No motor deficit. No sensory deficit. Moving all extermities. No slurred speech Medications Administered Discontinued Medications Generic Name Dose Route Start Last Admin Trade Name Phiq PRN Reason Stop Dose Admin Al Hydroxide/Mg Hydroxide 30 ml 04/30/22 00:36 04/30/22 01:05 Magnesium Hydrox/Alum Hydrox 30 Ml Oral.Susp PO 04/30/22 00:37 30 ml ONCE ONE Administration Sodium Chloride 1,000 mls @ 999 mls/hr 04/30/22 00:45 04/30/22 01:02 Ns IV 04/30/22 01:45 999 mls/hr .Q1H1M NAZ Administration Ondansetron HCl 4 mg 04/30/22 00:37 04/30/22 01:02 Ondansetron Hcl 4 Mg/2 Ml Vial IVPUSH 04/30/22 00:38 4 mg ONCE ONE Administration Medical Decision Making Medical Decision Making [facility] Narrative: Question symptoms secondary to gastritis versus cholecystitis versus pancreatitis versus biliary colic. Unlikely cardiac in origin. CT scan of the abdomen pelvis ordered. Patient's LFTs are normal. Lipase is normal no evidence for pancreatitis. Given Maalox for pain. Differential Diagnosis Gastritis versus pancreatitis versus cholecystitis versus biliary colic Lab Data [facility] Lab Attestation statement: I reviewed the patient's lab results. 04/30/22 00:06 04/30/22 00:06 Labs: Lab Results 04/30/22 04/30/22 Range/Units 00:06 00:06 WBC 8.8 (4.8-10.8) X10*3/uL RBC 5.91 H (4.20-5.50) X10*6/uL Hgb 14.8 (12.0-16.0) g/dl Hct 45.3 (37.0-47.0) % MCV 76.6 L (80.0-98.0) fL MCH 25.0 L (27.0-33.0) pg MCHC 32.7 (31.0-35.0) g/dl RDW 14.1 (11.0-16.0) % Plt Count 209 (160-400) X10*3/uL MPV 9.1 L (9.4-12.3) fL Immature Gran % (Auto) 0.2 (0.0-0.4) % Neut % (Auto) 75.2 H (45-73) % Lymph % (Auto) 17.6 L (20-40) % Metcalfe % (Auto) 5.3 (2-11) % Eos % (Auto) 1.5 (0-4) % Baso % (Auto) 0.2 (0-2) % Lymph # (Auto) 1.5 (1.2-4.9) X10*3/uL Metcalfe # (Auto) 0.5 (0.1-1.2) X10*3/uL Eos # (Auto) 0.1 (0.0-0.4) X10*3/uL Baso # (Auto) 0.0 (0.0-0.2) X10*3/uL Abs Immat Gran (auto) 0.02 (0.00-0.03) X10*3/uL Absolute Neuts (auto) 6.6 (2.0-8.3) x10*3/uL Absolute Nucleated RBC 0.000 (0.0-0.012) X10*3/uL Nucleated RBC % (auto) 0.0 (0.0-0.2) /100WBC Sodium 140 (135-145) mmol/L Potassium 4.0 (3.3-5.1) mmol/L Chloride 104 (96-108) mmol/L Carbon Dioxide 25 (22-29) mmol/L Anion Gap 15 (12-20) BUN 18 H (9-16) mg/dL Creatinine 0.69 (0.5-1.4) mg/dL Estim Creat Clear Calc 93.9 Estimated GFR > 60 Random Glucose 164 H (60-115) mg/dL Calcium 9.2 (8.4-10.2) mg/dL Total Bilirubin 0.6 (0.0-1.0) mg/dL Direct Bilirubin < 0.2 (0.0-0.5) mg/dL AST 15 (5-31) U/L ALT 17 (0-31) U/L Alkaline Phosphatase 99 (39-117) U/L Total Protein 6.3 L (6.5-8.0) g/dL Albumin 4.0 (3.5-5.0) g/dL Lipase 20 (8-78) U/L Discharge Plan Discharge Clinical Impression: Abdominal pain Patient Disposition: Still a Patient Prescriptions: No Action ciprofloxacin HCl 500 mg tablet 500 mg PO Q12H 7 Days Qty: 14 0RF
--- NOTE | 2022-04-30 00:46 | ECG_ITS ---
Test Reason : cp Blood Pressure : / mmHG Vent. Rate : 095 BPM Atrial Rate : 095 BPM P-R Int : 192 ms QRS Dur : 092 ms QT Int : 348 ms P-R-T Axes : 030 -36 050 degrees QTc Int : 437 ms Normal sinus rhythm Left axis deviation Abnormal ECG When compared with ECG of 10-MAY-2017 12:18, No significant change was found Referred By: Rhonda Osorio Electronically Signed By:JUVENTINO RAMÍREZ MD
[2022-04-30] MEDS: ondansetron HCL 4 MG/2 ML VIAL IVPUSH (01:02)
[2022-04-30] MEDS: 0.9 % Sodium Chloride 1,000 ML 999 ML IV (01:02)
[2022-04-30] MEDS: Magnesium Hydrox/Alum Hydrox 30 ML ORAL.SUSP PO (01:05)
[2022-04-30] MEDS: iohexoL 350 MG/ML 100 ML INFUS..BTL 85 ML IV (02:13)
[2022-04-30 03:19] LABS: Appearance Urine Clear; Color Urine Yellow; Glucose Urine UA >=1000 mg/dL (Negative); Leukocyte Esterase Urine Negative (Negative); Nitrite Urine Negative (Negative); Specific Gravity - Urine >= 1.030 (1.005-1.025); UMIC TRIGGER UACC YES; Urine Blood Negative (Negative); Urine Ketones Trace mg/dL (Negative); Urine Protein Negative (Neg-Trace)
[2022-04-30 03:24] LABS: Bacteria Urine 2+ (None Seen); Hyaline Casts Urine 0-2 /LPF (0-2); RBC Urine 0-2 /HPF (0-2); UACC Culture Trigger YES
== END 2022-04-30 03:43 | disposition home or self-care (01) ==
PROVIDERS: Emergency Provider Emergency Medicine Emergency Medical Services; PCP Nurse Practitioner Family
DX: R10.13 Epigastric pain (principal); R10.9 Unspecified abdominal pain
CPT/HCPCS: 36415; 74177; 80048; 80076; 81001; 83690; 85025; 87086; 93005; 96361; 96374; 99284; J2405; Q9967

== ENCOUNTER 2024-02-18 04:51 | Emergency (ER) | payer OTHER, SELFPAY ==
[2024-02-18 04:55] VITALS: BP 141/68; PULSE 91; RESP 20; TEMP 36.6; O2SAT 99; BMI 25.8
--- NOTE | 2024-02-18 05:04 | ECG_ITS ---
Test Reason : ABD PAIN Blood Pressure : */* mmHG Vent. Rate : 95 BPM Atrial Rate : 95 BPM P-R Int : 198 ms QRS Dur : 96 ms QT Int : 364 ms P-R-T Axes : 17 -29 46 degrees QTcB Int : 457 ms Normal sinus rhythm Normal ECG When compared with ECG of 30-APR-2022 02:11, No significant change was found Referred By: Generic ED Physician Electronically Signed By: ELEAZAR LEAL
[2024-02-18 05:36] LABS: Basophils Percent Auto 0.7 % (0-2); Eosinophils Absolute Auto 0.2 X10*3/uL (0.0-0.4); Eosinophils Percent Auto 3.8 % (0-4); Hematocrit 39.6 % (37.0-47.0); Hemoglobin 13.6 g/dl (12.0-16.0); Imm Gran Abs Auto 0.01 X10*3/uL (0.00-0.03); Imm Gran Pct Auto 0.2 % (0.0-0.4); Lymphocytes Percent Auto 35.5 % (20-40); MANUAL DIFF FLAG NO; Mean Corpuscular HGB Conc 34.3 g/dl (31.0-35.0); Mean Corpuscular Hemoglobin 26.3 pg (27.0-33.0); Mean Corpuscular Volume 76.6 fL (80.0-98.0); Mean Platelet Volume 9.4 fL (9.4-12.3); Monocytes Absolute Auto 0.3 X10*3/uL (0.1-1.2); Monocytes Percent Auto 5.8 % (2-11); Platelet Count 170 X10*3/uL (160-400); Red Blood Count 5.17 X10*6/uL (4.20-5.50); Red Cell Distribution Width 14.2 % (11.0-16.0); White Blood Count 5.5 X10*3/uL (4.8-10.8)
[2024-02-18 05:44] LABS: Glucose, Whole Blood 182 mg/dL (60-115)
[2024-02-18 05:53] LABS: Alanine Aminotransferase 28 U/L (0-31); Albumin Level 4.1 g/dL (3.5-5.0); Alkaline Phosphatase 93 U/L (39-117); Anion Gap 15 (12-20); Aspartate Amino Transferase 29 U/L (5-31); Bilirubin Direct 0.1 mg/dL (0.0-0.5); Bilirubin Total 0.4 mg/dL (0.0-1.0); Blood Urea Nitrogen 19 mg/dL (9-16); Calcium 9.5 mg/dL (8.4-10.2); Carbon Dioxide 22 mmol/L (22-29); Chloride 107 mmol/L (96-108); Creatinine Clr Calc Pharmacy 93.1; Estimated Glomerular Filt Rate > 60; Glucose Random 172 mg/dL (60-115); Lipase 19 U/L (8-78); Potassium 3.7 mmol/L (3.3-5.1); Sodium 140 mmol/L (135-145); Total Protein 6.7 g/dL (6.5-8.0)
--- NOTE | 2024-02-18 06:30 | ED_ITS ---
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 Patient states that she was at work when she had an episode of epigastric pain, nausea, vomiting, and then lightheadedness like she was going to pass out. Patient denies any fever, chills, blurry vision, double vision, loss of vision, chest pain, difficulty breathing, shortness of breath, back pain, night sweats, pain with urination, increased urinary frequency, increased urinary urgency, blood in her urine or stool, syncope, recent trauma or falls, bowel incontinence, bladder incontinence, or any other complaints at this time. Relieving factors: none Exacerbating factors: none Associated symptoms: nausea/vomiting Treatments prior to arrival: none Related Data Previous Rx's ?Medication ?Instructions ?Recorded ciprofloxacin HCl 500 mg tablet 500 mg PO Q12H 7 days #14 tabs 08/31/21 ondansetron 4 mg disintegrating 4 mg PO Q6-8H PRN nausea and 04/30/22 tablet vomiting #8 tabs Allergies Allergy/AdvReac Type Severity Reaction Status Date / Time No Known Allergies Allergy Verified 02/18/24 04:59 Review of Systems 2 Constitutional: Constitutional: Reports no additional constitutional complaints, Denies chills, Denies fever(s) and Denies night sweats Eyes: Eyes: Reports no additional eye complaints, Denies blurry vision, Denies change in vision, Denies diplopia, Denies eye discharge, Denies loss of vision and Denies eye pain ENT: Denies dizziness Cardiovascular: Cardiovascular: Reports no additional cardiovascular complaints, Denies chest pain, Denies lightheadedness, Denies Loss of Consciousness and Denies dyspnea Respiratory: Respiratory: Reports no additional respiratory complaints and Denies dyspnea Gastrointestinal: Gastrointestinal: Reports no additional gastrointestinal complaints, Reports abdominal pain, Denies melena, Denies hematochezia, Denies change in bowel habits, Denies change in stool character, Reports nausea and Reports vomiting Genitourinary: Genitourinary: Denies hematuria, Denies urinary frequency, Denies dysuria, Denies urinary incontinence, Denies urinary hesitancy and Denies urinary urgency Musculoskeletal: Musculoskeletal: Reports no additional musculoskeletal complaints, Denies numbness and Denies tingling Neurologic: Denies dizziness, Denies loss of vision, Denies numbness and Denies tingling Psychiatric: Psychiatric: Reports no additional psychiatric complaints Endocrine: Endocrine: Reports no additional endocrine complaints Hematologic/Lymphatic: Hematologic/Lymphatic: Reports no additional hematologic/lymphatic complaints Allergic/Immunologic: Allergic/Immunologic: Reports no additional allergic/immunologic complaints PMFSH Past Medical History Attestation statement: The following information was validated with the patient. Source: old records reviewed and nursing notes reviewed Medical History Carpal tunnel syndrome, bilateral HTN (hypertension) Diabetes Surgical History Hx of appendectomy Social History Social History Patient Tobacco Use Status: Never used Tobacco Advance Directives: No Advance Directives Information Provided: Yes Do you have a plan to hurt others: No Plan Physical Exam ED Vital Signs: Vital Signs - 24 hr 02/18/24 04:55 02/18/24 06:37 02/18/24 09:47 Temperature 97.9 F 98.0 F 97.7 F Pulse Rate 91 94 82 Respiratory Rate 20 16 12 Blood Pressure 141/68 H 126/84 111/69 Pulse Oximetry 99 94 94 Oxygen Delivery Method Room Air Room Air Room Air 02/18/24 09:51 Temperature 97.7 F Pulse Rate 82 Respiratory Rate 12 Blood Pressure 111/69 Pulse Oximetry 94 Oxygen Delivery Method Room Air BMI result Body Mass Index 25.8 Const General: cooperative, no acute distress, alert and awake Nutritional Appearance: well nourished Orientation/consciousness: patient oriented x3 Limitations: no limitations HENMT Head: Yes normal to inspection and Yes atraumatic Ears: hearing grossly normal bilaterally and external ears normal General nose exam: Normal external nose present, no nasal discharge noted and no epistaxis Face and sinus: Yes normal facial exam, No abrasion and No laceration Mouth: Normal oral and palatal mucosa present, no drooling and no muffled voice Eyes General: appearance normal, both eyes and all related structures Periorbital: periorbital findings normal Eyelids: Yes eyelids normal Conjunctivae: conjunctivae normal Pupils: Equal, round and reactive pupils present EOM: EOMs intact bilaterally Neck Neck: Yes normal visual inspection, Yes full ROM and Yes no lymphadenopathy Chest Chest palpation & inspection: normal inspection of the chest Resp Effort & Inspection: normal respiratory effort and able to speak in complete sentences GI Inspection: Yes normal to inspection Palpation (GI): Soft to palpation, not firm, nontender, no guarding and not rigid Neuro General: patient oriented x3 and moves all extremities Cranial nerves: Yes Equal, round and reactive pupils present Cognition (Neuro): normal cognition Extrem General: Yes normal to inspection, Yes full ROM and Yes capillary refill normal Psych Appearance: grossly normal Mental Status: mental status grossly normal Affect: normal affect Attitude: cooperative Thought process: Normal thought process present Thought content: Normal thought content present Insight: Good insight present (Psych) Medications Administered Discontinued Medications Generic Name Dose Route Start Last Admin Trade Name Freq PRN Reason Stop Dose Admin Al Hydroxide/Mg Hydroxide 15 ml 02/18/24 07:11 02/18/24 09:53 Magnesium Hydrox/Alum Hydrox 30 Ml Oral.Susp PO 02/18/24 07:12 Not Given ONCE ONE Sodium Chloride 1,000 mls @ 999 mls/hr 02/18/24 07:15 02/18/24 08:45 Ns IV 02/18/24 08:15 Infused .Q1H1M NAZ Infusion Morphine Sulfate 4 mg 02/18/24 07:11 02/18/24 07:41 Morphine Sulfate 4 Mg/Ml Cartridge IVPUSH 02/18/24 07:12 4 mg ONCE ONE Administration Protocol Ondansetron HCl 4 mg 02/18/24 07:11 02/18/24 07:41 Ondansetron Hcl 4 Mg/2 Ml Vial IVPUSH 02/18/24 07:12 4 mg ONCE ONE Administration Pantoprazole Sodium 40 mg 02/18/24 07:11 02/18/24 07:41 Pantoprazole Sodium 40 Mg/10 Ml Vial IVPUSH 02/18/24 07:12 40 mg ONCE ONE Administration Medical Decision Making Medical Decision Making MDM Narrative: Patient is a 63 year old assigned female at with a history of HTN and DM presenting to the emergency department today with nausea and epigastric pain after a near syncopal episode. Patient's physical exam was unremarkable. Patient's blood work was unremarkable. Patient's urine showed no acute process. Patient's EKG was unremarkable. I explained my physical exam findings as well as all test results to the patient. I answered all questions asked by the patient. I stressed the importance of the patient taking her medication as directed (either prescribed or as the over the counter packaging recommends). I stressed the importance of the patient following up with her primary care provider. I stressed the importance of the patient returning to the emergency department immediately if her symptoms were to worsen or if she were to develop any dizziness, shortness of breath, difficulty breathing, chest pain, blurry vision, loss of vision, nausea, vomiting, abdominal pain, fever, chills, back pain, or any other complaints. Patient verbalized agreement and understanding with this treatment plan and discharge. Differential Diagnosis Differential Diagnoses: The differential diagnosis associated with the presentation includes Epigastric pain Nausea Vomiting Near syncopal episode Vasovagal syncope Admission/Observation Consideration of admission/observation: Escalation of care including admission/observation considered Patient would have been admitted to the hospital had her work up had any findings where hospital admission was appropriate and her clinical presentation warranted hospital admission. Lab Data [facility] Lab Attestation statement: I reviewed the patient's lab results. My interpretation of these results are in the [facility] Rationale portion of this note. 02/18/24 05:26 02/18/24 05:26 Labs: Lab Results 02/18/24 02/18/24 02/18/24 Range/Units 05:26 05:40 07:23 WBC 5.5 (4.8-10.8) X10*3/uL RBC 5.17 (4.20-5.50) X10*6/uL Hgb 13.6 (12.0-16.0) g/dl Hct 39.6 (37.0-47.0) % MCV 76.6 L (80.0-98.0) fL MCH 26.3 L (27.0-33.0) pg MCHC 34.3 (31.0-35.0) g/dl RDW 14.2 (11.0-16.0) % Plt Count 170 (160-400) X10*3/uL MPV 9.4 (9.4-12.3) fL Immature Gran % (Auto) 0.2 (0.0-0.4) % Neut % (Auto) 54.0 (45-73) % Lymph % (Auto) 35.5 (20-40) % [place] % (Auto) 5.8 (2-11) % Eos % (Auto) 3.8 (0-4) % Baso % (Auto) 0.7 (0-2) % Lymph # (Auto) 2.0 (1.2-4.9) X10*3/uL [place] # (Auto) 0.3 (0.1-1.2) X10*3/uL Eos # (Auto) 0.2 (0.0-0.4) X10*3/uL Baso # (Auto) 0.0 (0.0-0.2) X10*3/uL Abs Immat Gran (auto) 0.01 (0.00-0.03) X10*3/uL Absolute Neuts (auto) 3.0 (2.0-8.3) x10*3/uL Absolute Nucleated RBC 0.000 (0.0-0.012) X10*3/uL Nucleated RBC % (auto) 0.0 (0.0-0.2) /100WBC Sodium 140 (135-145) mmol/L Potassium 3.7 (3.3-5.1) mmol/L Chloride 107 (96-108) mmol/L Carbon Dioxide 22 (22-29) mmol/L Anion Gap 15 (12-20) BUN 19 H (9-16) mg/dL Creatinine 0.67 (0.5-1.4) mg/dL Estim Creat Clear Calc 93.1 Estimated GFR > 60 POC Glucose 182 H (60-115) mg/dL Random Glucose 172 H (60-115) mg/dL Calcium 9.5 (8.4-10.2) mg/dL Total Bilirubin 0.4 (0.0-1.0) mg/dL Direct Bilirubin 0.1 (0.0-0.5) mg/dL AST 29 (5-31) U/L ALT 28 (0-31) U/L Alkaline Phosphatase 93 (39-117) U/L Total Protein 6.7 (6.5-8.0) g/dL Albumin 4.1 (3.5-5.0) g/dL Lipase 19 (8-78) U/L Urine Color Urine Appearance Urine pH (5.0-9.0) Ur Specific [place] (1.005-1.025) Urine Protein (Neg-Trace) mg/dL Urine Glucose (UA) (Negative) mg/dL Urine Ketones (Negative) mg/dL Urine Blood (Negative) Urine Nitrite (Negative) Ur Leukocyte Esterase (Negative) Urine RBC (0-2) /HPF Urine WBC (0-5) /HPF Ur Squamous Epith Cells (0-2) /HPF Urine Bacteria (None Seen) Hyaline Casts (0-2) /LPF Influenza Type A (PCR) NEGATIVE (Negative) Influenza Type B (PCR) NEGATIVE (Negative) RSV RNA Qual (PCR) NEGATIVE (Negative) SARS-CoV-2 RNA (RT-PCR) NEGATIVE (Negative) 02/18/24 Range/Units 08:56 WBC (4.8-10.8) X10*3/uL RBC (4.20-5.50) X10*6/uL Hgb (12.0-16.0) g/dl Hct (37.0-47.0) % MCV (80.0-98.0) fL MCH (27.0-33.0) pg MCHC (31.0-35.0) g/dl RDW (11.0-16.0) % Plt Count (160-400) X10*3/uL MPV (9.4-12.3) fL Immature Gran % (Auto) (0.0-0.4) % Neut % (Auto) (45-73) % Lymph % (Auto) (20-40) % [place] % (Auto) (2-11) % Eos % (Auto) (0-4) % Baso % (Auto) (0-2) % Lymph # (Auto) (1.2-4.9) X10*3/uL [place] # (Auto) (0.1-1.2) X10*3/uL Eos # (Auto) (0.0-0.4) X10*3/uL Baso # (Auto) (0.0-0.2) X10*3/uL Abs Immat Gran (auto) (0.00-0.03) X10*3/uL Absolute Neuts (auto) (2.0-8.3) x10*3/uL Absolute Nucleated RBC (0.0-0.012) X10*3/uL Nucleated RBC % (auto) (0.0-0.2) /100WBC Sodium (135-145) mmol/L Potassium (3.3-5.1) mmol/L Chloride (96-108) mmol/L Carbon Dioxide (22-29) mmol/L Anion Gap (12-20) BUN (9-16) mg/dL Creatinine (0.5-1.4) mg/dL Estim Creat Clear Calc Estimated GFR POC Glucose (60-115) mg/dL Random Glucose (60-115) mg/dL Calcium (8.4-10.2) mg/dL Total Bilirubin (0.0-1.0) mg/dL Direct Bilirubin (0.0-0.5) mg/dL AST (5-31) U/L ALT (0-31) U/L Alkaline Phosphatase (39-117) U/L Total Protein (6.5-8.0) g/dL Albumin (3.5-5.0) g/dL Lipase (8-78) U/L Urine Color Yellow Urine Appearance Clear Urine pH 7.0 (5.0-9.0) Ur Specific [place] >= 1.030 H (1.005-1.025) Urine Protein Negative (Neg-Trace) mg/dL Urine Glucose (UA) >=1000 H (Negative) mg/dL Urine Ketones Negative (Negative) mg/dL Urine Blood Negative (Negative) Urine Nitrite Negative (Negative) Ur Leukocyte Esterase Negative (Negative) Urine RBC 0-2 (0-2) /HPF Urine WBC 0-5 (0-5) /HPF Ur Squamous Epith Cells 0-2 (0-2) /HPF Urine Bacteria None Seen (None Seen) Hyaline Casts 0-2 (0-2) /LPF Influenza Type A (PCR) (Negative) Influenza Type B (PCR) (Negative) RSV RNA Qual (PCR) (Negative) SARS-CoV-2 RNA (RT-PCR) (Negative) Independent Interpretation I performed an independent interpretation of an: EKG Interpretation: I independently interpreted this EKG and am in agreement with the below findings: Vent. Rate: 095 BPM Atrial Rate: 095 BPM P-R Int: 198 ms QRS Dur: 096 ms QT Int: 364 ms P-R-T Axes: 017 -29 046 degrees QTc Int: 457 ms Normal sinus rhythm Normal ECG When compared with ECG of 30-APR-2022 02:11, No significant change was found Tests considered The following testing was considered but not selected: I considered obtaining a CT scan of the abdomen/pelvis and the head however, the patient's current clinical presentation and work up did not warrant this. I discusse this with the patient who verbalized understanding and agreement. Chronic Conditions Patient?s care impacted by: Diabetes Discharge Plan Discharge Clinical Impression: Acute epigastric pain Patient Disposition: Home, Self-Care Instructions: Epigastric Pain (ED) Additional Instructions: Follow up with your primary care provider. Return to the emergency department immediately if your symptoms worsen or if you develop any dizziness, shortness of breath, difficulty breathing, chest pain, blurry vision, loss of vision, nausea, vomiting, abdominal pain, fever, chills, back pain, or any other complaints. Prescriptions: No Action ciprofloxacin HCl 500 mg tablet 500 mg PO Q12H 7 Days Qty: 14 0RF ondansetron 4 mg tablet,disintegrating 4 mg PO Q6-8H PRN (Reason: nausea and vomiting) Qty: 8 0RF Stand Alone Forms: Work/School Release Interventions: ED Discharge Assessment Last Done: 02/18/24 09:51 Discharge Date/Time: 02/18/24 10:12 Print Language: [place]i
[2024-02-18 06:37] VITALS: BP 126/84; PULSE 94; RESP 16; TEMP 36.7; O2SAT 94
[2024-02-18] MEDS: ondansetron HCL 4 MG/2 ML VIAL IVPUSH (07:41)
[2024-02-18] MEDS: Pantoprazole Sodium 40 MG/10 ML VIAL IVPUSH (07:41)
[2024-02-18] MEDS: Morphine Sulfate 4 MG/ML CARTRIDGE IVPUSH (07:41)
[2024-02-18] MEDS: 0.9 % Sodium Chloride 1,000 ML 999 ML IV (07:41)
--- NOTE | 2024-02-18 07:46 | PC.NURSE ---
Pt medicated per MAR for pain/nausea. Milk of mag held off at this time due to nausea. Family at bedside, eating taco shaw.
[2024-02-18 08:05] LABS: Influenza A PCR NEGATIVE (Negative); Influenza B PCR NEGATIVE (Negative); Resp Syncy Virus RNA Qual PCR NEGATIVE (Negative); SARS COV2 PCR INHOUSE NEGATIVE (Negative)
--- NOTE | 2024-02-18 08:34 | PC.NURSE ---
Pt asleep on stretcher, with respirations equal/unlabored.
--- NOTE | 2024-02-18 08:44 | PC.NURSE ---
Pt ambulatory with a steady gait to the BR to provide urine sample.
[2024-02-18 09:04] LABS: Appearance Urine Clear; Color Urine Yellow; Glucose Urine UA >=1000 mg/dL (Negative); Leukocyte Esterase Urine Negative (Negative); Nitrite Urine Negative (Negative); Specific Gravity - Urine >= 1.030 (1.005-1.025); UMIC TRIGGER UACC YES; Urine Blood Negative (Negative); Urine Ketones Negative (Negative); Urine Protein Negative (Neg-Trace)
[2024-02-18 09:16] LABS: Bacteria Urine None Seen (None Seen); Hyaline Casts Urine 0-2 /LPF (0-2); RBC Urine 0-2 /HPF (0-2); Squamous Epithelial Cell Urine 0-2 /HPF (0-2); WBC Urine 0-5 /HPF (0-5)
[2024-02-18 09:47] VITALS: BP 111/69; PULSE 82; RESP 12; TEMP 36.5; O2SAT 94
[2024-02-18 09:51] VITALS: BP 111/69; PULSE 82; RESP 12; TEMP 36.5; O2SAT 94
== END 2024-02-18 10:12 | disposition home or self-care (01) ==
PROVIDERS: Physician Assistant Medical; Emergency Provider Emergency Medicine
DX: R10.13 Epigastric pain (principal); R10.2 Pelvic and perineal pain; R42 Dizziness and giddiness; R11.2 Nausea with vomiting, unspecified; Z03.818 Encounter for observation for suspected exposure to other biological agents ruled out; Z79.899 Other long term (current) drug therapy
CPT/HCPCS: 0241U; 36415; 80048; 80076; 81001; 81003; 82947; 83690; 85025; 93005; 96361; 96374; 96375; 99284; 99285; J2270; J2405; J2470

== ENCOUNTER → 2024-02-18 05:04 | Outpatient (BNV) | payer OTHER, SELFPAY | PROVIDERS: Emergency Provider Emergency Medicine; Visit Provider Internal Medicine | DX: R10.9 Unspecified abdominal pain (principal) | CPT/HCPCS: 93010 ==